=== PATIENT | male | born 1960 | race Native Hawaiian/Other Pacific Islander ===

== ENCOUNTER 2023-06-22 05:08 | Emergency (ER) | payer MEDICARE ==
[2023-06-22 05:30] VITALS: TEMP 98.5
[2023-06-22 05:51] LABS: Group A Strep NOT DETECTED (NEGATIVE)
[2023-06-22 06:03] LABS: INFLUENZA A NEGATIVE (NEGATIVE); INFLUENZA B NEGATIVE (NEGATIVE); RESPIRATORY SYNCTIAL VIRUS NEGATIVE (NEGATIVE); SARS-CoV-2 Xpert Express NEGATIVE (NEGATIVE)
--- NOTE | 2023-06-22 06:43 | ERPHSYRPT ---
- History of Present Illness Source: patient Exam Limitations: no limitations Patient Subjective Stated Complaint: pt states he has cough and chest congestions for last 4 days. Triage Nursing Assessment: pt alert and oriented, answers questions approp. pt ambulates into room iwth steady gait noted. respirations nonlabored with dry cough occasionally. exp wheezes noted bilat. skin warm and dry. Hx Tetanus, Diphtheria Vaccination/Date Given: Yes Hx Influenza Vaccination/Date Given: Yes Hx Pneumococcal Vaccination/Date Given: Yes Immunizations Up to Date: Yes <KIKE JONHSON - Last Filed: 06/22/23 06:39> <SALLY LONDON - Last Filed: 06/22/23 09:02> - History of Present Illness Time Seen by Provider: 06/22/23 06:09 Physician History: 63-year-old male with history of hypertension, hyperlipidemia, CVA with some residual weakness presented in the ER with complaints of chest congestion and cough for the last 4 days. Patient reports coughing up clear to yellow sputum small in amount and because of repeated coughing having generalized chest soreness. Cough gets worse especially at nighttime with inability to sleep. Reports feeling weak fatigued and tired/worn out. No fever or chills reported. Mild shortness of breath with activity. (KIKE JOHNSON) Allergies/Adverse Reactions: lisinopril Adverse Reaction (Severe, Verified 06/22/23 05:30) Swelling of Tongue and Lips bandaid Allergy (Mild, Uncoded 06/22/23 05:30) Rash Travel Risk - International Travel Have you traveled outside of the country in past 3 weeks: No - Coronavirus Screening Are you exhibiting any of the following symptoms?: Yes Symptoms: Cough: New Onset, Headaches/Body Aches/Fatigue Close contact with a COVID-19 positive Pt in past 14-21 Days: No - Vaccine Status Have you recieved a Covid-19 vaccination: Yes Access Coordinator: Moderna - Vaccination Dates Date of 2cond Vaccination (if applicable): 2022 <KIKE JOHNSON - Last Filed: 06/22/23 06:39> - Review of Systems Constitutional: Fatigue, Weakness Eyes: No Symptoms Ears, Nose, & Throat: No Symptoms Respiratory: Cough, Dyspnea, Dyspnea on Exertion (CHILD), Wheezing Cardiac: No Symptoms Abdominal/Gastrointestinal: No Symptoms Genitourinary Symptoms: No Symptoms Musculoskeletal: No Symptoms Skin: No Symptoms Neurological: No Headache Hematologic/Lymphatic: No Symptoms Immunological/Allergic: No Symptoms <KALE JOHNSONR - Last Filed: 06/22/23 06:39> - Past Medical History Neurological History: Stroke Cardiac History: Coronary Artery Disease, Hypertension, Myocardial Infarction (NM) History: Other - Past Surgical History Past Surgical History: Yes Genitourinary: Other Musculoskeletal: Orthopedic Surgery Other Surgical History: kidney stone, bilat shoulder surgeries, thumb surgery - Social History Smoking Status: Never smoker Exposure to second hand smoke: No Drug Use: none Patient Lives Alone: No <KIKE JOHNSON - Last Filed: 06/22/23 06:39> - Physical Exam General Appearance: no apparent distress, alert Eye Exam: PERRL/EOMI Ears, Nose, Throat Exam: hearing grossly normal, pharyngeal erythema Neck Exam: normal inspection, supple, full range of motion Respiratory Exam: diminished breath sounds, wheezing Cardiovascular/Chest Exam: normal heart sounds, regular rate/rhythm Abdominal/Gastrointestinal Exam: soft, normal bowel sounds, No tenderness Neurologic Exam: alert, oriented x 3, cooperative Skin Exam: normal color SpO2 Interpretation: normal SpO2: 92 O2 Delivery: Room Air <KIKE JOHNSON - Last Filed: 06/22/23 06:39> - Nursing Vital Signs Nursing Vital Signs: Initial Vital Signs Temperature 98.5 F 06/22/23 05:13 Pulse Rate 77 06/22/23 05:13 Respiratory Rate 16 06/22/23 05:13 Blood Pressure 165/99 06/22/23 05:13 O2 Sat by Pulse Oximetry 94 L 06/22/23 05:13 Pain Scale Pain Intensity 5 Ordered Tests: Active Orders 24 hr Category Date Time Status Fingerer STAT Care 06/22/23 06:38 Active EKG-ER Only STAT Care 06/22/23 06:38 Active IV Insertion STAT Care 06/22/23 06:38 Active CHEST 1 VIEW (PORTABLE) Stat Exams 06/22/23 05:40 Completed BLOOD CULTURE Stat Lab 06/22/23 07:00 Received CBC W DIFF Stat Lab 06/22/23 06:50 Completed CMP Stat Lab 06/22/23 06:50 Completed Lactic Acid Stat Lab 06/22/23 06:38 Completed MAGNESIUM Stat Lab 06/22/23 06:50 Completed NT PRO BNPII Stat Lab 06/22/23 06:50 Completed PROCALCITONIN Stat Lab 06/22/23 06:50 Completed TROPONIN Q4H Lab 06/22/23 06:50 Completed TROPONIN Q4H Lab 06/22/23 10:45 Ordered TROPONIN Q4H Lab 06/22/23 14:45 Ordered Medication Summary Discontinued Medications Generic Name Dose Route Start Last Admin Trade Name Cait PRN Reason Stop Dose Admin Albuterol/Ipratropium 3 ml 06/22/23 06:38 06/22/23 07:11 Ipratropium/Albuterol Sulfate 3 Ml Ampul.Neb IH 06/22/23 06:39 3 ml STAT ONE Administration Albuterol/Ipratropium Confirm 06/22/23 07:08 Ipratropium/Albuterol Sulfate 3 Ml Ampul.Neb Administered 06/22/23 07:09 Dose 3 ml IH .STK-MED ONE Methylprednisolone Sodium 0 mg 06/22/23 07:17 06/22/23 07:42 Succinate 125 mg/ Sterile IV 06/22/23 07:18 125 mg Water 2 ml STAT ONE Administration Ceftriaxone Sodium 1 gm in 100 mls @ 200 mls/hr 06/22/23 07:16 06/22/23 08:14 Rocephin 1 Gm / 100 Ml Nacl IV 06/22/23 07:45 Infused STAT ONE Infusion Ceftriaxone Sodium Confirm 06/22/23 07:31 Rocephin 1 Gm / 100 Ml Nacl Administered 06/22/23 07:32 Dose 1 gm in 100 mls @ ud IV .STK-MED ONE Methylprednisolone Sodium Succinate Confirm 06/22/23 07:31 Methylprednis Sod Succ 125 Mg/2 Ml Vial Administered 06/22/23 07:32 Dose 125 mg .ROUTE .STK-MED ONE Sterile Water Confirm 06/22/23 07:31 Water For Injection,Sterile 10 Ml Vial Administered 06/22/23 07:32 Dose 10 ml IJ .STK-MED ONE Lab/Rad Data: Laboratory Result Diagrams 06/22/23 06:50 06/22/23 06:50 Laboratory Results 06/22/23 06/22/23 06/22/23 Range/Units 06:50 06:50 06:50 WBC 9.6 (4.0-10.5) x10^3/uL RBC 3.95 L (4.1-5.6) x10^6/uL Hgb 12.7 (12.5-18.0) g/dL Hct 37.9 L (42-50) % MCV 95.9 (78-100) fL MCH 32.2 H (26-32) pg MCHC 33.5 (32-36) g/dL RDW 13.5 (11.5-14.0) % Plt Count 166 (150-450) x10^3/uL MPV 9.3 (7.5-11.0) fL Gran % 66.3 H (36.0-66.0) % Immature Gran % (Auto) 0.3 (0.00-0.4) % Nucleat RBC Rel Count 0.0 (0.00-0.1) % Eos # (Auto) 0.25 (0-0.5) x10^3/uL Immature Gran # (Auto) 0.03 (0.00-0.03) x10^3u/L Absolute Lymphs (auto) 1.64 (1.0-4.6) x10^3/uL Absolute Monos (auto) 1.28 (0.0-1.3) x10^3/uL Absolute Nucleated RBC 0.00 (0.00-0.01) x10^3u/L Lymphocytes % 17.0 L (24.0-44.0) % Monocytes % 13.3 H (0.0-12.0) % Eosinophils % 2.6 (0.00-5.0) % Basophils % 0.5 (0.0-0.4) % Absolute Granulocytes 6.39 (1.4-6.9) x10^3/uL Basophils # 0.05 (0-0.4) x10^3/uL Sodium 140 (137-145) mmol/L Potassium 3.4 L (3.5-5.1) mmol/L Chloride 108 H (98-107) mmol/L Carbon Dioxide 32 H (22-30) mmol/L Anion Gap 3.7 L (5-15) MEQ/L BUN 11 (9-20) mg/dL Creatinine 0.87 (0.66-1.25) mg/dL Estimated GFR 95.8 ML/MIN Glucose 103 (74-106) mg/dL Lactic Acid (0.4-2.0) Calcium 9.0 (8.4-10.2) mg/dL Magnesium 2.2 (1.6-2.3) mg/dL Total Bilirubin 0.80 (0.2-1.3) mg/dL AST 28 (17-59) U/L ALT 30 (0-50) U/L Alkaline Phosphatase 79 (38-126) U/L Troponin I < 0.012 (0.000-0.034) ng/mL NT-Pro-B Natriuret Pep 144 (<300) pg/mL Serum Total Protein 7.2 (6.3-8.2) g/dL Albumin 3.7 (3.5-5.0) g/dL Procalcitonin 0.213 H (0.030-0.080) ng/mL Influenza Type A Ag (NEGATIVE) Influenza Type B Ag (NEGATIVE) RSV (PCR) (NEGATIVE) SARS-CoV-2 (PCR) (NEGATIVE) Group A Strep Antibody (NEGATIVE) 06/22/23 06/22/23 Range/Units 06:38 05:20 WBC (4.0-10.5) x10^3/uL RBC (4.1-5.6) x10^6/uL Hgb (12.5-18.0) g/dL Hct (42-50) % MCV (78-100) fL MCH (26-32) pg MCHC (32-36) g/dL RDW (11.5-14.0) % Plt Count (150-450) x10^3/uL MPV (7.5-11.0) fL Gran % (36.0-66.0) % Immature Gran % (Auto) (0.00-0.4) % Nucleat RBC Rel Count (0.00-0.1) % Eos # (Auto) (0-0.5) x10^3/uL Immature Gran # (Auto) (0.00-0.03) x10^3u/L Absolute Lymphs (auto) (1.0-4.6) x10^3/uL Absolute Monos (auto) (0.0-1.3) x10^3/uL Absolute Nucleated RBC (0.00-0.01) x10^3u/L Lymphocytes % (24.0-44.0) % Monocytes % (0.0-12.0) % Eosinophils % (0.00-5.0) % Basophils % (0.0-0.4) % Absolute Granulocytes (1.4-6.9) x10^3/uL Basophils # (0-0.4) x10^3/uL Sodium (137-145) mmol/L Potassium (3.5-5.1) mmol/L Chloride (98-107) mmol/L Carbon Dioxide (22-30) mmol/L Anion Gap (5-15) MEQ/L BUN (9-20) mg/dL Creatinine (0.66-1.25) mg/dL Estimated GFR ML/MIN Glucose (74-106) mg/dL Lactic Acid 0.7 (0.4-2.0) Calcium (8.4-10.2) mg/dL Magnesium (1.6-2.3) mg/dL Total Bilirubin (0.2-1.3) mg/dL AST (17-59) U/L ALT (0-50) U/L Alkaline Phosphatase (38-126) U/L Troponin I (0.000-0.034) ng/mL NT-Pro-B Natriuret Pep (<300) pg/mL Serum Total Protein (6.3-8.2) g/dL Albumin (3.5-5.0) g/dL Procalcitonin (0.030-0.080) ng/mL Influenza Type A Ag NEGATIVE (NEGATIVE) Influenza Type B Ag NEGATIVE (NEGATIVE) RSV (PCR) NEGATIVE (NEGATIVE) SARS-CoV-2 (PCR) NEGATIVE (NEGATIVE) Group A Strep Antibody NOT DETECTED (NEGATIVE) - Progress Progress: improved, re-examined Air Movement: fair Blood Culture(s) Obtained: Yes Antibiotics given: Yes <SALLY LONDON - Last Filed: 06/22/23 09:02> - Progress Progress Note: 06/22/23 08:58 The initial chest x-ray was interpreted by Dr. Johnson. He felt that there was bibasilar airspace disease. The final interpretation was performed by the radiologist and his interpretation is no acute cardiopulmonary process. However, the patient did present with shortness of breath and had lower than expected oxygen saturation levels which have improved to the point where he is ambulating up and down the oropeza with a oxygen saturation level of 93 to 94%. In addition, the patient has an elevated procalcitonin level. We provided the pat jasbir with Rocephin 1 g intravenously. I will remotely send a prescription of Levaquin, prednisone and albuterol inhaler (if he does not have nebulizer treatments available) to his pharmacy. (SALLY LONDON) Medical Desision Making - Diagnostic Testing Diagnostic test were ordered, analyzed, and reviewed by me: Yes Radiological Interpretation: Reviewed by me, Teleradiologist Report - Risk of complications The pt has a mod risk of morbidity or mortality based on: Need for prescription drug management <SALLY LONDON - Last Filed: 06/22/23 09:02> <KIKE JOHNSON - Last Filed: 06/22/23 06:39> - Departure Departure Disposition: Home Critical Care Time: No <SALLY LONDON - Last Filed: 06/22/23 09:02> - Departure Clinical Impression: Upper respiratory infection, Shortness of breath Condition: Stable Additional Instructions: Drink plenty of fluids. Take your medication as prescribed. Avoid exposure to any type of smoke. Call your primary care physician today, 06/22/2023, to make arranges for follow-up appointment the next 3 to 5 days. Prescriptions: Prednisone 10 mg [Deltasone 10 mg] 10 mg PO TID #12 tablet Levofloxacin [Levaquin 500 MG Tablet] 500 mg PO DAILY #7 tablet Albuterol 8 gm Mdi Hfa [Ventolin Hfa MDI] 8 gm IH Q4H #1 unit
[2023-06-22] MEDS ORDERED: DUONEB 0.5-3 MG/3 ml Neb IH ONE (07:08)
[2023-06-22] MEDS: DUONEB 0.5-3 MG/3 ml Neb IH ONE (07:11)
[2023-06-22 07:16] LABS: Absolute Neutrophil Ct (ANC) 6.39 x10^3/uL (1.4-6.9); BASOPHIL % 0.5 % (0.0-0.4); Basophil (Absolute #) 0.05 x10^3/uL (0-0.4); Eosinophil % 2.6 % (0.00-5.0); Eosinophil (Absolute #) 0.25 x10^3/uL (0-0.5); Hematocrit 37.9 % (42-50); Hemoglobin 12.7 g/dL (12.5-18.0); IMMATURE GRAN # 0.03 x10^3u/L (0.00-0.03); IMMATURE GRAN % 0.3 % (0.00-0.4); Lymphocyte (Absolute #) 1.64 x10^3/uL (1.0-4.6); Mean Cell Volume 95.9 fL (78-100); Mean Corpuscular Hemoglobin 32.2 pg (26-32); Mean Corpuscular Hgb Concent. 33.5 g/dL (32-36); Mean Platelet Volume 9.3 fL (7.5-11.0); Monocyte (Absolute #) 1.28 x10^3/uL (0.0-1.3); Monocytes % 13.3 % (0.0-12.0); Neutrophil % 66.3 % (36.0-66.0); Platelet Count 166 x10^3/uL (150-450); Red Blood Count 3.95 x10^6/uL (4.1-5.6); Red Cell Distribution Width 13.5 % (11.5-14.0); White Blood Count 9.6 x10^3/uL (4.0-10.5)
[2023-06-22] MEDS ORDERED: solu-MEDROL ONE (07:31)
[2023-06-22] MEDS ORDERED: ROCEPHIN 1 GM / 100 ML NaCl 1 GM/100 ML IVPB IV ONE (07:31)
[2023-06-22] MEDS ORDERED: Sterile H2O 10 ml IJ ONE (07:31)
[2023-06-22 07:41] LABS: ALBUMIN 3.7 g/dL (3.5-5.0); ANION GAP 3.7 MEQ/L (5-15); BILIRUBIN,TOTAL 0.8 mg/dL (0.2-1.3); Creatinine 1 0.87 mg/dL (0.66-1.25); EST GLOMERULAR FILTRATION RATE 95.8 ML/MIN; MAGNESIUM 2.2 mg/dL (1.6-2.3); PROCALCITONIN 0.213 ng/mL (0.030-0.080); Potassium 3.4 mmol/L (3.5-5.1); Total Protein 7.2 g/dL (6.3-8.2)
[2023-06-22] MEDS: solu-MEDROL 125 MG, Sterile H2O 10 ml 2 ML IV ONE (07:42)
[2023-06-22] MEDS: ROCEPHIN 1 GM / 100 ML NaCl 1 GM/100 ML IVPB IV ONE (07:43)
--- NOTE | 2023-06-22 08:48 | XRAY ---
Indication: Cough and congestion. Comparison: None Portable chest inflated and clear. Heart not enlarged with mild tortuous descending aorta. Bony thorax intact. No acute findings.
[2023-06-22 09:51] VITALS: BP 147/94; PULSE 68; RESP 16; O2SAT 93
== END 2023-06-22 09:51 | disposition home or self-care (01) ==
LOC: ED 05:08
DX: J06.9 Acute upper respiratory infection, unspecified (principal); R06.02 Shortness of breath; R05.1 Acute cough; I10 Essential (primary) hypertension; E78.5 Hyperlipidemia, unspecified; Z79.52 Long term (current) use of systemic steroids
CPT/HCPCS: 0241U; 36000; 36415; 71045; 80053; 83605; 83735; 83880; 84145; 84484; 85025; 87040; 87651; 93005; 93041; 94640; 96374; 99284; J0696; J2930; A9270-GY

== ENCOUNTER 2024-01-28 08:12 | Inpatient (IN) | payer MEDICARE ==
--- NOTE | 2024-01-28 08:18 | ERPHSYRPT ---
- History of Present Illness Time Seen by Provider: 01/28/24 08:18 Source: patient, family, EMS, old records Physician History: This is a 63-year-old white male patient of nurse practitioner natacha who was brought into the emergency department by the paramedics secondary to frequent falls. Since last evening, the patient has fallen 3 times. There has been, recently, issues with the patient having low blood pressure and his primary care provider has removed a single antihypertensive agent per patient report. Despite this change, the patient states he is fallen 3 times since last evening. He complains of left shoulder pain, left hip pain and lower back pain. Patient is seeing a pain specialist, Dr. Rutledge, on 01/31/2024. Patient has a history of hypertension, hyperlipidemia, CVA with residual weakness and coronary artery disease. Patient does not have chest pain or shortness of breath at this time. Patient had a systolic blood pressure of 74 at home when the paramedics arrived to bring him to the emergency department. Patient arrives to the emergency department with intravenous normal saline running and his systolic blood pressure on arrival is 94. Paramedics placed a c-collar on this patient. He is awake alert and oriented. Patient states he is not on any narcotic medication but did start gabapentin recently. Occurred: yesterday Injuries/Pain Location: head, neck, upper extremity, back (Lower back), lower extremity (Left shoulder left hip), lower Loss of Consciousness: no loss of consciousness Quality: aching Severity of Pain-Max: mild Severity of Pain-Current: mild Modifying Factors: Improves With: movement Associated Symptoms (Fall): dizziness, extremity injury (Left shoulder), lightheadedness, No chest pain, No shortness of breath, No vision changes Allergies/Adverse Reactions: lisinopril Adverse Reaction (Severe, Verified 01/28/24 08:16) Swelling of Tongue and Lips bandaid Allergy (Mild, Uncoded 01/28/24 08:16) Rash Home Medications: Unobtainable 01/28/24 [History] Hx Tetanus, Diphtheria Vaccination/Date Given: Yes Hx Influenza Vaccination/Date Given: Yes Hx Pneumococcal Vaccination/Date Given: Yes Travel Risk - International Travel Have you traveled outside of the country in past 3 weeks: No - Emerging Infectious Disease Are you exhibiting symptoms associated with any current EIDs: No - Review of Systems Constitutional: Weakness Eyes: No Symptoms Ears, Nose, & Throat: No Symptoms Respiratory: No Symptoms Cardiac: No Symptoms Abdominal/Gastrointestinal: No Symptoms Genitourinary Symptoms: No Symptoms Musculoskeletal: Back Pain, Fall, Joint Pain (Bilateral hip pain left [place] right) Skin: No Symptoms Neurological: Dizziness Psychological: No Symptoms Endocrine: No Symptoms Hematologic/Lymphatic: No Symptoms Immunological/Allergic: No Symptoms All Other Systems: Reviewed and Negative - Past Medical History Neurological History: Stroke Cardiac History: Coronary Artery Disease, Hypertension, Myocardial Infarction ([place]) History: Other - Past Surgical History Past Surgical History: Yes Genitourinary: Other Musculoskeletal: Orthopedic Surgery Other Surgical History: kidney stone, bilat shoulder surgeries, thumb surgery - Social History Smoking Status: Never smoker Exposure to second hand smoke: No Drug Use: none Patient Lives Alone: No - Nursing Vital Signs Nursing Vital Signs: Initial Vital Signs Pulse Rate 99 H 01/28/24 08:13 Respiratory Rate 23 01/28/24 08:13 Blood Pressure 95/52 01/28/24 08:13 O2 Sat by Pulse Oximetry 92 L 01/28/24 08:13 Pain Scale Pain Intensity 8 - [place] Coma Score Best Eye Response ([place]): (4) open spontaneously Best Verbal Response ([place]): (5) oriented Best Motor Response ([place]): (6) obeys commands [place] Total: 15 - Physical Exam General Appearance: no apparent distress, alert, anxiety Head Injury: no evidence of injury Eye Exam: PERRL/EOMI, eyes nml inspection ENT Exam: airway nml, nml ext.inspection Neck Exam: trachea midline, c-collar in place Cardiovascular Exam: normal heart sounds, regular rate/rhythm, normal peripheral pulses Gastrointestinal Exam: soft, normal bowel sounds, No tenderness Rectal Exam: not done Back Exam: normal inspection, normal range of motion, No CVA tenderness, No vertebral tenderness Extremity Exam: normal inspection, normal range of motion, pelvis stable, hip tenderness (Bilateral), No deformities Neurologic Exam: alert, oriented x 3, cooperative, barrel waterer II-XII nml as tested, sensation nml Skin Exam: normal color SpO2 Interpretation: borderline oxygenation O2 Delivery: Room Air - Course Nursing assessment & vital signs reviewed: Yes Ordered Tests: Active Orders 24 hr Category Date Time Status EKG-ER Only STAT Care 01/28/24 08:22 Active Pulse Oximetry (ED) STAT Care 01/28/24 08:22 Active Telemetry q4h Care 01/28/24 09:10 Active CERVICAL SPINE WO CONTRAST [CT] Stat Exams 01/28/24 08:23 Completed CHEST 1 VIEW (PORTABLE) Stat Exams 01/28/24 10:55 Completed HEAD WITHOUT CONTRAST [CT] Stat Exams 01/28/24 08:23 Completed HIP JOSE ALBERTO (4V) INCL PELV IF DONE Stat Exams 01/28/24 08:24 Completed LUMBAR LIMITED (2 OR 3 VIEWS) Stat Exams 01/28/24 08:24 Completed SHOULDER Stat Exams 01/28/24 08:24 Completed BLOOD CULTURE Stat Lab 01/28/24 11:48 Ordered CBC W DIFF Stat Lab 01/28/24 08:36 Completed CMP Stat Lab 01/28/24 08:36 Completed ETHYL ALCOHOL Stat Lab 01/28/24 08:36 Completed Lactic Acid Stat Lab 01/28/24 11:15 Completed MAGNESIUM Stat Lab 01/28/24 08:36 Completed MONO SCREEN Stat Lab 01/28/24 08:30 Completed NT PRO BNPII Stat Lab 01/28/24 08:36 Completed TROPONIN Q4H Lab 01/28/24 08:36 Completed TROPONIN Q4H Lab 01/28/24 10:45 Completed TROPONIN Q4H Lab 01/28/24 16:30 Ordered UA W/RFX UR CULTURE Stat Lab 01/28/24 10:34 Completed Urine Triage Profile Stat Lab 01/28/24 10:34 Completed Medication Summary Generic Name Dose Route Start Last Admin Trade Name Freq PRN Reason Stop Dose Admin Sodium Chloride 1,000 mls @ 100 mls/hr 01/28/24 08:30 01/28/24 09:27 Sodium Chloride 0.9% 1000 Ml IV 02/27/24 08:29 200 mls/hr .Q10H ANG Administration Ceftriaxone Sodium 1 gm in 100 mls @ 200 mls/hr 01/28/24 12:00 Rocephin 1 Gm / 100 Ml Nacl IV 01/28/24 12:29 STAT ONE Discontinued Medications Generic Name Dose Route Start Last Admin Trade Name Freq PRN Reason Stop Dose Admin Acetaminophen 650 mg 01/28/24 10:38 01/28/24 10:46 Acetaminophen 325 Mg Tablet PO 01/28/24 10:39 650 mg STAT ONE Administration Acetaminophen Confirm 01/28/24 10:45 Acetaminophen 325 Mg Tablet Administered 01/28/24 10:46 Dose 650 mg .ROUTE .STK-MED ONE Acetaminophen Confirm 01/28/24 10:48 Acetaminophen 325 Mg Tablet Administered 01/28/24 10:49 Dose 325 mg .ROUTE .STK-MED ONE Acetaminophen Confirm 01/28/24 10:53 Acetaminophen 325 Mg Tablet Administered 01/28/24 10:54 Dose 650 mg .ROUTE .STK-MED ONE Potassium Chloride 20 meq in 100 mls @ 50 mls/hr 01/28/24 09:10 01/28/24 09:30 Potassium Chloride 20 Meq In Water 100ml IV 01/28/24 11:09 50 mls/hr STAT ONE Administration Magnesium Sulfate/Dextrose 100 mls @ 200 mls/hr 01/28/24 09:10 01/28/24 09:32 Magnesium 1 Gm / 100 Ml D5w IV 01/28/24 09:39 200 mls/hr STAT ONE Administration Magnesium Sulfate/Dextrose Confirm 01/28/24 09:25 Magnesium 1 Gm / 100 Ml D5w Administered 01/28/24 09:26 Dose 100 mls @ ud IV .STK-MED ONE Potassium Chloride Confirm 01/28/24 09:25 Potassium Chloride 20 Meq In Water 100ml Administered 01/28/24 09:26 Dose 100 mls @ ud IV .STK-MED ONE Potassium Chloride 20 meq 01/28/24 09:10 01/28/24 09:37 Potassium Chloride Tab 10 Meq Tab PO 01/28/24 09:11 Not Given STAT ONE Potassium Chloride Confirm 01/28/24 09:24 Potassium Chloride Tab 10 Meq Tab Administered 01/28/24 09:25 Dose 20 meq .ROUTE .STK-MED ONE Lab/Rad Data: Laboratory Result Diagrams 01/28/24 08:36 01/28/24 08:36 Laboratory Results 01/28/24 01/28/24 01/28/24 Range/Units 11:15 10:45 10:34 WBC (4.23-9.07) x10^3/uL RBC (4.63-6.08) x10^6/uL Hgb (13.7-17.5) g/dL Hct (40.1-51.0) % MCV (79.0-92.2) fL MCH (25.7-32.2) pg MCHC (32.3-36.5) g/dL RDW (11.6-14.4) % Plt Count (163-337) x10^3/uL MPV (9.4-12.4) fL Gran % (34.0-67.9) % Immature Gran % (Auto) (0.001-0.429) % Nucleat RBC Rel Count (0.00-0.2) % Eos # (Auto) (0.04-0.54) x10^3/uL Immature Gran # (Auto) (0.001-0.031) x10^3u/L Absolute Lymphs (auto) (1.32-3.57) x10^3/uL Absolute Monos (auto) (0.30-0.82) x10^3/uL Absolute Nucleated RBC (0.00-0.012) x10^3u/L Lymphocytes % (21.8-53.1) % Monocytes % (5.3-12.2) % Eosinophils % (0.8-7.0) % Basophils % (0.2-1.2) % Absolute Granulocytes (1.78-5.38) x10^3/uL Basophils # (0.01-0.08) x10^3/uL Sodium (135-145) mmol/L Potassium (3.5-5.1) mmol/L Chloride (98-107) mmol/L Carbon Dioxide (22-30) mmol/L Anion Gap (5-15) MEQ/L BUN (9-20) mg/dL Creatinine (0.66-1.25) mg/dL Estimated GFR ML/MIN Glucose (74-106) mg/dL Lactic Acid 1.8 (0.4-2.0) Calcium (8.4-10.2) mg/dL Magnesium (1.6-2.3) mg/dL Total Bilirubin (0.2-1.3) mg/dL AST (17-59) U/L ALT (0-50) U/L Alkaline Phosphatase (38-126) U/L Troponin I 0.028 (0.000-0.033) ng/mL NT-Pro-B Natriuret Pep (<300) pg/mL Serum Total Protein (6.3-8.2) g/dL Albumin (3.5-5.0) g/dL Urine Color (Yellow) Urine Appearance (Clear) Urine pH (4.6-8.0) Ur Specific [place] (1.005-1.030) Urine Protein (Negative) Urine Glucose (UA) (Negative) mg/dL Urine Ketones (Negative) Urine Blood (Negative) Urine Nitrite (Negative) Urine Bilirubin (Negative) Urine Urobilinogen (0.2) mg/dL Ur Leukocyte Esterase (Negative) U Hyaline Cast (Auto) (0-2) /LPF Urine Microscopic RBC (0-5) /HPF Urine Microscopic WBC (0-5) /HPF Ur Epithelial Cells (None Seen) /HPF Urine Bacteria (None Seen) /HPF Urine Culture Reflexed (NO) Urine Opiates Level NEGATIVE (NEGATIVE) Ur Methadone NEGATIVE (NEGATIVE) Urine Barbiturates NEGATIVE (NEGATIVE) Ur Phencyclidine (PCP) NEGATIVE (NEGATIVE) Urine Amphetamine NEGATIVE (NEGATIVE) U Benzodiazepine Level NEGATIVE (NEGATIVE) Urine Cocaine NEGATIVE (NEGATIVE) Urine Marijuana (THC) NEGATIVE (NEGATIVE) Ethyl Alcohol (0-10) mg/dL Monoscreen (NEGATIVE) Slides for Path Review 01/28/24 01/28/24 01/28/24 Range/Units 10:34 08:36 08:36 WBC (4.23-9.07) x10^3/uL RBC (4.63-6.08) x10^6/uL Hgb (13.7-17.5) g/dL Hct (40.1-51.0) % MCV (79.0-92.2) fL MCH (25.7-32.2) pg MCHC (32.3-36.5) g/dL RDW (11.6-14.4) % Plt Count (163-337) x10^3/uL MPV (9.4-12.4) fL Gran % (34.0-67.9) % Immature Gran % (Auto) (0.001-0.429) % Nucleat RBC Rel Count (0.00-0.2) % Eos # (Auto) (0.04-0.54) x10^3/uL Immature Gran # (Auto) (0.001-0.031) x10^3u/L Absolute Lymphs (auto) (1.32-3.57) x10^3/uL Absolute Monos (auto) (0.30-0.82) x10^3/uL Absolute Nucleated RBC (0.00-0.012) x10^3u/L Lymphocytes % (21.8-53.1) % Monocytes % (5.3-12.2) % Eosinophils % (0.8-7.0) % Basophils % (0.2-1.2) % Absolute Granulocytes (1.78-5.38) x10^3/uL Basophils # (0.01-0.08) x10^3/uL Sodium 141 (135-145) mmol/L Potassium 2.8 L* (3.5-5.1) mmol/L Chloride 112 H (98-107) mmol/L Carbon Dioxide 24 (22-30) mmol/L Anion Gap 7.8 (5-15) MEQ/L BUN 16 (9-20) mg/dL Creatinine 1.71 H (0.66-1.25) mg/dL Estimated GFR 43.9 ML/MIN Glucose 108 H (74-106) mg/dL Lactic Acid (0.4-2.0) Calcium 8.3 L (8.4-10.2) mg/dL Magnesium 1.3 L (1.6-2.3) mg/dL Total Bilirubin 0.70 (0.2-1.3) mg/dL AST 26 (17-59) U/L ALT 21 (0-50) U/L Alkaline Phosphatase 69 (38-126) U/L Troponin I 0.033 (0.000-0.033) ng/mL NT-Pro-B Natriuret Pep 3030 (<300) pg/mL Serum Total Protein 5.4 L (6.3-8.2) g/dL Albumin 2.8 L (3.5-5.0) g/dL Urine Color Yellow (Yellow) Urine Appearance Cloudy A (Clear) Urine pH 7.0 (4.6-8.0) Ur Specific [place] 1.010 (1.005-1.030) Urine Protein Trace A (Negative) Urine Glucose (UA) Negative (Negative) mg/dL Urine Ketones Negative (Negative) Urine Blood Moderate A (Negative) Urine Nitrite Negative (Negative) Urine Bilirubin Negative (Negative) Urine Urobilinogen 0.2 (0.2) mg/dL Ur Leukocyte Esterase Moderate A (Negative) U Hyaline Cast (Auto) 3-5 A (0-2) /LPF Urine Microscopic RBC 51-100 A (0-5) /HPF Urine Microscopic WBC 51-100 A (0-5) /HPF Ur Epithelial Cells None Seen (None Seen) /HPF Urine Bacteria Many A (None Seen) /HPF Urine Culture Reflexed ORDERED SEPARATELY (NO) Urine Opiates Level (NEGATIVE) Ur Methadone (NEGATIVE) Urine Barbiturates (NEGATIVE) Ur Phencyclidine (PCP) (NEGATIVE) Urine Amphetamine (NEGATIVE) U Benzodiazepine Level (NEGATIVE) Urine Cocaine (NEGATIVE) Urine Marijuana (THC) (NEGATIVE) Ethyl Alcohol < 10 (0-10) mg/dL Monoscreen (NEGATIVE) Slides for Path Review 01/28/24 01/28/24 Range/Units 08:36 08:30 WBC 21.5 H (4.23-9.07) x10^3/uL RBC 3.57 L (4.63-6.08) x10^6/uL Hgb 11.2 L (13.7-17.5) g/dL Hct 34.0 L (40.1-51.0) % MCV 95.2 H (79.0-92.2) fL MCH 31.4 (25.7-32.2) pg MCHC 32.9 (32.3-36.5) g/dL RDW 13.4 (11.6-14.4) % Plt Count 140 L (163-337) x10^3/uL MPV 9.2 L (9.4-12.4) fL Gran % 82.7 H (34.0-67.9) % Immature Gran % (Auto) 0.7 H (0.001-0.429) % Nucleat RBC Rel Count 0.0 (0.00-0.2) % Eos # (Auto) 0 L (0.04-0.54) x10^3/uL Immature Gran # (Auto) 0.15 H (0.001-0.031) x10^3u/L Absolute Lymphs (auto) 0.76 L (1.32-3.57) x10^3/uL Absolute Monos (auto) 2.77 H (0.30-0.82) x10^3/uL Absolute Nucleated RBC 0.00 (0.00-0.012) x10^3u/L Lymphocytes % 3.5 L (21.8-53.1) % Monocytes % 12.9 H (5.3-12.2) % Eosinophils % 0.0 L (0.8-7.0) % Basophils % 0.2 (0.2-1.2) % Absolute Granulocytes 17.76 H (1.78-5.38) x10^3/uL Basophils # 0.04 (0.01-0.08) x10^3/uL Sodium (135-145) mmol/L Potassium (3.5-5.1) mmol/L Chloride (98-107) mmol/L Carbon Dioxide (22-30) mmol/L Anion Gap (5-15) MEQ/L BUN (9-20) mg/dL Creatinine (0.66-1.25) mg/dL Estimated GFR ML/MIN Glucose (74-106) mg/dL Lactic Acid (0.4-2.0) Calcium (8.4-10.2) mg/dL Magnesium (1.6-2.3) mg/dL Total Bilirubin (0.2-1.3) mg/dL AST (17-59) U/L ALT (0-50) U/L Alkaline Phosphatase (38-126) U/L Troponin I (0.000-0.033) ng/mL NT-Pro-B Natriuret Pep (<300) pg/mL Serum Total Protein (6.3-8.2) g/dL Albumin (3.5-5.0) g/dL Urine Color (Yellow) Urine Appearance (Clear) Urine pH (4.6-8.0) Ur Specific [place] (1.005-1.030) Urine Protein (Negative) Urine Glucose (UA) (Negative) mg/dL Urine Ketones (Negative) Urine Blood (Negative) Urine Nitrite (Negative) Urine Bilirubin (Negative) Urine Urobilinogen (0.2) mg/dL Ur Leukocyte Esterase (Negative) U Hyaline Cast (Auto) (0-2) /LPF Urine Microscopic RBC (0-5) /HPF Urine Microscopic WBC (0-5) /HPF Ur Epithelial Cells (None Seen) /HPF Urine Bacteria (None Seen) /HPF Urine Culture Reflexed (NO) Urine Opiates Level (NEGATIVE) Ur Methadone (NEGATIVE) Urine Barbiturates (NEGATIVE) Ur Phencyclidine (PCP) (NEGATIVE) Urine Amphetamine (NEGATIVE) U Benzodiazepine Level (NEGATIVE) Urine Cocaine (NEGATIVE) Urine Marijuana (THC) (NEGATIVE) Ethyl Alcohol (0-10) mg/dL Monoscreen NEGATIVE (NEGATIVE) Slides for Path Review YES - Progress Progress: improved, re-examined Progress Note: 01/28/24 08:34 Medical decision making and the assignment of moderate complexity to this patient's medical issue today is based on review of the patient's past medical history, review the patient's medication list, reviewed patient drug allergy list, history present illness and physical findings on examination. The workup in this patient includes placement of intravenous line, infusion normal saline solution, twelve-lead EKG, troponin level, CBC, CMP, magnesium level, urinalysi s, ethyl alcohol level, urine drug triage, CT scan of the head, CT scan of cervical spine, x-ray left shoulder, x-ray lumbar spine, x-ray of bilateral hips. Differential diagnosis includes but is not limited to hypotension induced dizziness and falls, anemia induced dizziness and fall, arrhythmia, dehydration, urinary tract infection, myocardial infarction, electrolyte abnormalities 01/28/24 10:17 The following radiographic studies were all interpreted by the radiologist and I reviewed the impression: Left shoulder x-ray no acute fracture or dislocation. Lumbar spine x-ray mild multilevel thoracolumbar degenerative changes without acute fracture or subluxation. Bilateral hip/pelvic x-ray no acute fracture or dislocation. CT scan without contrast of cervical spine shows no acute fracture or subluxation. There is mild bilateral TMJ degenerative changes. CT scan of the head without contrast shows paranasal sinus disease. Remainder of the study is within normal limits. 01/28/24 11:47 The chest x-ray was interpreted by the radiologist and I reviewed the impression. The impression states no new, acute findings. 01/28/24 12:01 I interpreted the patient's laboratory data results. Based on the patient's laboratory data results, the patient has a significant urinary tract infection and a significant leukocytosis and left shift. The patient's lactic acid level is normal. Patient's repeat troponin level is normal and decreased from the prior troponin level. I had briefly reviewed this patient's workup with Dr. Barrientos, our telehospitalist on at this time. I ordered the chest x-ray and troponin as well as a lactic acid level per her request. These were all normal. However, the urinalysis also returned and the patient has a significant urinary tract infection and likely has urosepsis causing the hypotension and the leukocytosis. 01/28/24 12:[address] Barrientos and updated her on the most recent laboratory data results. We will place this patient on telemetry and a full admission. I have started another bolus of normal saline solution. I also provided the patient with 1 g of Rocephin intravenously. Counseled pt/family regarding: lab results, diagnosis, rad results Medical Desision Making - Discussion of managment Care discussed with:: hospitalist Reviewed:: Test results, Need for additional workup Agreed on:: decision to admit Will see patient: in hospital - Diagnostic Testing Diagnostic test were ordered, analyzed, and reviewed by me: Yes Radiological Interpretation: Reviewed by me, Teleradiologist Report - Risk of complications The pt has a high risk of morbidity or mortality based on: Decision regarding hospitilization or escalation of hosp level of care - Departure Departure Disposition: In-patient Admission Clinical Impression: UTI (urinary tract infection), Hypotension, Hypokalemia, Hypomagnesemia, Fall with no significant injury Condition: Fair Critical Care Time: Yes Critical Care Time(excluding separately billable procedures): Critical 30-74 mins (50 minutes) Referrals: MARINA LEO NP [NON-STAFF PHY W/O PRIVILEGES] - Follow up/PCP as directed
[2024-01-28 08:44] LABS: Absolute Neutrophil Ct (ANC) 17.76 x10^3/uL (1.78-5.38); BASOPHIL % 0.2 % (0.2-1.2); Basophil (Absolute #) 0.04 x10^3/uL (0.01-0.08); Eosinophil (Absolute #) 0 x10^3/uL (0.04-0.54); Hemoglobin 11.2 g/dL (13.7-17.5); IMMATURE GRAN # 0.15 x10^3u/L (0.001-0.031); IMMATURE GRAN % 0.7 % (0.001-0.429); Lymphocyte (Absolute #) 0.76 x10^3/uL (1.32-3.57); Lymphocytes % 3.5 % (21.8-53.1); Mean Cell Volume 95.2 fL (79.0-92.2); Mean Corpuscular Hemoglobin 31.4 pg (25.7-32.2); Mean Corpuscular Hgb Concent. 32.9 g/dL (32.3-36.5); Mean Platelet Volume 9.2 fL (9.4-12.4); Monocyte (Absolute #) 2.77 x10^3/uL (0.30-0.82); Monocytes % 12.9 % (5.3-12.2); Neutrophil % 82.7 % (34.0-67.9); Platelet Count 140 x10^3/uL (163-337); Red Blood Count 3.57 x10^6/uL (4.63-6.08); Red Cell Distribution Width 13.4 % (11.6-14.4); White Blood Count 21.5 x10^3/uL (4.23-9.07)
[2024-01-28 09:03] LABS: Slide Review 1 YES
[2024-01-28 09:06] LABS: ALBUMIN 2.8 g/dL (3.5-5.0); ALKALINE PHOSPHATASE 69 U/L (38-126); ANION GAP 7.8 MEQ/L (5-15); BLOOD UREA NITROGEN 16 mg/dL (9-20); CHLORIDE 112 mmol/L (98-107); Calcium 8.3 mg/dL (8.4-10.2); Carbon Dioxide 24 mmol/L (22-30); Creatinine 1 1.71 mg/dL (0.66-1.25); EST GLOMERULAR FILTRATION RATE 43.9 ML/MIN; ETHYL ALCOHOL < 10 mg/dL (0-10); Glucose 108 mg/dL (74-106); MAGNESIUM 1.3 mg/dL (1.6-2.3); NT PRO BNPII 3030 pg/mL (<300); SGOT/AST 26 U/L (17-59); SGPT/ALT 21 U/L (0-50); SODIUM 141 mmol/L (135-145); Total Protein 5.4 g/dL (6.3-8.2)
[2024-01-28 09:08] LABS: Potassium 2.8 mmol/L (3.5-5.1)
[2024-01-28] MEDS ORDERED: Klor Con ONE (09:24)
[2024-01-28] MEDS ORDERED: POTASSIUM CHLORIDE 20 mEq IN WATER 100ML 100 ML IV ONE (09:25)
[2024-01-28] MEDS ORDERED: Sodium Chloride 0.9% 1000 ML 0 ML ONE (09:25)
[2024-01-28] MEDS ORDERED: Magnesium 1 Gm / 100 Ml D5W*** 100 ML IV ONE (09:25)
[2024-01-28] MEDS: Sodium Chloride 0.9% 1000 ML 1,000 ML IV SCH (09:27)
[2024-01-28] MEDS: POTASSIUM CHLORIDE 20 mEq IN WATER 100ML 20 MEQ/100 ML BAG IV ONE (09:30)
[2024-01-28] MEDS: Magnesium 1 Gm / 100 Ml D5W*** 100 ML IV ONE (09:32)
[2024-01-28] MEDS: Klor Con PO ONE (09:37)
[2024-01-28] MEDS ORDERED: Sodium Chloride 0.9% 1000 ML 1,000 ML ONE ×2 (09:46→13:07)
--- NOTE | 2024-01-28 09:53 | XRAY ---
Indication: Pain. Frequent falls. Multiple contiguous axial images obtained through the head without contrast. Comparison: None Normal appearing brain parenchyma, ventricles, and bony calvarium for patient's age. Mild mucosal thickening both ethmoid and lesser degree both frontal sinuses without fluid leveling. Mastoid air cells are clear. Impression: Paranasal sinus disease. Remaining CT head without contrast exam is normal.
--- NOTE | 2024-01-28 09:55 | XRAY ---
Indication: Pain. Frequent falls. Multiple contiguous axial images obtained through the cervical spine. Sagittal and coronal reformatted images obtained. Comparison: None Osseous structures demineralized. Axial images negative for acute fracture, suspicious bony lesions, or spinal canal stenosis. Minimal/mild C3-C7 degenerative endplate spurring and mild multilevel bilateral degenerative facet hypertrophy. Sagittal and coronal reformatted images demonstrates normal alignment with C5-C7 disc space narrowing. No acute compression fracture, subluxation, or jumped facet. Normal appearing craniocervical junction. Mild bilateral TMJ degenerative changes. Visualized noncontrasted soft tissues demonstrates minimal left carotid calcifications. Lung apices clear. Impression: 1. Chronic findings including osteopenia, multilevel degenerative spondylosis, bilateral TMJ degenerative changes, and left carotid calcifications. 2. Remaining CT cervical spine is negative.
--- NOTE | 2024-01-28 09:55 | XRAY ---
Indication: Fall injury. Comparison: None 3 view left shoulder demonstrates osteopenia, minimal AC degenerative arthropathy, tiny left carotid calcifications, right hemidiaphragm elevation, and borderline cardiomegaly. No other bony, articular, or soft tissue abnormalities.
--- NOTE | 2024-01-28 09:57 | XRAY ---
Indication: Fall injury. Comparison: None AP pelvis and 2 view left/right hip demonstrates osteopenia, small left superior acetabular spurring, and lower lumbar degenerative spondylosis reported separately. No other bony, articular, or soft tissue abnormalities.
--- NOTE | 2024-01-28 09:57 | XRAY ---
Indication: Fall injury. Comparison: None 3 view lumbar spine demonstrates 5 lumbar segments with osteopenia, mild dextroscoliosis centered at L1, minimal/mild multilevel thoracolumbar degenerative spondylosis greatest at L4-L5, and minimal scattered vascular calcifications. No other bony, articular, or soft tissue abnormalities.
[2024-01-28] MEDS ORDERED: TYLENOL 325 MG ONE ×3 (10:45→10:53)
[2024-01-28] MEDS: TYLENOL 325 MG PO ONE (10:46)
--- NOTE | 2024-01-28 11:39 | XRAY ---
Indication: Leukocytosis. Comparison: June 22, 2023 Portable chest again demonstrates normal heart and lungs. Bony thorax intact. No new/acute findings.
[2024-01-28 11:50] LABS: Appearance Cloudy (Clear); Bacteria Many /HPF (None Seen); Bilirubin Negative (Negative); Blood Moderate (Negative); Epithelial Cells None Seen /HPF (None Seen); Glucose, Urine Negative (Negative); Ketones Negative (Negative); Leukocyte Esterase Moderate (Negative); Nitrite Negative (Negative); Protein,Urine Dip Trace (Negative); RBC 51-100 /HPF (0-5); Urobilinogen 0.2 mg/dL (0.2); WBC 51-100 /HPF (0-5)
[2024-01-28 11:58] LABS: ADD URINE CULTURE? ORDERED SEPARATELY (NO)
[2024-01-28 12:06] LABS: Amphetamine,Urine NEGATIVE (NEGATIVE); Barbiturate,Urine NEGATIVE (NEGATIVE); Benzodiazepine,Urine NEGATIVE (NEGATIVE); Cocaine,Urine NEGATIVE (NEGATIVE); Methadone,Urine NEGATIVE (NEGATIVE); Opiate,Urine NEGATIVE (NEGATIVE); PCP,Urine NEGATIVE (NEGATIVE); THC,Urine NEGATIVE (NEGATIVE)
[2024-01-28] MEDS ORDERED: ROCEPHIN 1 GM / 100 ML NaCl 1 GM/100 ML IVPB IV ONE (12:10)
[2024-01-28] MEDS: ROCEPHIN 1 GM / 100 ML NaCl 1 GM/100 ML IVPB IV ONE (12:13)
[2024-01-28 12:35] LABS: INFLUENZA A NEGATIVE (NEGATIVE); INFLUENZA B NEGATIVE (NEGATIVE); RESPIRATORY SYNCTIAL VIRUS NEGATIVE (NEGATIVE); SARS-CoV-2 Xpert Express NEGATIVE (NEGATIVE)
[2024-01-28] MEDS: Sodium Chloride 0.9% 1000 ML 1,000 ML IV STA (13:08)
--- NOTE | 2024-01-28 14:13 | PCM.HP ---
<IJEOMA PORTILLO - Last Filed: 01/28/24 14:37> History of Present Illness - Chief Complaint Chief Complaint: Urosepsis Date: 01/28/24 History of Present Illness: Mr.MCMULLEN BRYSON is a 63 year old male with a pmhx of kidney stones, NE, CAD, Stroke, HTN, and MT who presented to ED 01/28/24 after experiencing several (7 x per pt report) falls at home. He reports that he has had ongoing hypotension and has been worked up OP by his PCP who has cut one of his BP meds in half (unsure of the name). Patient had a systolic blood pressure of 74 at home when the paramedics arrived to bring him to the emergency department. Patient arrives to the emergency department with intravenous normal saline running and his systolic blood pressure on arrival is 94. He also reports that he has noticed frequency with urination, hematuria, and right flank pain. Patient states that he had stones removed from both right and left ureters last month with Dr. Barahona/[place]. He states that one of his fall was resultant from him slipping on urine after he attempted to edwards to the bathroom to urinate but did not make it in time. Upon arrival to ED, patient was tachycardic and hypotensive. CT scan without contrast of cervical spine shows no acute fracture or subluxation. There is mild bilateral TMJ degenerative changes. CT scan of the head without contrast shows paranasal sinus disease. Remainder of the study is within normal limits. CXR with no acute findings. Left shoulder x-ray no acute fracture or dislocation. Lumbar spine x-ray mild multilevel thoracolumbar degenerative changes without acute fracture or subluxation. Bilateral hip/pelvic x-ray no acute fracture or dislocation. Lab findings remarkable for leukocytosis with WBC at 21.5, macrocytic anemia with hgb at 11.2, hypokalemia at 2.8, hypomagnesemia at 1.3, LIZ with creat at 1.71 (baselin e around 0.87), and BNP at 3030. UA with blood/moderate leukocytes. Patient was given a fluid bolus, rocephin, potassium, and magnesium in ED. Admit for urosepsis/LIZ/hypokalemia/hypomagnesemia. Plan for continued IV abx/IVF, electrolyte replenishment. - Review of Systems Constitutional: Weakness Eyes: No Symptoms Ears, Nose, & Throat: No Symptoms Respiratory: No Symptoms Cardiac: No Symptoms Abdominal/Gastrointestinal: No Symptoms Genitourinary Symptoms: Frequency, Hematuria, Flank Pain (right ) Musculoskeletal: Fall, Joint Pain Skin: No Symptoms Neurological: No Symptoms Psychological: No Symptoms Endocrine: No Symptoms Hematologic/Lymphatic: Anemia Immunological/Allergic: No Symptoms Medications & Allergies Home Medications: Home Medication List Amlodipine Besylate 5 mg [Norvasc 5 mg] 5 mg PO DAILY 01/28/24 [History Confirmed 01/28/24] Atorvastatin Calcium [Lipitor 40Mg] 40 mg PO DAILY 01/28/24 [History Confirmed 01/28/24] Fenofibrate 54 mg PO DAILY 01/28/24 [History Confirmed 01/28/24] Furosemide 20 mg [Lasix 20 mg] 20 mg PO DAILY 01/28/24 [History Confirmed 01/28/24] Gabapentin [Neurontin] 800 mg PO TID 01/28/24 [History Confirmed 01/28/24] Tamsulosin HCl 0.4 mg [Flomax 0.4 MG] 0.4 mg PO DAILY 01/28/24 [History Confirmed 01/28/24] Trazodone HCl 50 mg [Desyrel 50 mg] 50 mg PO HS 01/28/24 [History Confirmed 01/28/24] Vibegron [Gemtesa] 75 mg PO HS 01/28/24 [History Confirmed 01/28/24] Allergies/Adverse Reactions: Allergies Allergy/AdvReac Type Severity Reaction Status Date / Time lisinopril AdvReac Severe Swelling Verified 01/28/24 08:16 of Tongue and Lips bandaid Allergy Mild Rash Uncoded 01/28/24 08:16 - Past Medical History Neurological History: Stroke Cardiac History: Coronary Artery Disease, Hypertension, Myocardial Infarction (NE) History: Other Comment: restless leg sydrome ,incont of urine - Past Surgical History Past Surgical History: Yes Genitourinary Surgical Hx: Other Musculskeletal Surgical Hx: Orthopedic Surgery Other Surgical History: kidney stone, bilat shoulder surgeries, thumb surgery - Social History Smoking Status: Never smoker Exposure to second hand smoke: No Alcohol: None Drug Use: none - Social Determinants of Health Will the patient participate in the screening: Declined to provide - Physical Exam Vital Signs: Vital Signs - 24 hr Temp Pulse Resp BP BP Pulse Ox 01/28/24 13:42 98.0 F 67 18 111/69 94 L 01/28/24 13:00 84 21 105/68 94 L 01/28/24 12:30 78 22 94/63 94 L 01/28/24 11:45 95 H 19 90/57 94 L 01/28/24 11:30 98 H 22 91/58 95 01/28/24 11:16 82 17 102/67 95 01/28/24 11:00 100 H 18 101/57 96 01/28/24 10:45 93 H 21 82/54 96 01/28/24 10:30 96 H 20 87/52 94 L 01/28/24 10:15 85 16 76/55 93 L 01/28/24 10:01 97 01/28/24 10:00 94 H 23 78/49 97 01/28/24 09:45 98 H 22 77/62 98 01/28/24 09:30 91 H 20 73/42 94 L 01/28/24 09:15 100 H 22 73/43 97 01/28/24 09:05 102 H 20 76/45 95 01/28/24 08:30 96 H 21 72/40 93 L 01/28/24 08:18 98.5 F 100 H 22 95/42 94 L 01/28/24 08:13 99 H 23 95/52 92 L General Appearance: no apparent distress Neurologic Exam: alert, oriented x 3, cooperative Eye Exam: PERRL/EOMI Ears, Nose, Throat Exam: normal ENT inspection Neck Exam: normal inspection Respiratory Exam: normal breath sounds, lungs clear Cardiovascular Exam: regular rate/rhythm, normal heart sounds Gastrointestinal/Abdomen Exam: soft Rectal Exam: deferred Back Exam: normal inspection Extremity Exam: normal inspection Skin Exam: normal color Results - Labs Lab/Micro Results: Lab Results-Last 24 Hours 01/28/24 01/28/24 01/28/24 Range/Units 08:30 08:36 08:36 WBC 21.5 H (4.23-9.07) x10^3/uL RBC 3.57 L (4.63-6.08) x10^6/uL Hgb 11.2 L (13.7-17.5) g/dL Hct 34.0 L (40.1-51.0) % MCV 95.2 H (79.0-92.2) fL MCH 31.4 (25.7-32.2) pg MCHC 32.9 (32.3-36.5) g/dL RDW 13.4 (11.6-14.4) % Plt Count 140 L (163-337) x10^3/uL MPV 9.2 L (9.4-12.4) fL Gran % 82.7 H (34.0-67.9) % Immature Gran % (Auto) 0.7 H (0.001-0.429) % Nucleat RBC Rel Count 0.0 (0.00-0.2) % Eos # (Auto) 0 L (0.04-0.54) x10^3/uL Immature Gran # (Auto) 0.15 H (0.001-0.031) x10^3u/L Absolute Lymphs (auto) 0.76 L (1.32-3.57) x10^3/uL Absolute Monos (auto) 2.77 H (0.30-0.82) x10^3/uL Absolute Nucleated RBC 0.00 (0.00-0.012) x10^3u/L Lymphocytes % 3.5 L (21.8-53.1) % Monocytes % 12.9 H (5.3-12.2) % Eosinophils % 0.0 L (0.8-7.0) % Basophils % 0.2 (0.2-1.2) % Absolute Granulocytes 17.76 H (1.78-5.38) x10^3/uL Basophils # 0.04 (0.01-0.08) x10^3/uL Sodium 141 (135-145) mmol/L Potassium 2.8 L* (3.5-5.1) mmol/L Chloride 112 H (98-107) mmol/L Carbon Dioxide 24 (22-30) mmol/L Anion Gap 7.8 (5-15) MEQ/L BUN 16 (9-20) mg/dL Creatinine 1.71 H (0.66-1.25) mg/dL Estimated GFR 43.9 ML/MIN Glucose 108 H (74-106) mg/dL Lactic Acid (0.4-2.0) Calcium 8.3 L (8.4-10.2) mg/dL Magnesium 1.3 L (1.6-2.3) mg/dL Total Bilirubin 0.70 (0.2-1.3) mg/dL AST 26 (17-59) U/L ALT 21 (0-50) U/L Alkaline Phosphatase 69 (38-126) U/L Troponin I (0.000-0.033) ng/mL NT-Pro-B Natriuret Pep 3030 (<300) pg/mL Serum Total Protein 5.4 L (6.3-8.2) g/dL Albumin 2.8 L (3.5-5.0) g/dL Urine Color (Yellow) Urine Appearance (Clear) Urine pH (4.6-8.0) Ur Specific Allen (1.005-1.030) Urine Protein (Negative) Urine Glucose (UA) (Negative) mg/dL Urine Ketones (Negative) Urine Blood (Negative) Urine Nitrite (Negative) Urine Bilirubin (Negative) Urine Urobilinogen (0.2) mg/dL Ur Leukocyte Esterase (Negative) U Hyaline Cast (Auto) (0-2) /LPF Urine Microscopic RBC (0-5) /HPF Urine Microscopic WBC (0-5) /HPF Ur Epithelial Cells (None Seen) /HPF Urine Bacteria (None Seen) /HPF Urine Culture Reflexed (NO) Urine Opiates Level (NEGATIVE) Ur Methadone (NEGATIVE) Urine Barbiturates (NEGATIVE) Ur Phencyclidine (PCP) (NEGATIVE) Urine Amphetamine (NEGATIVE) U Benzodiazepine Level (NEGATIVE) Urine Cocaine (NEGATIVE) Urine Marijuana (THC) (NEGATIVE) Ethyl Alcohol < 10 (0-10) mg/dL Monoscreen NEGATIVE (NEGATIVE) Influenza Type A Ag (NEGATIVE) Influenza Type B Ag (NEGATIVE) RSV (PCR) (NEGATIVE) SARS-CoV-2 (PCR) (NEGATIVE) Group A Strep Antibody (NEGATIVE) Slides for Path Review YES 01/28/24 01/28/24 01/28/24 Range/Units 08:36 10:34 10:34 WBC (4.23-9.07) x10^3/uL RBC (4.63-6.08) x10^6/uL Hgb (13.7-17.5) g/dL Hct (40.1-51.0) % MCV (79.0-92.2) fL MCH (25.7-32.2) pg MCHC (32.3-36.5) g/dL RDW (11.6-14.4) % Plt Count (163-337) x10^3/uL MPV (9.4-12.4) fL Gran % (34.0-67.9) % Immature Gran % (Auto) (0.001-0.429) % Nucleat RBC Rel Count (0.00-0.2) % Eos # (Auto) (0.04-0.54) x10^3/uL Immature Gran # (Auto) (0.001-0.031) x10^3u/L Absolute Lymphs (auto) (1.32-3.57) x10^3/uL Absolute Monos (auto) (0.30-0.82) x10^3/uL Absolute Nucleated RBC (0.00-0.012) x10^3u/L Lymphocytes % (21.8-53.1) % Monocytes % (5.3-12.2) % Eosinophils % (0.8-7.0) % Basophils % (0.2-1.2) % Absolute Granulocytes (1.78-5.38) x10^3/uL Basophils # (0.01-0.08) x10^3/uL Sodium (135-145) mmol/L Potassium (3.5-5.1) mmol/L Chloride (98-107) mmol/L Carbon Dioxide (22-30) mmol/L Anion Gap (5-15) MEQ/L BUN (9-20) mg/dL Creatinine (0.66-1.25) mg/dL Estimated GFR ML/MIN Glucose (74-106) mg/dL Lactic Acid (0.4-2.0) Calcium (8.4-10.2) mg/dL Magnesium (1.6-2.3) mg/dL Total Bilirubin (0.2-1.3) mg/dL AST (17-59) U/L ALT (0-50) U/L Alkaline Phosphatase (38-126) U/L Troponin I 0.033 (0.000-0.033) ng/mL NT-Pro-B Natriuret Pep (<300) pg/mL Serum Total Protein (6.3-8.2) g/dL Albumin (3.5-5.0) g/dL Urine Color Yellow (Yellow) Urine Appearance Cloudy A (Clear) Urine pH 7.0 (4.6-8.0) Ur Specific Allen 1.010 (1.005-1.030) Urine Protein Trace A (Negative) Urine Glucose (UA) Negative (Negative) mg/dL Urine Ketones Negative (Negative) Urine Blood Moderate A (Negative) Urine Nitrite Negative (Negative) Urine Bilirubin Negative (Negative) Urine Urobilinogen 0.2 (0.2) mg/dL Ur Leukocyte Esterase Moderate A (Negative) U Hyaline Cast (Auto) 3-5 A (0-2) /LPF Urine Microscopic RBC 51-100 A (0-5) /HPF Urine Microscopic WBC 51-100 A (0-5) /HPF Ur Epithelial Cells None Seen (None Seen) /HPF Urine Bacteria Many A (None Seen) /HPF Urine Culture Reflexed ORDERED SEPARATELY (NO) Urine Opiates Level NEGATIVE (NEGATIVE) Ur Methadone NEGATIVE (NEGATIVE) Urine Barbiturates NEGATIVE (NEGATIVE) Ur Phencyclidine (PCP) NEGATIVE (NEGATIVE) Urine Amphetamine NEGATIVE (NEGATIVE) U Benzodiazepine Level NEGATIVE (NEGATIVE) Urine Cocaine NEGATIVE (NEGATIVE) Urine Marijuana (THC) NEGATIVE (NEGATIVE) Ethyl Alcohol (0-10) mg/dL Monoscreen (NEGATIVE) Influenza Type A Ag (NEGATIVE) Influenza Type B Ag (NEGATIVE) RSV (PCR) (NEGATIVE) SARS-CoV-2 (PCR) (NEGATIVE) Group A Strep Antibody (NEGATIVE) Slides for Path Review 01/28/24 01/28/24 01/28/24 Range/Units 10:45 11:15 11:50 WBC (4.23-9.07) x10^3/uL RBC (4.63-6.08) x10^6/uL Hgb (13.7-17.5) g/dL Hct (40.1-51.0) % MCV (79.0-92.2) fL MCH (25.7-32.2) pg MCHC (32.3-36.5) g/dL RDW (11.6-14.4) % Plt Count (163-337) x10^3/uL MPV (9.4-12.4) fL Gran % (34.0-67.9) % Immature Gran % (Auto) (0.001-0.429) % Nucleat RBC Rel Count (0.00-0.2) % Eos # (Auto) (0.04-0.54) x10^3/uL Immature Gran # (Auto) (0.001-0.031) x10^3u/L Absolute Lymphs (auto) (1.32-3.57) x10^3/uL Absolute Monos (auto) (0.30-0.82) x10^3/uL Absolute Nucleated RBC (0.00-0.012) x10^3u/L Lymphocytes % (21.8-53.1) % Monocytes % (5.3-12.2) % Eosinophils % (0.8-7.0) % Basophils % (0.2-1.2) % Absolute Granulocytes (1.78-5.38) x10^3/uL Basophils # (0.01-0.08) x10^3/uL Sodium (135-145) mmol/L Potassium (3.5-5.1) mmol/L Chloride (98-107) mmol/L Carbon Dioxide (22-30) mmol/L Anion Gap (5-15) MEQ/L BUN (9-20) mg/dL Creatinine (0.66-1.25) mg/dL Estimated GFR ML/MIN Glucose (74-106) mg/dL Lactic Acid 1.8 (0.4-2.0) Calcium (8.4-10.2) mg/dL Magnesium (1.6-2.3) mg/dL Total Bilirubin (0.2-1.3) mg/dL AST (17-59) U/L ALT (0-50) U/L Alkaline Phosphatase (38-126) U/L Troponin I 0.028 (0.000-0.033) ng/mL NT-Pro-B Natriuret Pep (<300) pg/mL Serum Total Protein (6.3-8.2) g/dL Albumin (3.5-5.0) g/dL Urine Color (Yellow) Urine Appearance (Clear) Urine pH (4.6-8.0) Ur Specific Allen (1.005-1.030) Urine Protein (Negative) Urine Glucose (UA) (Negative) mg/dL Urine Ketones (Negative) Urine Blood (Negative) Urine Nitrite (Negative) Urine Bilirubin (Negative) Urine Urobilinogen (0.2) mg/dL Ur Leukocyte Esterase (Negative) U Hyaline Cast (Auto) (0-2) /LPF Urine Microscopic RBC (0-5) /HPF Urine Microscopic WBC (0-5) /HPF Ur Epithelial Cells (None Seen) /HPF Urine Bacteria (None Seen) /HPF Urine Culture Reflexed (NO) Urine Opiates Level (NEGATIVE) Ur Methadone (NEGATIVE) Urine Barbiturates (NEGATIVE) Ur Phencyclidine (PCP) (NEGATIVE) Urine Amphetamine (NEGATIVE) U Benzodiazepine Level (NEGATIVE) Urine Cocaine (NEGATIVE) Urine Marijuana (THC) (NEGATIVE) Ethyl Alcohol (0-10) mg/dL Monoscreen (NEGATIVE) Influenza Type A Ag (NEGATIVE) Influenza Type B Ag (NEGATIVE) RSV (PCR) (NEGATIVE) SARS-CoV-2 (PCR) (NEGATIVE) Group A Strep Antibody NOT DETECTED (NEGATIVE) Slides for Path Review 01/28/24 Range/Units 11:50 WBC (4.23-9.07) x10^3/uL RBC (4.63-6.08) x10^6/uL Hgb (13.7-17.5) g/dL Hct (40.1-51.0) % MCV (79.0-92.2) fL MCH (25.7-32.2) pg MCHC (32.3-36.5) g/dL RDW (11.6-14.4) % Plt Count (163-337) x10^3/uL MPV (9.4-12.4) fL Gran % (34.0-67.9) % Immature Gran % (Auto) (0.001-0.429) % Nucleat RBC Rel Count (0.00-0.2) % Eos # (Auto) (0.04-0.54) x10^3/uL Immature Gran # (Auto) (0.001-0.031) x10^3u/L Absolute Lymphs (auto) (1.32-3.57) x10^3/uL Absolute Monos (auto) (0.30-0.82) x10^3/uL Absolute Nucleated RBC (0.00-0.012) x10^3u/L Lymphocytes % (21.8-53.1) % Monocytes % (5.3-12.2) % Eosinophils % (0.8-7.0) % Basophils % (0.2-1.2) % Absolute Granulocytes (1.78-5.38) x10^3/uL Basophils # (0.01-0.08) x10^3/uL Sodium (135-145) mmol/L Potassium (3.5-5.1) mmol/L Chloride (98-107) mmol/L Carbon Dioxide (22-30) mmol/L Anion Gap (5-15) MEQ/L BUN (9-20) mg/dL Creatinine (0.66-1.25) mg/dL Estimated GFR ML/MIN Glucose (74-106) mg/dL Lactic Acid (0.4-2.0) Calcium (8.4-10.2) mg/dL Magnesium (1.6-2.3) mg/dL Total Bilirubin (0.2-1.3) mg/dL AST (17-59) U/L ALT (0-50) U/L Alkaline Phosphatase (38-126) U/L Troponin I (0.000-0.033) ng/mL NT-Pro-B Natriuret Pep (<300) pg/mL Serum Total Protein (6.3-8.2) g/dL Albumin (3.5-5.0) g/dL Urine Color (Yellow) Urine Appearance (Clear) Urine pH (4.6-8.0) Ur Specific Allen (1.005-1.030) Urine Protein (Negative) Urine Glucose (UA) (Negative) mg/dL Urine Ketones (Negative) Urine Blood (Negative) Urine Nitrite (Negative) Urine Bilirubin (Negative) Urine Urobilinogen (0.2) mg/dL Ur Leukocyte Esterase (Negative) U Hyaline Cast (Auto) (0-2) /LPF Urine Microscopic RBC (0-5) /HPF Urine Microscopic WBC (0-5) /HPF Ur Epithelial Cells (None Seen) /HPF Urine Bacteria (None Seen) /HPF Urine Culture Reflexed (NO) Urine Opiates Level (NEGATIVE) Ur Methadone (NEGATIVE) Urine Barbiturates (NEGATIVE) Ur Phencyclidine (PCP) (NEGATIVE) Urine Amphetamine (NEGATIVE) U Benzodiazepine Level (NEGATIVE) Urine Cocaine (NEGATIVE) Urine Marijuana (THC) (NEGATIVE) Ethyl Alcohol (0-10) mg/dL Monoscreen (NEGATIVE) Influenza Type A Ag NEGATIVE (NEGATIVE) Influenza Type B Ag NEGATIVE (NEGATIVE) RSV (PCR) NEGATIVE (NEGATIVE) SARS-CoV-2 (PCR) NEGATIVE (NEGATIVE) Group A Strep Antibody (NEGATIVE) Slides for Path Review - Radiology Impressions Radiology Exams & Impressions: Radiology Procedures Category Date Time Status CERVICAL SPINE WO CONTRAST [CT] Stat Exams 01/28/24 08:23 Completed CHEST 1 VIEW (PORTABLE) Stat Exams 01/28/24 10:55 Completed HEAD WITHOUT CONTRAST [CT] Stat Exams 01/28/24 08:23 Completed HIP JOSE ALBERTO (4V) INCL PELV IF DONE Stat Exams 01/28/24 08:24 Completed LUMBAR LIMITED (2 OR 3 VIEWS) Stat Exams 01/28/24 08:24 Completed SHOULDER Stat Exams 01/28/24 08:24 Completed Assessment/Plan (1) Sepsis Current Visit: Yes Status: Acute Assessment & Plan: -meets criteria with tachycardia, hypotension, leukocytosis, UTI, LIZ -severe -WBC at 21.5 on admission -UA suspicious for UTI -LA WNL -Patient given 1L fluid bolus -Ceftriaxone given in ED, will continue with 2g Rocephin -Supplemental oxygen as needed for goal spo2 > 90% -CXR with no acute findings -continue IVF -Strict I&O -Target MAP > 65mmHg -Consider norepinephrine drip if patient remains hypotensive/map<65 -Stress ulcer PPI with protonix (2) UTI (urinary tract infection) Current Visit: Yes Status: Acute Assessment & Plan: -treat with Rocephin empirically- follow cultures Code(s): N39.0 - URINARY TRACT INFECTION, SITE NOT SPECIFIED (3) LIZ (acute kidney injury) Current Visit: Yes Status: Acute Assessment & Plan: -Most likely secondary to infection/hypovolemia -Avoid QUINTON/ARB/Nsaids -IVF -Monitor I&O's -Bladder scan for residual Code(s): N17.9 - ACUTE KIDNEY FAILURE, UNSPECIFIED (4) Fall with no significant injury Current Visit: Yes Status: Acute Assessment & Plan: -CT scan without contrast of cervical spine shows no acute fracture or subluxation. There is mild bilateral TMJ degenerative changes. -CT scan of the head without contrast shows paranasal sinus disease. Remainder of the study is within normal limits -Left shoulder x-ray no acute fracture or dislocation -Lumbar spine x-ray mild multilevel thoracolumbar degenerative changes without acute fracture or subluxation -Bilateral hip/pelvic x-ray no acute fracture or dislocation -Orthostatic vitals -med review -echo -consider -?infective etiology 2/2 to sepsis Code(s): W19.XXXA - UNSPECIFIED FALL, INITIAL ENCOUNTER (5) Hypokalemia Current Visit: Yes Status: Acute Assessment & Plan: -Received 20meq IV in ED, will replenish per protocol -tele Code(s): E87.6 - HYPOKALEMIA (6) Hypomagnesemia Current Visit: Yes Status: Acute Assessment & Plan: -Given 1g in ED - repeat in a.m. Code(s): E83.42 - HYPOMAGNESEMIA (7) Hypotension Current Visit: Yes Status: Acute Assessment & Plan: -stable after fluid resuscitation - hold BP meds for now- continue IVF - see sepsis -med review Code(s): I95.9 - HYPOTENSION, UNSPECIFIED (8) History of kidney stones Current Visit: Yes Status: Acute Assessment & Plan: -recent surgical intervention last month with stones removed from both right and left ureter -Bladder scan -KUB Code(s): Z87.442 - PERSONAL HISTORY OF URINARY CALCULI Telemedicine Encounter - Telemedicine Encounter Telemedicine Encounter: "The entirety of this encounter was performed via Telemedicine" This visit was performed using real-time audio and video connection between my location and thepatients locationwith the assistance of a surrogateat the patients location. Written or verbal consent was obtained from the patient/guardian to perform this visit [facility] technology. Any patient questions regarding the telemedicine interaction were answered. <BIANCA MANE - Last Filed: 01/28/24 18:42> History of Present Illness - Chief Complaint History of Present Illness: Mr.MCMULLEN BRYSON is a 63 year old male. - Physical Exam Vital Signs: Vital Signs - 24 hr Temp Pulse Resp BP BP Pulse Ox 01/28/24 16:00 98.0 F 71 18 150/76 95 01/28/24 14:55 98.0 F 67 18 111/69 94 L 01/28/24 14:24 94 L 01/28/24 13:42 98.0 F 67 18 111/69 94 L 01/28/24 13:00 84 21 105/68 94 L 01/28/24 12:30 78 22 94/63 94 L 01/28/24 11:45 95 H 19 90/57 94 L 01/28/24 11:30 98 H 22 91/58 95 01/28/24 11:16 82 17 102/67 95 01/28/24 11:00 100 H 18 101/57 96 01/28/24 10:45 93 H 21 82/54 96 01/28/24 10:30 96 H 20 87/52 94 L 01/28/24 10:15 85 16 76/55 93 L 01/28/24 10:01 97 01/28/24 10:00 94 H 23 78/49 97 01/28/24 09:45 98 H 22 77/62 98 01/28/24 09:30 91 H 20 73/42 94 L 01/28/24 09:15 100 H 22 73/43 97 01/28/24 09:05 102 H 20 76/45 95 01/28/24 08:30 96 H 21 72/40 93 L 01/28/24 08:18 98.5 F 100 H 22 95/42 94 L 01/28/24 08:13 99 H 23 95/52 92 L Results - Labs Lab/Micro Results: Lab Results-Last 24 Hours 01/28/24 01/28/24 01/28/24 Range/Units 08:30 08:36 08:36 WBC 21.5 H (4.23-9.07) x10^3/uL RBC 3.57 L (4.63-6.08) x10^6/uL Hgb 11.2 L (13.7-17.5) g/dL Hct 34.0 L (40.1-51.0) % MCV 95.2 H (79.0-92.2) fL MCH 31.4 (25.7-32.2) pg MCHC 32.9 (32.3-36.5) g/dL RDW 13.4 (11.6-14.4) % Plt Count 140 L (163-337) x10^3/uL MPV 9.2 L (9.4-12.4) fL Gran % 82.7 H (34.0-67.9) % Immature Gran % (Auto) 0.7 H (0.001-0.429) % Nucleat RBC Rel Count 0.0 (0.00-0.2) % Eos # (Auto) 0 L (0.04-0.54) x10^3/uL Immature Gran # (Auto) 0.15 H (0.001-0.031) x10^3u/L Absolute Lymphs (auto) 0.76 L (1.32-3.57) x10^3/uL Absolute Monos (auto) 2.77 H (0.30-0.82) x10^3/uL Absolute Nucleated RBC 0.00 (0.00-0.012) x10^3u/L Lymphocytes % 3.5 L (21.8-53.1) % Monocytes % 12.9 H (5.3-12.2) % Eosinophils % 0.0 L (0.8-7.0) % Basophils % 0.2 (0.2-1.2) % Absolute Granulocytes 17.76 H (1.78-5.38) x10^3/uL Basophils # 0.04 (0.01-0.08) x10^3/uL Sodium 141 (135-145) mmol/L Potassium 2.8 L* (3.5-5.1) mmol/L Chloride 112 H (98-107) mmol/L Carbon Dioxide 24 (22-30) mmol/L Anion Gap 7.8 (5-15) MEQ/L BUN 16 (9-20) mg/dL Creatinine 1.71 H (0.66-1.25) mg/dL Estimated GFR 43.9 ML/MIN Glucose 108 H (74-106) mg/dL Lactic Acid (0.4-2.0) Calcium 8.3 L (8.4-10.2) mg/dL Magnesium 1.3 L (1.6-2.3) mg/dL Total Bilirubin 0.70 (0.2-1.3) mg/dL AST 26 (17-59) U/L ALT 21 (0-50) U/L Alkaline Phosphatase 69 (38-126) U/L Troponin I (0.000-0.033) ng/mL NT-Pro-B Natriuret Pep 3030 (<300) pg/mL Serum Total Protein 5.4 L (6.3-8.2) g/dL Albumin 2.8 L (3.5-5.0) g/dL Prealbumin (17.6-36.0) mg/dL Urine Color (Yellow) Urine Appearance (Clear) Urine pH (4.6-8.0) Ur Specific Allen (1.005-1.030) Urine Protein (Negative) Urine Glucose (UA) (Negative) mg/dL Urine Ketones (Negative) Urine Blood (Negative) Urine Nitrite (Negative) Urine Bilirubin (Negative) Urine Urobilinogen (0.2) mg/dL Ur Leukocyte Esterase (Negative) U Hyaline Cast (Auto) (0-2) /LPF Urine Microscopic RBC (0-5) /HPF Urine Microscopic WBC (0-5) /HPF Ur Epithelial Cells (None Seen) /HPF Urine Bacteria (None Seen) /HPF Urine Culture Reflexed (NO) Urine Opiates Level (NEGATIVE) Ur Methadone (NEGATIVE) Urine Barbiturates (NEGATIVE) Ur Phencyclidine (PCP) (NEGATIVE) Urine Amphetamine (NEGATIVE) U Benzodiazepine Level (NEGATIVE) Urine Cocaine (NEGATIVE) Urine Marijuana (THC) (NEGATIVE) Ethyl Alcohol < 10 (0-10) mg/dL Monoscreen NEGATIVE (NEGATIVE) Influenza Type A Ag (NEGATIVE) Influenza Type B Ag (NEGATIVE) RSV (PCR) (NEGATIVE) SARS-CoV-2 (PCR) (NEGATIVE) Group A Strep Antibody (NEGATIVE) Slides for Path Review YES 01/28/24 01/28/24 01/28/24 Range/Units 08:36 10:34 10:34 WBC (4.23-9.07) x10^3/uL RBC (4.63-6.08) x10^6/uL Hgb (13.7-17.5) g/dL Hct (40.1-51.0) % MCV (79.0-92.2) fL MCH (25.7-32.2) pg MCHC (32.3-36.5) g/dL RDW (11.6-14.4) % Plt Count (163-337) x10^3/uL MPV (9.4-12.4) fL Gran % (34.0-67.9) % Immature Gran % (Auto) (0.001-0.429) % Nucleat RBC Rel Count (0.00-0.2) % Eos # (Auto) (0.04-0.54) x10^3/uL Immature Gran # (Auto) (0.001-0.031) x10^3u/L Absolute Lymphs (auto) (1.32-3.57) x10^3/uL Absolute Monos (auto) (0.30-0.82) x10^3/uL Absolute Nucleated RBC (0.00-0.012) x10^3u/L Lymphocytes % (21.8-53.1) % Monocytes % (5.3-12.2) % Eosinophils % (0.8-7.0) % Basophils % (0.2-1.2) % Absolute Granulocytes (1.78-5.38) x10^3/uL Basophils # (0.01-0.08) x10^3/uL Sodium (135-145) mmol/L Potassium (3.5-5.1) mmol/L Chloride (98-107) mmol/L Carbon Dioxide (22-30) mmol/L Anion Gap (5-15) MEQ/L BUN (9-20) mg/dL Creatinine (0.66-1.25) mg/dL Estimated GFR ML/MIN Glucose (74-106) mg/dL Lactic Acid (0.4-2.0) Calcium (8.4-10.2) mg/dL Magnesium (1.6-2.3) mg/dL Total Bilirubin (0.2-1.3) mg/dL AST (17-59) U/L ALT (0-50) U/L Alkaline Phosphatase (38-126) U/L Troponin I 0.033 (0.000-0.033) ng/mL NT-Pro-B Natriuret Pep (<300) pg/mL Serum Total Protein (6.3-8.2) g/dL Albumin (3.5-5.0) g/dL Prealbumin (17.6-36.0) mg/dL Urine Color Yellow (Yellow) Urine Appearance Cloudy A (Clear) Urine pH 7.0 (4.6-8.0) Ur Specific Allen 1.010 (1.005-1.030) Urine Protein Trace A (Negative) Urine Glucose (UA) Negative (Negative) mg/dL Urine Ketones Negative (Negative) Urine Blood Moderate A (Negative) Urine Nitrite Negative (Negative) Urine Bilirubin Negative (Negative) Urine Urobilinogen 0.2 (0.2) mg/dL Ur Leukocyte Esterase Moderate A (Negative) U Hyaline Cast (Auto) 3-5 A (0-2) /LPF Urine Microscopic RBC 51-100 A (0-5) /HPF Urine Microscopic WBC 51-100 A (0-5) /HPF Ur Epithelial Cells None Seen (None Seen) /HPF Urine Bacteria Many A (None Seen) /HPF Urine Culture Reflexed ORDERED SEPARATELY (NO) Urine Opiates Level NEGATIVE (NEGATIVE) Ur Methadone NEGATIVE (NEGATIVE) Urine Barbiturates NEGATIVE (NEGATIVE) Ur Phencyclidine (PCP) NEGATIVE (NEGATIVE) Urine Amphetamine NEGATIVE (NEGATIVE) U Benzodiazepine Level NEGATIVE (NEGATIVE) Urine Cocaine NEGATIVE (NEGATIVE) Urine Marijuana (THC) NEGATIVE (NEGATIVE) Ethyl Alcohol (0-10) mg/dL Monoscreen (NEGATIVE) Influenza Type A Ag (NEGATIVE) Influenza Type B Ag (NEGATIVE) RSV (PCR) (NEGATIVE) SARS-CoV-2 (PCR) (NEGATIVE) Group A Strep Antibody (NEGATIVE) Slides for Path Review 01/28/24 01/28/24 01/28/24 Range/Units 10:45 11:15 11:50 WBC (4.23-9.07) x10^3/uL RBC (4.63-6.08) x10^6/uL Hgb (13.7-17.5) g/dL Hct (40.1-51.0) % MCV (79.0-92.2) fL MCH (25.7-32.2) pg MCHC (32.3-36.5) g/dL RDW (11.6-14.4) % Plt Count (163-337) x10^3/uL MPV (9.4-12.4) fL Gran % (34.0-67.9) % Immature Gran % (Auto) (0.001-0.429) % Nucleat RBC Rel Count (0.00-0.2) % Eos # (Auto) (0.04-0.54) x10^3/uL Immature Gran # (Auto) (0.001-0.031) x10^3u/L Absolute Lymphs (auto) (1.32-3.57) x10^3/uL Absolute Monos (auto) (0.30-0.82) x10^3/uL Absolute Nucleated RBC (0.00-0.012) x10^3u/L Lymphocytes % (21.8-53.1) % Monocytes % (5.3-12.2) % Eosinophils % (0.8-7.0) % Basophils % (0.2-1.2) % Absolute Granulocytes (1.78-5.38) x10^3/uL Basophils # (0.01-0.08) x10^3/uL Sodium (135-145) mmol/L Potassium (3.5-5.1) mmol/L Chloride (98-107) mmol/L Carbon Dioxide (22-30) mmol/L Anion Gap (5-15) MEQ/L BUN (9-20) mg/dL Creatinine (0.66-1.25) mg/dL Estimated GFR ML/MIN Glucose (74-106) mg/dL Lactic Acid 1.8 (0.4-2.0) Calcium (8.4-10.2) mg/dL Magnesium (1.6-2.3) mg/dL Total Bilirubin (0.2-1.3) mg/dL AST (17-59) U/L ALT (0-50) U/L Alkaline Phosphatase (38-126) U/L Troponin I 0.028 (0.000-0.033) ng/mL NT-Pro-B Natriuret Pep (<300) pg/mL Serum Total Protein (6.3-8.2) g/dL Albumin (3.5-5.0) g/dL Prealbumin (17.6-36.0) mg/dL Urine Color (Yellow) Urine Appearance (Clear) Urine pH (4.6-8.0) Ur Specific Allen (1.005-1.030) Urine Protein (Negative) Urine Glucose (UA) (Negative) mg/dL Urine Ketones (Negative) Urine Blood (Negative) Urine Nitrite (Negative) Urine Bilirubin (Negative) Urine Urobilinogen (0.2) mg/dL Ur Leukocyte Esterase (Negative) U Hyaline Cast (Auto) (0-2) /LPF Urine Microscopic RBC (0-5) /HPF Urine Microscopic WBC (0-5) /HPF Ur Epithelial Cells (None Seen) /HPF Urine Bacteria (None Seen) /HPF Urine Culture Reflexed (NO) Urine Opiates Level (NEGATIVE) Ur Methadone (NEGATIVE) Urine Barbiturates (NEGATIVE) Ur Phencyclidine (PCP) (NEGATIVE) Urine Amphetamine (NEGATIVE) U Benzodiazepine Level (NEGATIVE) Urine Cocaine (NEGATIVE) Urine Marijuana (THC) (NEGATIVE) Ethyl Alcohol (0-10) mg/dL Monoscreen (NEGATIVE) Influenza Type A Ag (NEGATIVE) Influenza Type B Ag (NEGATIVE) RSV (PCR) (NEGATIVE) SARS-CoV-2 (PCR) (NEGATIVE) Group A Strep Antibody NOT DETECTED (NEGATIVE) Slides for Path Review 01/28/24 01/28/24 01/28/24 Range/Units 11:50 15:48 15:48 WBC (4.23-9.07) x10^3/uL RBC (4.63-6.08) x10^6/uL Hgb (13.7-17.5) g/dL Hct (40.1-51.0) % MCV (79.0-92.2) fL MCH (25.7-32.2) pg MCHC (32.3-36.5) g/dL RDW (11.6-14.4) % Plt Count (163-337) x10^3/uL MPV (9.4-12.4) fL Gran % (34.0-67.9) % Immature Gran % (Auto) (0.001-0.429) % Nucleat RBC Rel Count (0.00-0.2) % Eos # (Auto) (0.04-0.54) x10^3/uL Immature Gran # (Auto) (0.001-0.031) x10^3u/L Absolute Lymphs (auto) (1.32-3.57) x10^3/uL Absolute Monos (auto) (0.30-0.82) x10^3/uL Absolute Nucleated RBC (0.00-0.012) x10^3u/L Lymphocytes % (21.8-53.1) % Monocytes % (5.3-12.2) % Eosinophils % (0.8-7.0) % Basophils % (0.2-1.2) % Absolute Granulocytes (1.78-5.38) x10^3/uL Basophils # (0.01-0.08) x10^3/uL Sodium (135-145) mmol/L Potassium 3.9 D (3.5-5.1) mmol/L Chloride (98-107) mmol/L Carbon Dioxide (22-30) mmol/L Anion Gap (5-15) MEQ/L BUN (9-20) mg/dL Creatinine (0.66-1.25) mg/dL Estimated GFR ML/MIN Glucose (74-106) mg/dL Lactic Acid (0.4-2.0) Calcium (8.4-10.2) mg/dL Magnesium (1.6-2.3) mg/dL Total Bilirubin (0.2-1.3) mg/dL AST (17-59) U/L ALT (0-50) U/L Alkaline Phosphatase (38-126) U/L Troponin I 0.026 (0.000-0.033) ng/mL NT-Pro-B Natriuret Pep (<300) pg/mL Serum Total Protein (6.3-8.2) g/dL Albumin (3.5-5.0) g/dL Prealbumin (17.6-36.0) mg/dL Urine Color (Yellow) Urine Appearance (Clear) Urine pH (4.6-8.0) Ur Specific Allen (1.005-1.030) Urine Protein (Negative) Urine Glucose (UA) (Negative) mg/dL Urine Ketones (Negative) Urine Blood (Negative) Urine Nitrite (Negative) Urine Bilirubin (Negative) Urine Urobilinogen (0.2) mg/dL Ur Leukocyte Esterase (Negative) U Hyaline Cast (Auto) (0-2) /LPF Urine Microscopic RBC (0-5) /HPF Urine Microscopic WBC (0-5) /HPF Ur Epithelial Cells (None Seen) /HPF Urine Bacteria (None Seen) /HPF Urine Culture Reflexed (NO) Urine Opiates Level (NEGATIVE) Ur Methadone (NEGATIVE) Urine Barbiturates (NEGATIVE) Ur Phencyclidine (PCP) (NEGATIVE) Urine Amphetamine (NEGATIVE) U Benzodiazepine Level (NEGATIVE) Urine Cocaine (NEGATIVE) Urine Marijuana (THC) (NEGATIVE) Ethyl Alcohol (0-10) mg/dL Monoscreen (NEGATIVE) Influenza Type A Ag NEGATIVE (NEGATIVE) Influenza Type B Ag NEGATIVE (NEGATIVE) RSV (PCR) NEGATIVE (NEGATIVE) SARS-CoV-2 (PCR) NEGATIVE (NEGATIVE) Group A Strep Antibody (NEGATIVE) Slides for Path Review 01/28/24 Range/Units 15:48 WBC (4.23-9.07) x10^3/uL RBC (4.63-6.08) x10^6/uL Hgb (13.7-17.5) g/dL Hct (40.1-51.0) % MCV (79.0-92.2) fL MCH (25.7-32.2) pg MCHC (32.3-36.5) g/dL RDW (11.6-14.4) % Plt Count (163-337) x10^3/uL MPV (9.4-12.4) fL Gran % (34.0-67.9) % Immature Gran % (Auto) (0.001-0.429) % Nucleat RBC Rel Count (0.00-0.2) % Eos # (Auto) (0.04-0.54) x10^3/uL Immature Gran # (Auto) (0.001-0.031) x10^3u/L Absolute Lymphs (auto) (1.32-3.57) x10^3/uL Absolute Monos (auto) (0.30-0.82) x10^3/uL Absolute Nucleated RBC (0.00-0.012) x10^3u/L Lymphocytes % (21.8-53.1) % Monocytes % (5.3-12.2) % Eosinophils % (0.8-7.0) % Basophils % (0.2-1.2) % Absolute Granulocytes (1.78-5.38) x10^3/uL Basophils # (0.01-0.08) x10^3/uL Sodium (135-145) mmol/L Potassium (3.5-5.1) mmol/L Chloride (98-107) mmol/L Carbon Dioxide (22-30) mmol/L Anion Gap (5-15) MEQ/L BUN (9-20) mg/dL Creatinine (0.66-1.25) mg/dL Estimated GFR ML/MIN Glucose (74-106) mg/dL Lactic Acid (0.4-2.0) Calcium (8.4-10.2) mg/dL Magnesium (1.6-2.3) mg/dL Total Bilirubin (0.2-1.3) mg/dL AST (17-59) U/L ALT (0-50) U/L Alkaline Phosphatase (38-126) U/L Troponin I (0.000-0.033) ng/mL NT-Pro-B Natriuret Pep (<300) pg/mL Serum Total Protein (6.3-8.2) g/dL Albumin (3.5-5.0) g/dL Prealbumin 20.16 (17.6-36.0) mg/dL Urine Color (Yellow) Urine Appearance (Clear) Urine pH (4.6-8.0) Ur Specific Allen (1.005-1.030) Urine Protein (Negative) Urine Glucose (UA) (Negative) mg/dL Urine Ketones (Negative) Urine Blood (Negative) Urine Nitrite (Negative) Urine Bilirubin (Negative) Urine Urobilinogen (0.2) mg/dL Ur Leukocyte Esterase (Negative) U Hyaline Cast (Auto) (0-2) /LPF Urine Microscopic RBC (0-5) /HPF Urine Microscopic WBC (0-5) /HPF Ur Epithelial Cells (None Seen) /HPF Urine Bacteria (None Seen) /HPF Urine Culture Reflexed (NO) Urine Opiates Level (NEGATIVE) Ur Methadone (NEGATIVE) Urine Barbiturates (NEGATIVE) Ur Phencyclidine (PCP) (NEGATIVE) Urine Amphetamine (NEGATIVE) U Benzodiazepine Level (NEGATIVE) Urine Cocaine (NEGATIVE) Urine Marijuana (THC) (NEGATIVE) Ethyl Alcohol (0-10) mg/dL Monoscreen (NEGATIVE) Influenza Type A Ag (NEGATIVE) Influenza Type B Ag (NEGATIVE) RSV (PCR) (NEGATIVE) SARS-CoV-2 (PCR) (NEGATIVE) Group A Strep Antibody (NEGATIVE) Slides for Path Review - Radiology Impressions Radiology Exams & Impressions: Radiology Procedures Category Date Time Status ABDOMEN AND PELVIS W/0 CONTRAS [CT] Urgent Exams 01/28/24 18:07 Ordered CERVICAL SPINE WO CONTRAST [CT] Stat Exams 01/28/24 08:23 Completed CHEST 1 VIEW (PORTABLE) Stat Exams 01/28/24 10:55 Completed HEAD WITHOUT CONTRAST [CT] Stat Exams 01/28/24 08:23 Completed HIP JOSE ALBERTO (4V) INCL PELV IF DONE Stat Exams 01/28/24 08:24 Completed KUB Routine Exams 01/28/24 15:03 Completed LUMBAR LIMITED (2 OR 3 VIEWS) Stat Exams 01/28/24 08:24 Completed SHOULDER Stat Exams 01/28/24 08:24 Completed Telemedicine Encounter - Telemedicine Encounter Telemedicine Encounter: "The entirety of this encounter was performed via Telemedicine" This visit was performed using real-time audio and video connection between my location and thepatients locationwith the assistance of a surrogateat the patients location. Written or verbal consent was obtained from the patient/guardian to perform this visit using[employer] technology. Any patient questions regarding the telemedicine interaction were answered. KAREN Encounter - KAREN Encounter Attestation KAREN Encounter Attestation: "IhavepersonallyseenandexJeronimo BRYSON,ARNEL SCHWARTZ andhavediscussed pertinent aspects of their care with Ijeoma Aranda agree with the history, physical exam (any modifications based on my personal exam will be noted below), assessment, and plan as outlined in original note. Please see immediately below for my summary of findings and additional assessment and plan along with any meaningful corrections/explanations to the Subjective/Objective portions of the KAREN note will be noted." My portion of the encounter took place via telemedicine. -Patient admitted with sepsis secondary to UTI. Reports cystoscopy with bilateral stone extraction about a month ago. In addition to urinary symptoms he also has central mid back pain and left groin/scrotal pain (no significant scrotal swelling on exam). KUB shows bilateral small stones but will obtain CT to further evaluate stones, r/o urinary obstruction and abscess (unfortunately non contrast CT due to LIZ). Continue IV ceftriaxone and IV fluids. Hypotension has resolved s/p fluid resuscitation.
[2024-01-28] MEDS ORDERED: Zofran 4 MG/2 ML VIAL IV PRN (15:03)
--- NOTE | 2024-01-28 16:30 | XRAY ---
Indication: Flank pain. History kidney stones. Comparison: None KUB demonstrates nonspecific nonobstructed bowel gas pattern with a few bilateral renal micro-calculi, largest left lower pole measuring 6-7 mm. 6 x 9 mm right pelvic inlet ureteral calculus versus phlebolith. CT may yield further information if clinically warranted. No other bony, articular, or soft tissue abnormalities.
[2024-01-28] MEDS: PROTONIX 40 MG IV IV SCH (17:19)
[2024-01-28] MEDS ORDERED: MEDICATION INTERVENTION MC SCH (17:30)
[2024-01-28] MEDS: NORCO 5/325 MG PO PRN (19:47)
[2024-01-28] MEDS: Neurontin PO SCH (21:03)
[2024-01-28] MEDS: MEDICATION INTERVENTION MC SCH (21:05)
[2024-01-28] MEDS ORDERED: NON-FORMULARY ITEM (Gabapentin [Neurontin] 800 MG Tablet) PO SCH (22:00)
[2024-01-28] MEDS ORDERED: NON-FORMULARY ITEM (Vibegron [Gemtesa] 75 MG Tablet) PO SCH (22:00)
[2024-01-29] MEDS: Sodium Chloride 0.9% 1000 ML 1,000 ML IV SCH (02:14)
[2024-01-29 04:25] LABS: Absolute Neutrophil Ct (ANC) 15.18 x10^3/uL (1.78-5.38); BASOPHIL % 0.2 % (0.2-1.2); Basophil (Absolute #) 0.04 x10^3/uL (0.01-0.08); Eosinophil % 0.1 % (0.8-7.0); Eosinophil (Absolute #) 0.02 x10^3/uL (0.04-0.54); Hematocrit 34.1 % (40.1-51.0); Hemoglobin 11.2 g/dL (13.7-17.5); IMMATURE GRAN # 0.12 x10^3u/L (0.001-0.031); IMMATURE GRAN % 0.7 % (0.001-0.429); Lymphocyte (Absolute #) 0.98 x10^3/uL (1.32-3.57); Lymphocytes % 5.5 % (21.8-53.1); Mean Cell Volume 95.3 fL (79.0-92.2); Mean Corpuscular Hemoglobin 31.3 pg (25.7-32.2); Mean Corpuscular Hgb Concent. 32.8 g/dL (32.3-36.5); Monocyte (Absolute #) 1.37 x10^3/uL (0.30-0.82); Monocytes % 7.7 % (5.3-12.2); Neutrophil % 85.8 % (34.0-67.9); Platelet Count 141 x10^3/uL (163-337); Red Blood Count 3.58 x10^6/uL (4.63-6.08); Red Cell Distribution Width 14.2 % (11.6-14.4); White Blood Count 17.7 x10^3/uL (4.23-9.07)
[2024-01-29 04:45] LABS: ALBUMIN 3.1 g/dL (3.5-5.0); ANION GAP 7.7 MEQ/L (5-15); BILIRUBIN,TOTAL 0.7 mg/dL (0.2-1.3); Calcium 8.3 mg/dL (8.4-10.2); Creatinine 1 1.2 mg/dL (0.66-1.25); EST GLOMERULAR FILTRATION RATE 67.1 ML/MIN; Potassium 3.5 mmol/L (3.5-5.1); Total Protein 6.1 g/dL (6.3-8.2)
--- NOTE | 2024-01-29 05:33 | PCM.NOTE ---
Date and Time: 01/29/24 0528 Subjective Assessment: HPI: Mr.MCMULLEN BRYSON is a 63 year old male with a pmhx of kidney stones, [place], CAD, Stroke, HTN, and MT who presented to ED 01/28/24 after experiencing several (7 x per pt report) falls at home. He reports that he has had ongoing hypotension and has been worked up OP by his PCP who has cut one of his BP meds in half (unsure of the name). Patient had a systolic blood pressure of 74 at home when the paramedics arrived to bring him to the emergency department. Patient arrives to the emergency department with intravenous normal saline running and his systolic blood pressure on arrival is 94. He also reports that he has noticed frequency with urination, hematuria, and right flank pain. Patient states that he had stones removed from both right and left ureters last month with Dr. Barahona/[place]. He states that one of his fall was resultant from him slipping on urine after he attempted to edwards to the bathroom to urinate but did not make it in time. Upon arrival to ED, patient was tachycardic and hypotensive. CT scan without contrast of cervical spine shows no acute fracture or subluxation. There is mild bilateral TMJ degenerative changes. CT scan of the head without contrast shows paranasal sinus disease. Remainder of the study is within normal limits. CXR with no acute findings. Left shoulder x-ray no acute fracture or dislocation. Lumbar spine x-ray mild multilevel thoracolumbar degenerative changes without acute fracture or subluxation. Bilateral hip/pelvic x-ray no acute fracture or dislocation. KUB showing bilateral renal micro-calculi, largest left lower pole measuring 6-7 mm. 6 x9 mm right pelvic inlet ureteral calculus versus phlebolith. CT remarkable for 5-6 mm distal left ureteral calculus producing partial obstruction. Lab findings remarkableleukocytosis with WBC at 21.5, macrocytic anemia with hgb at 11.2, hypokalemia at 2.8, hypomagnesemia at 1.3, LIZ with creat at 1.71 (baseline around 0.87), and BNP at 3030. UA with blood/moderate leukocytes. Patient was given a fluid bolus, rocephin, potassium, and magnesium in ED. Admit for urosepsis/LIZ /hypokalemia/hypomagnesemia. PVR with minimal residual. 9/17/24: Met with patient bedside. No further episodes of hypotension overnight. Of note, RN reported that patient's brother called stating that patient does not take his medications correctly (over doses/takes meds with NyQuil) and has had several similar episodes of falling due to this. Discussed implications with patient who states he takes his medications as prescribed. Labs improving. LIZ and electrolyte deficiencies have resolved. WBC trending down. Urine and blood cultures are pending. CT remarkable for 5-6 mm distal left ureteral calculus producing partial obstruction. - Review of Systems Constitutional: No Symptoms Eyes: No Symptoms Ears, Nose, & Throat: No Symptoms Respiratory: No Symptoms Cardiac: No Symptoms Genitourinary Symptoms: Frequency, Hematuria, Flank Pain Musculoskeletal: Joint Pain (left shoulder ) Skin: No Symptoms Neurological: No Symptoms Psychological: No Symptoms Endocrine: No Symptoms Hematologic/Lymphatic: No Symptoms Immunological/Allergic: No Symptoms Objective Exam General Appearance: no apparent distress Neurologic Exam: alert, oriented x 3, cooperative Skin Exam: normal color Wound Assessment: Skin/Wound Assessment Wound/Incision Assessment Start: 01/28/24 15: 19 Text: Status: Active Freq: Q6H Protocol: Document 01/29/24 02:00 LEROY (Rec: 01/29/24 02:23 LEROY [id number]) Wound/Incision Assessment Anterior Face Wound Assessment Shift Assessment Wound Type Abrasion Wound Stage Non Pressure Wound Drainage Amount None Comment VISABLE KNOT NOTED ABOVE RIGHT UPPER EYE FROM FALL AT HOME Left Elbow Wound Assessment Shift Assessment Wound Type Abrasion Wound Stage Non Pressure Wound Drainage Amount None Posterior Shoulder Wound Assessment Shift Assessment Wound Type Abrasion Wound Stage Non Pressure Wound Drainage Amount None Eye Exam: PERRL Ears, Nose, Throat Exam: normal ENT inspection Neck Exam: normal inspection Respiratory Exam: normal breath sounds, lungs clear Cardiovascular Exam: regular rate/rhythm, normal heart sounds Gastrointestinal/Abdomen Exam: soft, normal bowel sounds Extremity Exam: normal inspection Back Exam: normal inspection Male Genitalia Exam: deferred Rectal Exam: deferred Objective Data Vital Signs: Vital Signs - 24 hr Temp Pulse Resp BP BP Pulse Ox 01/29/24 04:00 97.2 F 88 16 141/71 90 L 01/28/24 23:11 97.9 F 75 16 130/67 91 L 01/28/24 19:19 98.4 F 71 16 130/70 95 01/28/24 16:00 98.0 F 71 18 150/76 95 01/28/24 14:55 98.0 F 67 18 111/69 94 L 01/28/24 14:24 94 L 01/28/24 13:42 98.0 F 67 18 111/69 94 L 01/28/24 13:00 84 21 105/68 94 L 01/28/24 12:30 78 22 94/63 94 L 01/28/24 11:45 95 H 19 90/57 94 L 01/28/24 11:30 98 H 22 91/58 95 01/28/24 11:16 82 17 102/67 95 01/28/24 11:00 100 H 18 101/57 96 01/28/24 10:45 93 H 21 82/54 96 01/28/24 10:30 96 H 20 87/52 94 L 01/28/24 10:15 85 16 76/55 93 L 01/28/24 10:01 97 01/28/24 10:00 94 H 23 78/49 97 01/28/24 09:45 98 H 22 77/62 98 01/28/24 09:30 91 H 20 73/42 94 L 01/28/24 09:15 100 H 22 73/43 97 01/28/24 09:05 102 H 20 76/45 95 01/28/24 08:30 96 H 21 72/40 93 L 01/28/24 08:18 98.5 F 100 H 22 95/42 94 L 01/28/24 08:13 99 H 23 95/52 92 L Pain Assessment - Last Documented Pain Intensity 3 Pain Scale Used 0-10 Pain Scale Intake and Output: Intake & Output 01/26/24 01/27/24 01/28/24 01/29/24 11:59 11:59 11:59 11:59 Intake Total 120 Output Total 1255 Balance -1135 Weight 97.5 kg 98.3 kg Lab Results: Lab Results-Last 24 Hours 01/28/24 01/28/24 01/28/24 Range/Units 08:30 08:36 08:36 WBC 21.5 H (4.23-9.07) x10^3/uL RBC 3.57 L (4.63-6.08) x10^6/uL Hgb 11.2 L (13.7-17.5) g/dL Hct 34.0 L (40.1-51.0) % MCV 95.2 H (79.0-92.2) fL MCH 31.4 (25.7-32.2) pg MCHC 32.9 (32.3-36.5) g/dL RDW 13.4 (11.6-14.4) % Plt Count 140 L (163-337) x10^3/uL MPV 9.2 L (9.4-12.4) fL Gran % 82.7 H (34.0-67.9) % Immature Gran % (Auto) 0.7 H (0.001-0.429) % Nucleat RBC Rel Count 0.0 (0.00-0.2) % Eos # (Auto) 0 L (0.04-0.54) x10^3/uL Immature Gran # (Auto) 0.15 H (0.001-0.031) x10^3u/L Absolute Lymphs (auto) 0.76 L (1.32-3.57) x10^3/uL Absolute Monos (auto) 2.77 H (0.30-0.82) x10^3/uL Absolute Nucleated RBC 0.00 (0.00-0.012) x10^3u/L Lymphocytes % 3.5 L (21.8-53.1) % Monocytes % 12.9 H (5.3-12.2) % Eosinophils % 0.0 L (0.8-7.0) % Basophils % 0.2 (0.2-1.2) % Absolute Granulocytes 17.76 H (1.78-5.38) x10^3/uL Basophils # 0.04 (0.01-0.08) x10^3/uL Sodium 141 (135-145) mmol/L Potassium 2.8 L* (3.5-5.1) mmol/L Chloride 112 H (98-107) mmol/L Carbon Dioxide 24 (22-30) mmol/L Anion Gap 7.8 (5-15) MEQ/L BUN 16 (9-20) mg/dL Creatinine 1.71 H (0.66-1.25) mg/dL Estimated GFR 43.9 ML/MIN Glucose 108 H (74-106) mg/dL Lactic Acid (0.4-2.0) Calcium 8.3 L (8.4-10.2) mg/dL Magnesium 1.3 L (1.6-2.3) mg/dL Total Bilirubin 0.70 (0.2-1.3) mg/dL AST 26 (17-59) U/L ALT 21 (0-50) U/L Alkaline Phosphatase 69 (38-126) U/L Troponin I (0.000-0.033) ng/mL NT-Pro-B Natriuret Pep 3030 (<300) pg/mL Serum Total Protein 5.4 L (6.3-8.2) g/dL Albumin 2.8 L (3.5-5.0) g/dL Prealbumin (17.6-36.0) mg/dL Urine Color (Yellow) Urine Appearance (Clear) Urine pH (4.6-8.0) Ur Specific [place] (1.005-1.030) Urine Protein (Negative) Urine Glucose (UA) (Negative) mg/dL Urine Ketones (Negative) Urine Blood (Negative) Urine Nitrite (Negative) Urine Bilirubin (Negative) Urine Urobilinogen (0.2) mg/dL Ur Leukocyte Esterase (Negative) U Hyaline Cast (Auto) (0-2) /LPF Urine Microscopic RBC (0-5) /HPF Urine Microscopic WBC (0-5) /HPF Ur Epithelial Cells (None Seen) /HPF Urine Bacteria (None Seen) /HPF Urine Culture Reflexed (NO) Urine Opiates Level (NEGATIVE) Ur Methadone (NEGATIVE) Urine Barbiturates (NEGATIVE) Ur Phencyclidine (PCP) (NEGATIVE) Urine Amphetamine (NEGATIVE) U Benzodiazepine Level (NEGATIVE) Urine Cocaine (NEGATIVE) Urine Marijuana (THC) (NEGATIVE) Ethyl Alcohol < 10 (0-10) mg/dL Monoscreen NEGATIVE (NEGATIVE) Influenza Type A Ag (NEGATIVE) Influenza Type B Ag (NEGATIVE) RSV (PCR) (NEGATIVE) SARS-CoV-2 (PCR) (NEGATIVE) Group A Strep Antibody (NEGATIVE) Slides for Path Review YES 01/28/24 01/28/24 01/28/24 Range/Units 08:36 10:34 10:34 WBC (4.23-9.07) x10^3/uL RBC (4.63-6.08) x10^6/uL Hgb (13.7-17.5) g/dL Hct (40.1-51.0) % MCV (79.0-92.2) fL MCH (25.7-32.2) pg MCHC (32.3-36.5) g/dL RDW (11.6-14.4) % Plt Count (163-337) x10^3/uL MPV (9.4-12.4) fL Gran % (34.0-67.9) % Immature Gran % (Auto) (0.001-0.429) % Nucleat RBC Rel Count (0.00-0.2) % Eos # (Auto) (0.04-0.54) x10^3/uL Immature Gran # (Auto) (0.001-0.031) x10^3u/L Absolute Lymphs (auto) (1.32-3.57) x10^3/uL Absolute Monos (auto) (0.30-0.82) x10^3/uL Absolute Nucleated RBC (0.00-0.012) x10^3u/L Lymphocytes % (21.8-53.1) % Monocytes % (5.3-12.2) % Eosinophils % (0.8-7.0) % Basophils % (0.2-1.2) % Absolute Granulocytes (1.78-5.38) x10^3/uL Basophils # (0.01-0.08) x10^3/uL Sodium (135-145) mmol/L Potassium (3.5-5.1) mmol/L Chloride (98-107) mmol/L Carbon Dioxide (22-30) mmol/L Anion Gap (5-15) MEQ/L BUN (9-20) mg/dL Creatinine (0.66-1.25) mg/dL Estimated GFR ML/MIN Glucose (74-106) mg/dL Lactic Acid (0.4-2.0) Calcium (8.4-10.2) mg/dL Magnesium (1.6-2.3) mg/dL Total Bilirubin (0.2-1.3) mg/dL AST (17-59) U/L ALT (0-50) U/L Alkaline Phosphatase (38-126) U/L Troponin I 0.033 (0.000-0.033) ng/mL NT-Pro-B Natriuret Pep (<300) pg/mL Serum Total Protein (6.3-8.2) g/dL Albumin (3.5-5.0) g/dL Prealbumin (17.6-36.0) mg/dL Urine Color Yellow (Yellow) Urine Appearance Cloudy A (Clear) Urine pH 7.0 (4.6-8.0) Ur Specific [place] 1.010 (1.005-1.030) Urine Protein Trace A (Negative) Urine Glucose (UA) Negative (Negative) mg/dL Urine Ketones Negative (Negative) Urine Blood Moderate A (Negative) Urine Nitrite Negative (Negative) Urine Bilirubin Negative (Negative) Urine Urobilinogen 0.2 (0.2) mg/dL Ur Leukocyte Esterase Moderate A (Negative) U Hyaline Cast (Auto) 3-5 A (0-2) /LPF Urine Microscopic RBC 51-100 A (0-5) /HPF Urine Microscopic WBC 51-100 A (0-5) /HPF Ur Epithelial Cells None Seen (None Seen) /HPF Urine Bacteria Many A (None Seen) /HPF Urine Culture Reflexed ORDERED SEPARATELY (NO) Urine Opiates Level NEGATIVE (NEGATIVE) Ur Methadone NEGATIVE (NEGATIVE) Urine Barbiturates NEGATIVE (NEGATIVE) Ur Phencyclidine (PCP) NEGATIVE (NEGATIVE) Urine Amphetamine NEGATIVE (NEGATIVE) U Benzodiazepine Level NEGATIVE (NEGATIVE) Urine Cocaine NEGATIVE (NEGATIVE) Urine Marijuana (THC) NEGATIVE (NEGATIVE) Ethyl Alcohol (0-10) mg/dL Monoscreen (NEGATIVE) Influenza Type A Ag (NEGATIVE) Influenza Type B Ag (NEGATIVE) RSV (PCR) (NEGATIVE) SARS-CoV-2 (PCR) (NEGATIVE) Group A Strep Antibody (NEGATIVE) Slides for Path Review 01/28/24 01/28/24 01/28/24 Range/Units 10:45 11:15 11:50 WBC (4.23-9.07) x10^3/uL RBC (4.63-6.08) x10^6/uL Hgb (13.7-17.5) g/dL Hct (40.1-51.0) % MCV (79.0-92.2) fL MCH (25.7-32.2) pg MCHC (32.3-36.5) g/dL RDW (11.6-14.4) % Plt Count (163-337) x10^3/uL MPV (9.4-12.4) fL Gran % (34.0-67.9) % Immature Gran % (Auto) (0.001-0.429) % Nucleat RBC Rel Count (0.00-0.2) % Eos # (Auto) (0.04-0.54) x10^3/uL Immature Gran # (Auto) (0.001-0.031) x10^3u/L Absolute Lymphs (auto) (1.32-3.57) x10^3/uL Absolute Monos (auto) (0.30-0.82) x10^3/uL Absolute Nucleated RBC (0.00-0.012) x10^3u/L Lymphocytes % (21.8-53.1) % Monocytes % (5.3-12.2) % Eosinophils % (0.8-7.0) % Basophils % (0.2-1.2) % Absolute Granulocytes (1.78-5.38) x10^3/uL Basophils # (0.01-0.08) x10^3/uL Sodium (135-145) mmol/L Potassium (3.5-5.1) mmol/L Chloride (98-107) mmol/L Carbon Dioxide (22-30) mmol/L Anion Gap (5-15) MEQ/L BUN (9-20) mg/dL Creatinine (0.66-1.25) mg/dL Estimated GFR ML/MIN Glucose (74-106) mg/dL Lactic Acid 1.8 (0.4-2.0) Calcium (8.4-10.2) mg/dL Magnesium (1.6-2.3) mg/dL Total Bilirubin (0.2-1.3) mg/dL AST (17-59) U/L ALT (0-50) U/L Alkaline Phosphatase (38-126) U/L Troponin I 0.028 (0.000-0.033) ng/mL NT-Pro-B Natriuret Pep (<300) pg/mL Serum Total Protein (6.3-8.2) g/dL Albumin (3.5-5.0) g/dL Prealbumin (17.6-36.0) mg/dL Urine Color (Yellow) Urine Appearance (Clear) Urine pH (4.6-8.0) Ur Specific [place] (1.005-1.030) Urine Protein (Negative) Urine Glucose (UA) (Negative) mg/dL Urine Ketones (Negative) Urine Blood (Negative) Urine Nitrite (Negative) Urine Bilirubin (Negative) Urine Urobilinogen (0.2) mg/dL Ur Leukocyte Esterase (Negative) U Hyaline Cast (Auto) (0-2) /LPF Urine Microscopic RBC (0-5) /HPF Urine Microscopic WBC (0-5) /HPF Ur Epithelial Cells (None Seen) /HPF Urine Bacteria (None Seen) /HPF Urine Culture Reflexed (NO) Urine Opiates Level (NEGATIVE) Ur Methadone (NEGATIVE) Urine Barbiturates (NEGATIVE) Ur Phencyclidine (PCP) (NEGATIVE) Urine Amphetamine (NEGATIVE) U Benzodiazepine Level (NEGATIVE) Urine Cocaine (NEGATIVE) Urine Marijuana (THC) (NEGATIVE) Ethyl Alcohol (0-10) mg/dL Monoscreen (NEGATIVE) Influenza Type A Ag (NEGATIVE) Influenza Type B Ag (NEGATIVE) RSV (PCR) (NEGATIVE) SARS-CoV-2 (PCR) (NEGATIVE) Group A Strep Antibody NOT DETECTED (NEGATIVE) Slides for Path Review 01/28/24 01/28/24 01/28/24 Range/Units 11:50 15:48 15:48 WBC (4.23-9.07) x10^3/uL RBC (4.63-6.08) x10^6/uL Hgb (13.7-17.5) g/dL Hct (40.1-51.0) % MCV (79.0-92.2) fL MCH (25.7-32.2) pg MCHC (32.3-36.5) g/dL RDW (11.6-14.4) % Plt Count (163-337) x10^3/uL MPV (9.4-12.4) fL Gran % (34.0-67.9) % Immature Gran % (Auto) (0.001-0.429) % Nucleat RBC Rel Count (0.00-0.2) % Eos # (Auto) (0.04-0.54) x10^3/uL Immature Gran # (Auto) (0.001-0.031) x10^3u/L Absolute Lymphs (auto) (1.32-3.57) x10^3/uL Absolute Monos (auto) (0.30-0.82) x10^3/uL Absolute Nucleated RBC (0.00-0.012) x10^3u/L Lymphocytes % (21.8-53.1) % Monocytes % (5.3-12.2) % Eosinophils % (0.8-7.0) % Basophils % (0.2-1.2) % Absolute Granulocytes (1.78-5.38) x10^3/uL Basophils # (0.01-0.08) x10^3/uL Sodium (135-145) mmol/L Potassium 3.9 D (3.5-5.1) mmol/L Chloride (98-107) mmol/L Carbon Dioxide (22-30) mmol/L Anion Gap (5-15) MEQ/L BUN (9-20) mg/dL Creatinine (0.66-1.25) mg/dL Estimated GFR ML/MIN Glucose (74-106) mg/dL Lactic Acid (0.4-2.0) Calcium (8.4-10.2) mg/dL Magnesium (1.6-2.3) mg/dL Total Bilirubin (0.2-1.3) mg/dL AST (17-59) U/L ALT (0-50) U/L Alkaline Phosphatase (38-126) U/L Troponin I 0.026 (0.000-0.033) ng/mL NT-Pro-B Natriuret Pep (<300) pg/mL Serum Total Protein (6.3-8.2) g/dL Albumin (3.5-5.0) g/dL Prealbumin (17.6-36.0) mg/dL Urine Color (Yellow) Urine Appearance (Clear) Urine pH (4.6-8.0) Ur Specific [place] (1.005-1.030) Urine Protein (Negative) Urine Glucose (UA) (Negative) mg/dL Urine Ketones (Negative) Urine Blood (Negative) Urine Nitrite (Negative) Urine Bilirubin (Negative) Urine Urobilinogen (0.2) mg/dL Ur Leukocyte Esterase (Negative) U Hyaline Cast (Auto) (0-2) /LPF Urine Microscopic RBC (0-5) /HPF Urine Microscopic WBC (0-5) /HPF Ur Epithelial Cells (None Seen) /HPF Urine Bacteria (None Seen) /HPF Urine Culture Reflexed (NO) Urine Opiates Level (NEGATIVE) Ur Methadone (NEGATIVE) Urine Barbiturates (NEGATIVE) Ur Phencyclidine (PCP) (NEGATIVE) Urine Amphetamine (NEGATIVE) U Benzodiazepine Level (NEGATIVE) Urine Cocaine (NEGATIVE) Urine Marijuana (THC) (NEGATIVE) Ethyl Alcohol (0-10) mg/dL Monoscreen (NEGATIVE) Influenza Type A Ag NEGATIVE (NEGATIVE) Influenza Type B Ag NEGATIVE (NEGATIVE) RSV (PCR) NEGATIVE (NEGATIVE) SARS-CoV-2 (PCR) NEGATIVE (NEGATIVE) Group A Strep Antibody (NEGATIVE) Slides for Path Review 01/28/24 01/29/24 01/29/24 Range/Units 15:48 04:10 04:10 WBC 17.7 H (4.23-9.07) x10^3/uL RBC 3.58 L (4.63-6.08) x10^6/uL Hgb 11.2 L (13.7-17.5) g/dL Hct 34.1 L (40.1-51.0) % MCV 95.3 H (79.0-92.2) fL MCH 31.3 (25.7-32.2) pg MCHC 32.8 (32.3-36.5) g/dL RDW 14.2 (11.6-14.4) % Plt Count 141 L (163-337) x10^3/uL MPV 10.0 (9.4-12.4) fL Gran % 85.8 H (34.0-67.9) % Immature Gran % (Auto) 0.7 H (0.001-0.429) % Nucleat RBC Rel Count 0.0 (0.00-0.2) % Eos # (Auto) 0.02 L (0.04-0.54) x10^3/uL Immature Gran # (Auto) 0.12 H (0.001-0.031) x10^3u/L Absolute Lymphs (auto) 0.98 L (1.32-3.57) x10^3/uL Absolute Monos (auto) 1.37 H (0.30-0.82) x10^3/uL Absolute Nucleated RBC 0.00 (0.00-0.012) x10^3u/L Lymphocytes % 5.5 L (21.8-53.1) % Monocytes % 7.7 (5.3-12.2) % Eosinophils % 0.1 L (0.8-7.0) % Basophils % 0.2 (0.2-1.2) % Absolute Granulocytes 15.18 H (1.78-5.38) x10^3/uL Basophils # 0.04 (0.01-0.08) x10^3/uL Sodium 139 (135-145) mmol/L Potassium 3.5 (3.5-5.1) mmol/L Chloride 107 (98-107) mmol/L Carbon Dioxide 28 (22-30) mmol/L Anion Gap 7.7 (5-15) MEQ/L BUN 17 (9-20) mg/dL Creatinine 1.20 (0.66-1.25) mg/dL Estimated GFR 67.1 ML/MIN Glucose 95 (74-106) mg/dL Lactic Acid (0.4-2.0) Calcium 8.3 L (8.4-10.2) mg/dL Magnesium 2.0 (1.6-2.3) mg/dL Total Bilirubin 0.70 (0.2-1.3) mg/dL AST 34 (17-59) U/L ALT 21 (0-50) U/L Alkaline Phosphatase 70 (38-126) U/L Troponin I (0.000-0.033) ng/mL NT-Pro-B Natriuret Pep (<300) pg/mL Serum Total Protein 6.1 L (6.3-8.2) g/dL Albumin 3.1 L (3.5-5.0) g/dL Prealbumin 20.16 (17.6-36.0) mg/dL Urine Color (Yellow) Urine Appearance (Clear) Urine pH (4.6-8.0) Ur Specific [place] (1.005-1.030) Urine Protein (Negative) Urine Glucose (UA) (Negative) mg/dL Urine Ketones (Negative) Urine Blood (Negative) Urine Nitrite (Negative) Urine Bilirubin (Negative) Urine Urobilinogen (0.2) mg/dL Ur Leukocyte Esterase (Negative) U Hyaline Cast (Auto) (0-2) /LPF Urine Microscopic RBC (0-5) /HPF Urine Microscopic WBC (0-5) /HPF Ur Epithelial Cells (None Seen) /HPF Urine Bacteria (None Seen) /HPF Urine Culture Reflexed (NO) Urine Opiates Level (NEGATIVE) Ur Methadone (NEGATIVE) Urine Barbiturates (NEGATIVE) Ur Phencyclidine (PCP) (NEGATIVE) Urine Amphetamine (NEGATIVE) U Benzodiazepine Level (NEGATIVE) Urine Cocaine (NEGATIVE) Urine Marijuana (THC) (NEGATIVE) Ethyl Alcohol (0-10) mg/dL Monoscreen (NEGATIVE) Influenza Type A Ag (NEGATIVE) Influenza Type B Ag (NEGATIVE) RSV (PCR) (NEGATIVE) SARS-CoV-2 (PCR) (NEGATIVE) Group A Strep Antibody (NEGATIVE) Slides for Path Review Radiology Exams: Radiology Procedures Category Date Time Status ABDOMEN AND PELVIS W/0 CONTRAS [CT] Urgent Exams 01/28/24 18:07 Taken CERVICAL SPINE WO CONTRAST [CT] Stat Exams 01/28/24 08:23 Completed CHEST 1 VIEW (PORTABLE) Stat Exams 01/28/24 10:55 Completed HEAD WITHOUT CONTRAST [CT] Stat Exams 01/28/24 08:23 Completed HIP JOSE ALBERTO (4V) INCL PELV IF DONE Stat Exams 01/28/24 08:24 Completed KUB Routine Exams 01/28/24 15:03 Completed LUMBAR LIMITED (2 OR 3 VIEWS) Stat Exams 01/28/24 08:24 Completed SHOULDER Stat Exams 01/28/24 08:24 Completed Assessment/Plan (1) Sepsis Current Visit: Yes Status: Acute Assessment & Plan: -meets criteria with tachycardia, hypotension, leukocytosis, UTI, LIZ -severe -WBC at 21.5 on admission -UA suspicious for UTI -LA WNL -Patient given 1L fluid bolus -Ceftriaxone given in ED, will continue with 2g Rocephin -Supplemental oxygen as needed for goal spo2 > 90% -CXR with no acute findings -continue IVF -Strict I&O -Target MAP > 65mmHg -Consider norepinephrine drip if patient remains hypotensive/map<65 -Stress ulcer PPI with protonix 01/28: -WBC downtrending 17.7<21.5 -Continue Ceftriaxone - follow ucult -BP stable (2) UTI (urinary tract infection) Current Visit: Yes Status: Acute Assessment & Plan: -treat with Rocephin empirically- follow cultures Code(s): N39.0 - URINARY TRACT INFECTION, SITE NOT SPECIFIED (3) LIZ (acute kidney injury) Current Visit: Yes Status: Acute Assessment & Plan: -Most likely secondary to infection/hypovolemia -Avoid QUINTON/ARB/Nsaids -IVF -Monitor I&O's -Bladder scan for residual 01/29/24: -Resoved Code(s): N17.9 - ACUTE KIDNEY FAILURE, UNSPECIFIED (4) Fall with no significant injury Current Visit: Yes Status: Acute Assessment & Plan: -CT scan without contrast of cervical spine shows no acute fracture or subluxation. There is mild bilateral TMJ degenerative changes. -CT scan of the head without contrast shows paranasal sinus disease. Remainder of the study is within normal limits -Left shoulder x-ray no acute fracture or dislocation -Lumbar spine x-ray mild multilevel thoracolumbar degenerative changes without acute fracture or subluxation -Bilateral hip/pelvic x-ray no acute fracture or dislocation -Orthostatic vitals -med review -according to family report patient does not take medications as prescribed often overdoses -echo -consider -?infective etiology 2/2 to sepsis Code(s): W19.XXXA - UNSPECIFIED FALL, INITIAL ENCOUNTER (5) Hypokalemia Current Visit: Yes Status: Acute Assessment & Plan: -Received 20meq IV in ED, will replenish per protocol -tele 01/28: -Resolved Code(s): E87.6 - HYPOKALEMIA (6) Hypomagnesemia Current Visit: Yes Status: Acute Assessment & Plan: -Given 1g in ED - repeat in a.m. 01/28: -Resolved Code(s): E83.42 - HYPOMAGNESEMIA (7) Hypotension Current Visit: Yes Status: Acute Assessment & Plan: -stable after fluid resuscitation - hold BP meds for now- continue IVF - see sepsis -med review Code(s): I95.9 - HYPOTENSION, UNSPECIFIED (8) History of kidney stones Current Visit: Yes Status: Acute Assessment & Plan: -recent surgical intervention last month with stones removed from both right and left ureter -Bladder scan -KUB 01/28: -KUB showing bilateral renal micro-calculi, largest left lower pole measuring 6- 7 mm. 6 x 9 mm right pelvic inlet ureteral calculus versus phlebolith -CT ab/pelvis ordered 01/28: -CT showing 5-6 mm distal left ureteral calculus producing partial obstruction -strain urine -continue IVF/flomax -repeat KUB in 24 hours (2) UTI (urinary tract infection) Current Visit: Yes Status: Acute Code(s): N39.0 - URINARY TRACT INFECTION, SITE NOT SPECIFIED (3) LIZ (acute kidney injury) Current Visit: Yes Status: Acute Code(s): N17.9 - ACUTE KIDNEY FAILURE, UNSPECIFIED (4) Fall with no significant injury Current Visit: Yes Status: Acute Code(s): W19.XXXA - UNSPECIFIED FALL, INITIAL ENCOUNTER (5) Hypokalemia Current Visit: Yes Status: Acute Code(s): E87.6 - HYPOKALEMIA (6) Hypomagnesemia Current Visit: Yes Status: Acute Code(s): E83.42 - HYPOMAGNESEMIA (7) Hypotension Current Visit: Yes Status: Acute Code(s): I95.9 - HYPOTENSION, UNSPECIFIED (8) History of kidney stones Current Visit: Yes Status: Acute Code(s): Z87.442 - PERSONAL HISTORY OF URINARY CALCULI
--- NOTE | 2024-01-29 08:37 | XRAY ---
Indication: Abdomen/groin pain. Multiple contiguous axial images obtained through the abdomen and pelvis without contrast using renal stone protocol. Comparison: None Lung bases demonstrates mild scattered peripheral subsegmental atelectasis/scarring. No infiltrate or effusion. Heart not enlarged. There is 5-6 mm distal left ureteral calculus approximately 2 cm proximal to UVJ. Proximal left ureter is mildly prominent along with mild hydronephrosis consistent with partial obstructive uropathy. Nonspecific bilateral perinephric stranding and additional bilateral renal micro-calculi. Stomach is distended with food/fluid. Noncontrasted stomach and bowel loops appear nonobstructed. A few hepatic cysts, largest right lobe measuring 2.8 cm. Gallbladder demonstrates 3 mm gallstone. No free fluid/air. Remaining liver, gallbladder, pancreas, spleen, adrenal glands, kidneys, ureters, and bladder are unremarkable for noncontrast exam. Very minimal scattered aortoiliac calcifications without AAA. Osseous structures intact with osteopenia, mild degenerative changes throughout spine, minimal dextroscoliosis centered at T12, and mild degenerative changes both hips. Impression: 1. 5-6 mm distal left ureteral calculus producing partial obstruction as detailed. Additional bilateral renal micro-calculi. 2. Chronic findings including hepatic cysts, gallstone, arteriosclerotic disease, and chronic bony findings.
[2024-01-29] MEDS: Flomax 0.4 MG PO SCH (09:11)
[2024-01-29] MEDS: ZOCOR 20MG PO SCH (09:11)
[2024-01-29] MEDS: ROCEPHIN 2 GM/100 ML NACL 2 GM/100 ML IVPB IV SCH (09:12)
[2024-01-29] MEDS ORDERED: ROCEPHIN 1 GM / 100 ML NaCl 1 GM/100 ML IVPB IV SCH (10:00)
[2024-01-29] MEDS ORDERED: LIPITOR 40MG PO SCH (10:00)
[2024-01-29] MEDS ORDERED: FENOFIBRATE 54 MG PO SCH (10:00)
[2024-01-29] MEDS: PATIENT OWN MEDICATION PO SCH (21:13)
[2024-01-29] MEDS: TYLENOL 325 MG PO PRN (21:20)
[2024-01-30 05:13] LABS: Absolute Neutrophil Ct (ANC) 10.39 x10^3/uL (1.78-5.38); BASOPHIL % 0.2 % (0.2-1.2); Basophil (Absolute #) 0.03 x10^3/uL (0.01-0.08); Eosinophil % 0.7 % (0.8-7.0); Eosinophil (Absolute #) 0.09 x10^3/uL (0.04-0.54); Hematocrit 35.5 % (40.1-51.0); Hemoglobin 11.8 g/dL (13.7-17.5); IMMATURE GRAN # 0.05 x10^3u/L (0.001-0.031); IMMATURE GRAN % 0.4 % (0.001-0.429); Lymphocyte (Absolute #) 1.47 x10^3/uL (1.32-3.57); Lymphocytes % 11.3 % (21.8-53.1); Mean Cell Volume 93.2 fL (79.0-92.2); Mean Corpuscular Hgb Concent. 33.2 g/dL (32.3-36.5); Mean Platelet Volume 9.4 fL (9.4-12.4); Monocyte (Absolute #) 1.02 x10^3/uL (0.30-0.82); Monocytes % 7.8 % (5.3-12.2); Neutrophil % 79.6 % (34.0-67.9); Platelet Count 161 x10^3/uL (163-337); Red Blood Count 3.81 x10^6/uL (4.63-6.08); Red Cell Distribution Width 13.8 % (11.6-14.4); White Blood Count 13.1 x10^3/uL (4.23-9.07)
--- NOTE | 2024-01-30 05:33 | PCM.NOTE ---
Date and Time: 01/30/24 0532 Subjective Assessment: HPI: Mr.MCMULLEN BRYSON is a 63 year old male with a pmhx of kidney stones, [place], CAD, Stroke, HTN, and MT who presented to ED 01/28/24 after experiencing several (7 x per pt report) falls at home. He reports that he has had ongoing hypotension and has been worked up OP by his PCP who has cut one of his BP meds in half (unsure of the name). Patient had a systolic blood pressure of 74 at home when the paramedics arrived to bring him to the emergency department. Patient arrives to the emergency department with intravenous normal saline running and his systolic blood pressure on arrival is 94. He also reports that he has noticed frequency with urination, hematuria, and right flank pain. Patient states that he had stones removed from both right and left ureters last month with Dr. Barahona/[place]. He states that one of his fall was resultant from him slipping on urine after he attempted to edwards to the bathroom to urinate but did not make it in time. Upon arrival to ED, patient was tachycardic and hypotensive. CT scan without contrast of cervical spine shows no acute fracture or subluxation. There is mild bilateral TMJ degenerative changes. CT scan of the head without contrast shows paranasal sinus disease. Remainder of the study is within normal limits. CXR with no acute findings. Left shoulder x-ray no acute fracture or dislocation. Lumbar spine x-ray mild multilevel thoracolumbar degenerative changes without acute fracture or subluxation. Bilateral hip/pelvic x-ray no acute fracture or dislocation. KUB showing bilateral renal micro-calculi, largest left lower pole measuring 6-7 mm. 6 x9 mm right pelvic inlet ureteral calculus versus phlebolith. CT remarkable for 5-6 mm distal left ureteral calculus producing partial obstruction. Lab findings remarkable for leukocytosis with WBC at 21.5, macrocytic anemia with hgb at 11.2, hypokalemia at 2.8, hypomagnesemia at 1.3, LIZ with creat at 1.71 (baseline around 0.87), and BNP at 3030. UA with blood/moderate leukocytes. Patient was given a fluid bolus, rocephin, potassium, and magnesium in ED. Admit for urosepsi s/LIZ/hypokalemia/hypomagnesemia. PVR with minimal residual. 01/29/24: Met with patient bedside. No further episodes of hypotension overnight. Of note, RN reported that patient's brother called stating that patient does not take his medications correctly (over doses/takes meds with NyQuil) and has had several similar episodes of falling due to this. Discussed implications with patient who states he takes his medications as prescribed. Labs improving. LIZ and electrolyte deficiencies have resolved. WBC trending down. Urine and blood cultures are pending. CT remarkable for 5-6 mm distal left ureteral calculus producing partial obstruction. 01/30/24: Feeling better today. BP stable. WBC trending down. Ucult with gram negative ID, sensitivity pending. Per RN report 1 dark piece of grit strained from urine overnight. Will continue to strain urine. Patient does have good urine output. Endorses continued hematuria and flank pain. Plan to continue with current treatment. - Review of Systems Constitutional: No Symptoms Eyes: No Symptoms Ears, Nose, & Throat: No Symptoms Respiratory: No Symptoms Cardiac: No Symptoms Abdominal/Gastrointestinal: No Symptoms Genitourinary Symptoms: Hematuria, Flank Pain Musculoskeletal: No Symptoms Skin: No Symptoms Neurological: No Symptoms Psychological: No Symptoms Endocrine: No Symptoms Hematologic/Lymphatic: No Symptoms Immunological/Allergic: No Symptoms Objective Exam General Appearance: no apparent distress Neurologic Exam: alert, oriented x 3, cooperative Skin Exam: other (laceration to nose scabbed) Wound Assessment: Skin/Wound Assessment Wound/Incision Assessment Start: 01/28/24 15:19 Text: Status: Active Freq: Q6H Protocol: Document 01/30/24 02:00 LB (Rec: 01/30/24 02:42 LB [id number]) Wound/Incision Assessment Anterior Face Wound Assessment Shift Assessment Wound Type small bump Wound Stage Non Pressure Wound Drainage Amount None General Appearance Open to air Comment Right upper eye Left Elbow Wound Assessment Shift Assessment Wound Type Abrasion Wound Stage Non Pressure Wound Drainage Amount None General Appearance Open to air Posterior Shoulder Wound Assessment Shift Assessment Wound Type Abrasion Wound Stage Non Pressure Wound Drainage Amount None General Appearance Open to air Wound Photo Photo Taken No Eye Exam: PERRL Ears, Nose, Throat Exam: normal ENT inspection Neck Exam: normal inspection Respiratory Exam: normal breath sounds, lungs clear Cardiovascular Exam: regular rate/rhythm, normal heart sounds Gastrointestinal/Abdomen Exam: soft, other (right flank tenderness), No tenderness, No mass Extremity Exam: normal inspection Back Exam: normal inspection Male Genitalia Exam: deferred Rectal Exam: deferred Objective Data Vital Signs: Vital Signs - 24 hr Temp Pulse Resp BP Pulse Ox 01/30/24 00:00 98.9 F 75 17 160/82 92 L 01/29/24 20:00 60 16 131/72 95 01/29/24 16:00 98.2 F 80 16 156/81 92 L 01/29/24 11:30 98.4 F 86 16 159/84 92 L 01/29/24 07:56 97.5 F 77 16 140/79 92 L Pain Assessment - Last Documented Pain Intensity 9 Pain Scale Used 0-10 Pain Scale Intake and Output: Intake & Output 01/27/24 01/28/24 01/29/24 01/30/24 11:59 11:59 11:59 11:59 Intake Total 600 2403 Output Total 4207 6945 Balance -3605 -5332 Weight 97.5 kg 98.3 kg Lab Results: Lab Results-Last 24 Hours 01/30/24 Range/Units 05:00 WBC 13.1 H (4.23-9.07) x10^3/uL RBC 3.81 L (4.63-6.08) x10^6/uL Hgb 11.8 L (13.7-17.5) g/dL Hct 35.5 L (40.1-51.0) % MCV 93.2 H (79.0-92.2) fL MCH 31.0 (25.7-32.2) pg MCHC 33.2 (32.3-36.5) g/dL RDW 13.8 (11.6-14.4) % Plt Count 161 L (163-337) x10^3/uL MPV 9.4 (9.4-12.4) fL Gran % 79.6 H (34.0-67.9) % Immature Gran % (Auto) 0.4 (0.001-0.429) % Nucleat RBC Rel Count 0.0 (0.00-0.2) % Eos # (Auto) 0.09 (0.04-0.54) x10^3/uL Immature Gran # (Auto) 0.05 H (0.001-0.031) x10^3u/L Absolute Lymphs (auto) 1.47 (1.32-3.57) x10^3/uL Absolute Monos (auto) 1.02 H (0.30-0.82) x10^3/uL Absolute Nucleated RBC 0.00 (0.00-0.012) x10^3u/L Lymphocytes % 11.3 L (21.8-53.1) % Monocytes % 7.8 (5.3-12.2) % Eosinophils % 0.7 L (0.8-7.0) % Basophils % 0.2 (0.2-1.2) % Absolute Granulocytes 10.39 H (1.78-5.38) x10^3/uL Basophils # 0.03 (0.01-0.08) x10^3/uL Radiology Exams: Radiology Procedures Category Date Time Status ABDOMEN AND PELVIS W/0 CONTRAS [CT] Urgent Exams 01/28/24 18:07 Completed CERVICAL SPINE WO CONTRAST [CT] Stat Exams 01/28/24 08:23 Completed CHEST 1 VIEW (PORTABLE) Stat Exams 01/28/24 10:55 Completed HEAD WITHOUT CONTRAST [CT] Stat Exams 01/28/24 08:23 Completed HIP JOSE ALBERTO (4V) INCL PELV IF DONE Stat Exams 01/28/24 08:24 Completed KUB Routine Exams 01/28/24 15:03 Completed LUMBAR LIMITED (2 OR 3 VIEWS) Stat Exams 01/28/24 08:24 Completed SHOULDER Stat Exams 01/28/24 08:24 Completed Assessment/Plan (1) Sepsis Current Visit: Yes Status: Acute Assessment & Plan: -meets criteria with tachycardia, hypotension, leukocytosis, UTI, LIZ -severe -WBC at 21.5 on admission -UA suspicious for UTI -LA WNL -Patient given 1L fluid bolus -Ceftriaxone given in ED, will continue with 2g Rocephin -Supplemental oxygen as needed for goal spo2 > 90% -CXR with no acute findings -continue IVF -Strict I&O -Target MAP > 65mmHg -Consider norepinephrine drip if patient remains hypotensive/map<65 -Stress ulcer PPI with protonix 01/28: -WBC downtrending 17.7<21.5 -Continue Ceftriaxone - follow ucult -BP stable 01/29: WBC 13.1<17.7<21.5 - improving -no longer hypotensive -ucult with gram - ID, sens pending - continue ceftriaxone for now - continue IVF (2) UTI (urinary tract infection) Current Visit: Yes Status: Acute Assessment & Plan: -treat with Rocephin empirically- follow cultures Code(s): N39.0 - URINARY TRACT INFECTION, SITE NOT SPECIFIED (3) LIZ (acute kidney injury) Current Visit: Yes Status: Acute Assessment & Plan: -Most likely secondary to infection/hypovolemia -Avoid QUINTON/ARB/Nsaids -IVF -Monitor I&O's -Bladder scan for residual 01/29/24: -Resoved Code(s): N17.9 - ACUTE KIDNEY FAILURE, UNSPECIFIED (4) Fall with no significant injury Current Visit: Yes Status: Acute Assessment & Plan: -CT scan without contrast of cervical spine shows no acute fracture or subluxation. There is mild bilateral TMJ degenerative changes. -CT scan of the head without contrast shows paranasal sinus disease. Remainder of the study is within normal limits -Left shoulder x-ray no acute fracture or dislocation -Lumbar spine x-ray mild multilevel thoracolumbar degenerative changes without acute fracture or subluxation -Bilateral hip/pelvic x-ray no acute fracture or dislocation -Orthostatic vitals -med review -according to family report patient does not take medications as prescribed often overdoses -echo -consider -?infective etiology 2/2 to sepsis Code(s): W19.XXXA - UNSPECIFIED FALL, INITIAL ENCOUNTER (5) Hypokalemia Current Visit: Yes Status: Acute Assessment & Plan: -Received 20meq IV in ED, will replenish per protocol -tele 01/28: -Resolved Code(s): E87.6 - HYPOKALEMIA (6) Hypomagnesemia Current Visit: Yes Status: Acute Assessment & Plan: -Given 1g in ED - repeat in a.m. 01/28: -Resolved Code(s): E83.42 - HYPOMAGNESEMIA (7) Hypotension Current Visit: Yes Status: Acute Assessment & Plan: -stable after fluid resuscitation - hold BP meds for now- continue IVF - see sepsis -med review 01/29: -Resolved - resume amlodipine Code(s): I95.9 - HYPOTENSION, UNSPECIFIED (8) History of kidney stones Current Visit: Yes Status: Acute Assessment & Plan: -recent surgical intervention last month with stones removed from both right and left ureter -Bladder scan -KUB 01/28: -KUB showing bilateral renal micro-calculi, largest left lower pole measuring 6- 7 mm. 6 x 9 mm right pelvic inlet ureteral calculus versus phlebolith -CT ab/pelvis ordered 01/28: -CT showing 5-6 mm distal left ureteral calculus producing partial obstruction -strain urine -continue IVF/flomax -repeat KUB in 24 hours 01/29: -Continue to strain urine - dark grit reported by overnight RN -repeat KUB tomorrow (2) UTI (urinary tract infection) Current Visit: Yes Status: Acute Code(s): N39.0 - URINARY TRACT INFECTION, SITE NOT SPECIFIED (3) LIZ (acute kidney injury) Current Visit: Yes Status: Acute Code(s): N17.9 - ACUTE KIDNEY FAILURE, UNSPECIFIED (4) Fall with no significant injury Current Visit: Yes Status: Acute Code(s): W19.XXXA - UNSPECIFIED FALL, INITIAL ENCOUNTER (5) Hypokalemia Current Visit: Yes Status: Acute Code(s): E87.6 - HYPOKALEMIA (6) Hypomagnesemia Current Visit: Yes Status: Acute Code(s): E83.42 - HYPOMAGNESEMIA (7) Hypotension Current Visit: Yes Status: Acute Code(s): I95.9 - HYPOTENSION, UNSPECIFIED (8) History of kidney stones Current Visit: Yes Status: Acute Code(s): Z87.442 - PERSONAL HISTORY OF URINARY CALCULI
[2024-01-30 05:51] LABS: ALBUMIN 3.6 g/dL (3.5-5.0); ANION GAP 8.2 MEQ/L (5-15); BILIRUBIN,TOTAL 0.6 mg/dL (0.2-1.3); Calcium 8.5 mg/dL (8.4-10.2); Creatinine 1 0.93 mg/dL (0.66-1.25); EST GLOMERULAR FILTRATION RATE 91.1 ML/MIN; Potassium 3.5 mmol/L (3.5-5.1); Total Protein 6.9 g/dL (6.3-8.2)
[2024-01-30 06:00] LABS: Slide Review 1 YES
[2024-01-30] MEDS: NORVASC 5 MG PO SCH (11:45)
[2024-01-30] MEDS: Cozaar 50 MG PO SCH (20:02)
[2024-01-30] MEDS: MELATONIN PO PRN (21:01)
[2024-01-31 04:42] LABS: BASOPHIL % 0.4 % (0.2-1.2); Basophil (Absolute #) 0.03 x10^3/uL (0.01-0.08); Eosinophil % 1.9 % (0.8-7.0); Eosinophil (Absolute #) 0.16 x10^3/uL (0.04-0.54); Hematocrit 35.5 % (40.1-51.0); Hemoglobin 12.1 g/dL (13.7-17.5); IMMATURE GRAN # 0.04 x10^3u/L (0.001-0.031); IMMATURE GRAN % 0.5 % (0.001-0.429); Lymphocyte (Absolute #) 1.21 x10^3/uL (1.32-3.57); Lymphocytes % 14.5 % (21.8-53.1); Mean Cell Volume 92.7 fL (79.0-92.2); Mean Corpuscular Hemoglobin 31.6 pg (25.7-32.2); Mean Corpuscular Hgb Concent. 34.1 g/dL (32.3-36.5); Mean Platelet Volume 9.4 fL (9.4-12.4); Monocyte (Absolute #) 0.82 x10^3/uL (0.30-0.82); Monocytes % 9.8 % (5.3-12.2); Neutrophil % 72.9 % (34.0-67.9); Platelet Count 162 x10^3/uL (163-337); Red Blood Count 3.83 x10^6/uL (4.63-6.08); Red Cell Distribution Width 13.8 % (11.6-14.4); White Blood Count 8.4 x10^3/uL (4.23-9.07)
[2024-01-31 04:54] LABS: ALBUMIN 3.6 g/dL (3.5-5.0); ANION GAP 8.2 MEQ/L (5-15); BILIRUBIN,TOTAL 0.5 mg/dL (0.2-1.3); Calcium 8.8 mg/dL (8.4-10.2); Creatinine 1 0.74 mg/dL (0.66-1.25); EST GLOMERULAR FILTRATION RATE 100.6 ML/MIN; Potassium 3.3 mmol/L (3.5-5.1); Total Protein 7.1 g/dL (6.3-8.2)
--- NOTE | 2024-01-31 05:19 | PCM.NOTE ---
Date and Time: 01/31/24 0516 Subjective Assessment: HPI: Mr.MCMULLEN BRYSON is a 63 year old male with a pmhx of kidney stones, [place], CAD, Stroke, HTN, and TM who presented to ED 01/28/24 after experiencing several (7 x per pt report) falls at home. He reports that he has had ongoing hypotension and has been worked up OP by his PCP who has cut one of his BP meds in half (unsure of the name). Patient had a systolic blood pressure of 74 at home when the paramedics arrived to bring him to the emergency department. Patient arrives to the emergency department with intravenous normal saline running and his systolic blood pressure on arrival is 94. He also reports that he has noticed frequency with urination, hematuria, and right flank pain. Patient states that he had stones removed from both right and left ureters last month with Dr. Barahona/[place]. He states that one of his fall was resultant from him slipping on urine after he attempted to edwards to the bathroom to urinate but did not make it in time. Upon arrival to ED, patient was tachycardic and hypotensive. CT scan without contrast of cervical spine shows no acute fracture or subluxation. There is mild bilateral TMJ degenerative changes. CT scan of the head without contrast shows paranasal sinus disease. Remainder of the study is within normal limits. CXR with no acute findings. Left shoulder x-ray no acute fracture or dislocation. Lumbar spine x-ray mild multilevel thoracolumbar degenerative changes without acute fracture or subluxation. Bilateral hip/pelvic x-ray no acute fracture or dislocation. KUB showing bilateral renal micro-calculi, largest left lower pole measuring 6-7 mm. 6 x9 mm right pelvic inlet ureteral calculus versus phlebolith. CT remarkable for 5-6 mm distal left ureteral calculus producing partial obstruction. Lab findings remarkable for leukocytosis with WBC at 21.5, macrocytic anemia with hgb at 11.2, hypokalemia at 2.8, hypomagnesemia at 1.3, LIZ with creat at 1.71 (baseline around 0.87), and BNP at 3030. Ucult with klebsiella oxytoca - sensitivity to ceftriaxone. Patient was given a fluid bolus, rocephin, potassium, and magnesium in ED. Admit for urosepsis/LIZ/hypokalemia/hypomagnesemia. PVR with minimal residual. IP treatment with ceftriaxone. LIZ has resolved. Hypotension has resolved - BP meds resumed. WBC now normal. 01/29/24: Met with patient bedside. No further episodes of hypotension overnight. Of note, RN reported that patient's brother called stating that patient does not take his medications correctly (over doses/takes meds with NyQuil) and has had several similar episodes of falling due to this. Discussed implications with patient who states he takes his medications as prescribed. Labs improving. LIZ and bertha ctrolyte deficiencies have resolved. WBC trending down. Urine and blood cultures are pending. CT remarkable for 5-6 mm distal left ureteral calculus producing partial obstruction. 01/30/24: Feeling better today. BP stable. WBC trending down. Ucult with gram negative ID, sensitivity pending. Per RN report 1 dark piece of grit strained from urine overnight. Will continue to strain urine. Patient does have good urine output. Endorses continued hematuria and flank pain. Plan to continue with current treatment. Objective Exam Wound Assessment: Skin/Wound Assessment Wound/Incision Assessment Start: 01/28/24 15:19 Text: Status: Active Freq: Q6H Protocol: Document 01/30/24 19:17 [facility] (Rec: 01/30/24 19:18 [facility] [id number]) Wound/Incision Assessment Anterior Face Wound Assessment Shift Assessment Wound Type Knot Wound Stage Non Pressure Wound Drainage Amount None General Appearance Open to air Comment Right upper eye knot Left Elbow Wound Assessment Shift Assessment Wound Type Abrasion Wound Stage Non Pressure Wound Drainage Amount None General Appearance Open to air Posterior Shoulder Wound Assessment Shift Assessment Wound Type Abrasion Wound Stage Non Pressure Wound Drainage Amount None General Appearance Open to air Wound Photo Photo Taken No Objective Data Vital Signs: Vital Signs - 24 hr Temp Pulse Resp BP Pulse Ox 01/30/24 23:52 97.7 F 73 16 163/80 90 L 01/30/24 20:00 98.4 F 81 18 177/90 92 L 01/30/24 16:00 97.8 F 69 16 170/84 93 L 01/30/24 11:45 98.6 F 70 16 157/81 96 01/30/24 07:17 97.8 F 66 16 160/95 96 Pain Assessment - Last Documented Pain Intensity 3 Pain Scale Used 0-10 Pain Scale Intake and Output: Intake & Output 01/28/24 01/29/24 01/30/24 01/31/24 11:59 11:59 11:59 11:59 Intake Total 752 9656 9030 Output Total 0220 9694 1556 Balance -7042 -2110 -006 Weight 97.5 kg 98.3 kg 96.2 kg 96.2 kg Lab Results: Lab Results-Last 24 Hours 01/30/24 01/30/24 01/31/24 Range/Units 05:00 05:00 04:34 WBC 13.1 H 8.4 (4.23-9.07) x10^3/uL RBC 3.81 L 3.83 L (4.63-6.08) x10^6/uL Hgb 11.8 L 12.1 L (13.7-17.5) g/dL Hct 35.5 L 35.5 L (40.1-51.0) % MCV 93.2 H 92.7 H (79.0-92.2) fL MCH 31.0 31.6 (25.7-32.2) pg MCHC 33.2 34.1 (32.3-36.5) g/dL RDW 13.8 13.8 (11.6-14.4) % Plt Count 161 L 162 L (163-337) x10^3/uL MPV 9.4 9.4 (9.4-12.4) fL Gran % 79.6 H 72.9 H (34.0-67.9) % Immature Gran % (Auto) 0.4 0.5 H (0.001-0.429) % Nucleat RBC Rel Count 0.0 0.0 (0.00-0.2) % Eos # (Auto) 0.09 0.16 (0.04-0.54) x10^3/uL Immature Gran # (Auto) 0.05 H 0.04 H (0.001-0.031) x10^3u/L Absolute Lymphs (auto) 1.47 1.21 L (1.32-3.57) x10^3/uL Absolute Monos (auto) 1.02 H 0.82 (0.30-0.82) x10^3/uL Absolute Nucleated RBC 0.00 0.00 (0.00-0.012) x10^3u/L Lymphocytes % 11.3 L 14.5 L (21.8-53.1) % Monocytes % 7.8 9.8 (5.3-12.2) % Eosinophils % 0.7 L 1.9 (0.8-7.0) % Basophils % 0.2 0.4 (0.2-1.2) % Absolute Granulocytes 10.39 H 6.10 H (1.78-5.38) x10^3/uL Basophils # 0.03 0.03 (0.01-0.08) x10^3/uL Sodium 141 (135-145) mmol/L Potassium 3.5 (3.5-5.1) mmol/L Chloride 107 (98-107) mmol/L Carbon Dioxide 29 (22-30) mmol/L Anion Gap 8.2 (5-15) MEQ/L BUN 9 (9-20) mg/dL Creatinine 0.93 (0.66-1.25) mg/dL Estimated GFR 91.1 ML/MIN Glucose 110 H (74-106) mg/dL Calcium 8.5 (8.4-10.2) mg/dL Total Bilirubin 0.60 (0.2-1.3) mg/dL AST 35 (17-59) U/L ALT 22 (0-50) U/L Alkaline Phosphatase 81 (38-126) U/L Serum Total Protein 6.9 (6.3-8.2) g/dL Albumin 3.6 (3.5-5.0) g/dL Slides for Path Review YES 01/31/24 Range/Units 04:34 WBC (4.23-9.07) x10^3/uL RBC (4.63-6.08) x10^6/uL Hgb (13.7-17.5) g/dL Hct (40.1-51.0) % MCV (79.0-92.2) fL MCH (25.7-32.2) pg MCHC (32.3-36.5) g/dL RDW (11.6-14.4) % Plt Count (163-337) x10^3/uL MPV (9.4-12.4) fL Gran % (34.0-67.9) % Immature Gran % (Auto) (0.001-0.429) % Nucleat RBC Rel Count (0.00-0.2) % Eos # (Auto) (0.04-0.54) x10^3/uL Immature Gran # (Auto) (0.001-0.031) x10^3u/L Absolute Lymphs (auto) (1.32-3.57) x10^3/uL Absolute Monos (auto) (0.30-0.82) x10^3/uL Absolute Nucleated RBC (0.00-0.012) x10^3u/L Lymphocytes % (21.8-53.1) % Monocytes % (5.3-12.2) % Eosinophils % (0.8-7.0) % Basophils % (0.2-1.2) % Absolute Granulocytes (1.78-5.38) x10^3/uL Basophils # (0.01-0.08) x10^3/uL Sodium 139 (135-145) mmol/L Potassium 3.3 L (3.5-5.1) mmol/L Chloride 105 (98-107) mmol/L Carbon Dioxide 29 (22-30) mmol/L Anion Gap 8.2 (5-15) MEQ/L BUN 7 L (9-20) mg/dL Creatinine 0.74 (0.66-1.25) mg/dL Estimated GFR 100.6 ML/MIN Glucose 109 H (74-106) mg/dL Calcium 8.8 (8.4-10.2) mg/dL Total Bilirubin 0.50 (0.2-1.3) mg/dL AST 43 (17-59) U/L ALT 29 (0-50) U/L Alkaline Phosphatase 83 (38-126) U/L Serum Total Protein 7.1 (6.3-8.2) g/dL Albumin 3.6 (3.5-5.0) g/dL Slides for Path Review Multi-Disciplinary Progress Notes: Multi-Disciplinary Progress Notes 01/30/24 11:30 (created 01/30/24 13:29) Case Management Note by Sherry Min S/W PATIENT- HE CONTINUES TO DENY ANY NEW NEEDS AT TIME OF DC. HE PLANS TO RETURN HOME TO HIS PLF AT TIME OF DC Initialized on 01/30/24 13:29 - END OF NOTE Assessment/Plan (1) Sepsis Current Visit: Yes Status: Acute Assessment & Plan: -meets criteria with tachycardia, hypotension, leukocytosis, UTI, LIZ -severe -WBC at 21.5 on admission -UA suspicious for UTI -LA WNL -Patient given 1L fluid bolus -Ceftriaxone given in ED, will continue with 2g Rocephin -Supplemental oxygen as needed for goal spo2 > 90% -CXR with no acute findings -continue IVF -Strict I&O -Target MAP > 65mmHg -Consider norepinephrine drip if patient remains hypotensive/map<65 -Stress ulcer PPI with protonix 01/28: -WBC downtrending 17.7<21.5 -Continue Ceftriaxone - follow ucult -BP stable 01/29: WBC 13.1<17.7<21.5 - improving -no longer hypotensive -ucult with gram - ID, sens pending - continue ceftriaxone for now - continue IVF 01/30: -No longer meets criteria -WBC now WNL (2) UTI (urinary tract infection) Current Visit: Yes Status: Acute Assessment & Plan: -treat with Rocephin empirically- follow cultures Code(s): N39.0 - URINARY TRACT INFECTION, SITE NOT SPECIFIED (3) LIZ (acute kidney injury) Current Visit: Yes Status: Acute Assessment & Plan: -Most likely secondary to infection/hypovolemia -Avoid QUINTON/ARB/Nsaids -IVF -Monitor I&O's -Bladder scan for residual 01/29/24: -Resoved Code(s): N17.9 - ACUTE KIDNEY FAILURE, UNSPECIFIED (4) Fall with no significant injury Current Visit: Yes Status: Acute Assessment & Plan: -CT scan without contrast of cervical spine shows no acute fracture or subluxation. There is mild bilateral TMJ degenerative changes. -CT scan of the head without contrast shows paranasal sinus disease. Remainder of the study is within normal limits -Left shoulder x-ray no acute fracture or dislocation -Lumbar spine x-ray mild multilevel thoracolumbar degenerative changes without acute fracture or subluxation -Bilateral hip/pelvic x-ray no acute fracture or dislocation -Orthostatic vitals -med review -according to family report patient does not take medications as prescribed often overdoses -echo -consider -?infective etiology 2/2 to sepsis Code(s): W19.XXXA - UNSPECIFIED FALL, INITIAL ENCOUNTER (5) Hypokalemia Current Visit: Yes Status: Acute Assessment & Plan: -Received 20meq IV in ED, will replenish per protocol -tele 01/28: -Resolved 01/29: -potassium low at 3.3 this morning- replenish per protocol Code(s): E87.6 - HYPOKALEMIA (6) Hypomagnesemia Current Visit: Yes Status: Acute Assessment & Plan: -Given 1g in ED - repeat in a.m. 01/28: -Resolved Code(s): E83.42 - HYPOMAGNESEMIA (7) Hypotension Current Visit: Yes Status: Acute Assessment & Plan: -stable after fluid resuscitation - hold BP meds for now- continue IVF - see sepsis -med review 01/29: -Resolved - resume amlodipine Code(s): I95.9 - HYPOTENSION, UNSPECIFIED (8) History of kidney stones Current Visit: Yes Status: Acute Assessment & Plan: -recent surgical intervention last month with stones removed from both right and left ureter -Bladder scan -KUB 01/28: -KUB showing bilateral renal micro-calculi, largest left lower pole measuring 6- 7 mm. 6 x 9 mm right pelvic inlet ureteral calculus versus phlebolith -CT ab/pelvis ordered 01/28: -CT showing 5-6 mm distal left ureteral calculus producing partial obstruction -strain urine -continue IVF/flomax -repeat KUB in 24 hours 01/29: -Continue to strain urine - dark grit reported by overnight RN -repeat KUB tomorrow (2) UTI (urinary tract infection) Current Visit: Yes Status: Acute Code(s): N39.0 - URINARY TRACT INFECTION, SITE NOT SPECIFIED (3) LIZ (acute kidney injury) Current Visit: Yes Status: Acute Code(s): N17.9 - ACUTE KIDNEY FAILURE, U NSPECIFIED (4) Fall with no significant injury Current Visit: Yes Status: Acute Code(s): W19.XXXA - UNSPECIFIED FALL, INITIAL ENCOUNTER (5) Hypokalemia Current Visit: Yes Status: Acute Code(s): E87.6 - HYPOKALEMIA (6) Hypomagnesemia Current Visit: Yes Status: Acute Code(s): E83.42 - HYPOMAGNESEMIA (7) Hypotension Current Visit: Yes Status: Acute Code(s): I95.9 - HYPOTENSION, UNSPECIFIED (8) History of kidney stones Current Visit: Yes Status: Acute Code(s): Z87.442 - PERSONAL HISTORY OF URINARY CALCULI
[2024-01-31 07:09] VITALS: RESP 18
[2024-01-31] MEDS: Klor Con PO SCH (07:25)
--- NOTE | 2024-01-31 11:12 | XRAY ---
CLINICAL HISTORY: kidney stones COMPARISON: 01/28/2024 KUB TECHNIQUE: X-ray of abdomen,1 AP views FINDINGS: Oval-shaped few opacities (measuring approx.1.4x1 cm) were seen projecting over gastric and ascending colon gaseous content, likely radio-opaque pills. Gaseous distention of stomach and colon segments limits assessment of urinary system tolbert, yet a few millimetric opacities up to 5-6 mm in both kidneys are identified, suggesting kidney stones. Two opacities overlying both the sacral half and inferior pelvis might be related to phleboliths. Spondylodegenerative changes were seen in the visualized spine with mild rightward curvature of the lumbar spine. Additionally, mild degenerative changes of both hips and symphysis pubis joints. IMPRESSION: 1. A few millimetric opacities up to 5-6 mm overlies both kidneys (no interval change), suggesting kidney stones. US examination and CT/CT pyrography are advised for further evaluation of ureters if clinically required. 2. Oval-shaped opacities projecting over gastric and ascending colon, likely radio-opaque pills. Electronically Signed by: Sherrie Comer MD. (01/31/2024 11:08:29 EDT)
--- NOTE | 2024-01-31 11:54 | PCM.DS ---
Discharge Summary Date of Admission: 01/28/24 13:27 Date of Discharge: 01/31/24 Admitting Physician: BIANCA MANE MD Primary Care Provider: EVAN MOISE DO Allergies Allergies lisinopril Adverse Reaction (Severe, Verified 01/29/24 10:34) Swelling of Tongue and Lips bandaid Allergy (Mild, Uncoded 01/29/24 10:34) Rash Hospital Summary - Hospital Course Hospital Course: HPI: Mr.MCMULLEN BRYSON is a 63 year old male with a pmhx of kidney stones, MO, CAD, Stroke, HTN, and MT who presented to ED 01/28/24 after experiencing several (7 x per pt report) falls at home. He reports that he has had ongoing hypotension and has been worked up OP by his PCP who has cut one of his BP meds in half (unsure of the name). Patient had a systolic blood pressure of 74 at home when the paramedics arrived to bring him to the emergency department. Patient arrives to the emergency department with intravenous normal saline running and his systolic blood pressure on arrival is 94. He also reports that he has noticed frequency with urination, hematuria, and right flank pain. Patient states that he had stones removed from both right and left ureters last month with Dr. Barahona/[facility]. He states that one of his fall was resultant from him slipping on urine after he attempted to edwards to the bathroom to urinate but did not make it in time. Upon arrival to ED, patient was tachycardic and hypotensive. CT scan without contrast of cervical spine shows no acute fracture or subluxation. There is mild bilateral TMJ degenerative changes. CT scan of the head without contrast shows paranasal sinus disease. Remainder of the study is within normal limits. CXR with no acute findings. Left shoulder x-ray no acute fracture or dislocation. Lumbar spine x-ray mild multilevel thoracolumbar degenerative changes without acute fracture or subluxation. Bilateral hip/pelvic x-ray no acute fracture or dislocation. KUB showing bilateral renal micro-calculi, largest left lower pole measuring 6-7 mm. 6 x9 mm right pelvic inlet ureteral calculus versus phlebolith. CT remarkable for 5-6 mm distal left ureteral calculus producing partial obstruction. Lab findings remarkable for leukocytosis with WBC at 21.5, macrocytic anemia with hgb at 11.2, hypokalemia at 2.8, hypomagnesemia at 1.3, LIZ with creat at 1.71 (baseline around 0.87), and BNP at 3030. Admit for urosepsis/LIZ/hypokalemia/hypomagnesemia. PVR with minimal residual. IP treatment with ceftriaxone. LIZ has resolved. Hypotension has resolved - BP meds resumed and now stable. WBC now normal. Ucult with klebsiella oxytoca - sensitivity to ceftriaxone- will dismiss on levaquin. Patient does continue to have rib pain from fall with planned OP appt with pain management. Will send home with 3 days of norco. Advised follow up with urology for evaluation of kidney stones - appt made. Discharge Note New Diagnosis: Urosepsis New Medications: Levaquin Follow Up: PCP/urology Latest Assessment & Plan (1) Sepsis Current Visit: Yes Status: Acute Assessment & Plan: -meets criteria with tachycardia, hypotension, leukocytosis, UTI, LIZ -severe -WBC at 21.5 on admission -UA suspicious for UTI -LA WNL -Patient given 1L fluid bolus -Ceftriaxone given in ED, will continue with 2g Rocephin -Supplemental oxygen as needed for goal spo2 > 90% -CXR with no acute findings -continue IVF -Strict I&O -Target MAP > 65mmHg -Consider norepinephrine drip if patient remains hypotensive/map<65 -Stress ulcer PPI with protonix 01/28: -WBC downtrending 17.7<21.5 -Continue Ceftriaxone - follow ucult -BP stable 01/29: WBC 13.1<17.7<21.5 - improving -no longer hypotensive -ucult with gram - ID, sens pending - continue ceftriaxone for now - continue IVF 01/30: -No longer meets criteria -WBC now WNL (2) UTI (urinary tract infection) Current Visit: Yes Status: Acute Assessment & Plan: -treat with Rocephin empirically- follow cultures Code(s): N39.0 - URINARY TRACT INFECTION, SITE NOT SPECIFIED (3) LIZ (acute kidney injury) Current Visit: Yes Status: Acute Assessment & Plan: -Most likely secondary to infection/hypovolemia -Avoid QUINTON/ARB/Nsaids -IVF -Monitor I&O's -Bladder scan for residual 01/29/24: -Resoved Code(s): N17.9 - ACUTE KIDNEY FAILURE, UNSPECIFIED (4) Fall with no significant injury Current Visit: Yes Status: Acute Assessment & Plan: -CT scan without contrast of cervical spine shows no acute fracture or sublu xation. There is mild bilateral TMJ degenerative changes. -CT scan of the head without contrast shows paranasal sinus disease. Remainder of the study is within normal limits -Left shoulder x-ray no acute fracture or dislocation -Lumbar spine x-ray mild multilevel thoracolumbar degenerative changes without acute fracture or subluxation -Bilateral hip/pelvic x-ray no acute fracture or dislocation -Orthostatic vitals -med review -according to family report patient does not take medications as pr escribed often overdoses -echo -consider -?infective etiology 2/ to sepsis Code(s): W19.XXXA - UNSPECIFIED FALL, INITIAL ENCOUNTER (5) Hypokalemia Current Visit: Yes Status: Acute Assessment & Plan: -Received 20meq IV in ED, will replenish per protocol -tele 01/28: -Resolved 01/29: -potassium low at 3.3 this morning- replenish per protocol Code(s): E87.6 - HYPOKALEMIA (6) Hypomagnesemia Current Visit: Yes Status: Acute Assessment & Plan: -Given 1g in ED - repeat in a.m. 01/28: -Resolved Code(s): E83.42 - HYPOMAGNESEMIA (7) Hypotension Current Visit: Yes Status: Acute Assessment & Plan: -stable after fluid resuscitation - hold BP meds for now- continue IVF - see sepsis -med review 01/29: -Resolved - resume amlodipine 01/30: -amlodipine/losartan resumed - bp now stable Code(s): I95.9 - HYPOTENSION, UNSPECIFIED (8) History of kidney stones Current Visit: Yes Status: Acute Assessment & Plan: -recent surgical intervention last month with stones removed from both right and left ureter -Bladder scan -KUB 01/28: -KUB showing bilateral renal micro-calculi, largest left lower pole measuring 6- 7 mm. 6 x 9 mm right pelvic inlet ureteral calculus versus phlebolith -CT ab/pelvis ordered 01/28: -CT showing 5-6 mm distal left ureteral calculus producing partial obstruction -strain urine -continue IVF/flomax -repeat KUB in 24 hours 9/18: -Continue to strain urine - dark grit reported by overnight RN -repeat KUB tomorrow 01/30: -Patient to follow up with [facility] as OP - appt made - continue home meds I spent 35 minutes [id number] with the patient on the day of discharge performing discharge exam, discussing hospital stay and discharge instructions with patient and caregivers, preparation of discharge records, prescriptions & referral forms and addressing any questions/concerns the patient had as documented above. - Vitals & Intake/Output Vital Signs: Vital Signs Temperature 99.3 F 01/31/24 07:08 Pulse Rate 82 01/31/24 08:09 Respiratory Rate 18 01/31/24 07:08 Blood Pressure 134/90 01/31/24 08:09 O2 Sat by Pulse Oximetry 92 L 01/31/24 07:08 Intake & Output: Intake & Output 01/28/24 01/29/24 01/30/24 01/31/24 11:59 11:59 11:59 11:59 Intake Total 600 2983 5525 Output Total 4209 5960 5258 Balance -2413 -2176 260 Weight 97.5 kg 98.3 kg 96.2 kg 92.8 kg - Lab Result Diagrams: 01/31/24 04:34 01/31/24 04:34 Lab Results-Last 24 Hrs: Lab Results-Last 24 Hours 01/31/24 01/31/24 01/31/24 Range/Units 04:34 04:34 04:34 WBC 8.4 (4.23-9.07) x10^3/uL RBC 3.83 L (4.63-6.08) x10^6/uL Hgb 12.1 L (13.7-17.5) g/dL Hct 35.5 L (40.1-51.0) % MCV 92.7 H (79.0-92.2) fL MCH 31.6 (25.7-32.2) pg MCHC 34.1 (32.3-36.5) g/dL RDW 13.8 (11.6-14.4) % Plt Count 162 L (163-337) x10^3/uL MPV 9.4 (9.4-12.4) fL Gran % 72.9 H (34.0-67.9) % Immature Gran % (Auto) 0.5 H (0.001-0.429) % Nucleat RBC Rel Count 0.0 (0.00-0.2) % Eos # (Auto) 0.16 (0.04-0.54) x10^3/uL Immature Gran # (Auto) 0.04 H (0.001-0.031) x10^3u/L Absolute Lymphs (auto) 1.21 L (1.32-3.57) x10^3/uL Absolute Monos (auto) 0.82 (0.30-0.82) x10^3/uL Absolute Nucleated RBC 0.00 (0.00-0.012) x10^3u/L Lymphocytes % 14.5 L (21.8-53.1) % Monocytes % 9.8 (5.3-12.2) % Eosinophils % 1.9 (0.8-7.0) % Basophils % 0.4 (0.2-1.2) % Absolute Granulocytes 6.10 H (1.78-5.38) x10^3/uL Basophils # 0.03 (0.01-0.08) x10^3/uL Sodium 139 (135-145) mmol/L Potassium 3.3 L (3.5-5.1) mmol/L Chloride 105 (98-107) mmol/L Carbon Dioxide 29 (22-30) mmol/L Anion Gap 8.2 (5-15) MEQ/L BUN 7 L (9-20) mg/dL Creatinine 0.74 (0.66-1.25) mg/dL Estimated GFR 100.6 ML/MIN Glucose 109 H (74-106) mg/dL POC Glucometer (74 to 106) mg/dL Calcium 8.8 (8.4-10.2) mg/dL Magnesium 1.9 (1.6-2.3) mg/dL Total Bilirubin 0.50 (0.2-1.3) mg/dL AST 43 (17-59) U/L ALT 29 (0-50) U/L Alkaline Phosphatase 83 (38-126) U/L Serum Total Protein 7.1 (6.3-8.2) g/dL Albumin 3.6 (3.5-5.0) g/dL 01/31/24 Range/Units 06:54 WBC (4.23-9.07) x10^3/uL RBC (4.63-6.08) x10^6/uL Hgb (13.7-17.5) g/dL Hct (40.1-51.0) % MCV (79.0-92.2) fL MCH (25.7-32.2) pg MCHC (32.3-36.5) g/dL RDW (11.6-14.4) % Plt Count (163-337) x10^3/uL MPV (9.4-12.4) fL Gran % (34.0-67.9) % Immature Gran % (Auto) (0.001-0.429) % Nucleat RBC Rel Count (0.00-0.2) % Eos # (Auto) (0.04-0.54) x10^3/uL Immature Gran # (Auto) (0.001-0.031) x10^3u/L Absolute Lymphs (auto) (1.32-3.57) x10^3/uL Absolute Monos (auto) (0.30-0.82) x10^3/uL Absolute Nucleated RBC (0.00-0.012) x10^3u/L Lymphocytes % (21.8-53.1) % Monocytes % (5.3-12.2) % Eosinophils % (0.8-7.0) % Basophils % (0.2-1.2) % Absolute Granulocytes (1.78-5.38) x10^3/uL Basophils # (0.01-0.08) x10^3/uL Sodium (135-145) mmol/L Potassium (3.5-5.1) mmol/L Chloride (98-107) mmol/L Carbon Dioxide (22-30) mmol/L Anion Gap (5-15) MEQ/L BUN (9-20) mg/dL Creatinine (0.66-1.25) mg/dL Estimated GFR ML/MIN Glucose (74-106) mg/dL POC Glucometer 99 (74 to 106) mg/dL Calcium (8.4-10.2) mg/dL Magnesium (1.6-2.3) mg/dL Total Bilirubin (0.2-1.3) mg/dL AST (17-59) U/L ALT (0-50) U/L Alkaline Phosphatase (38-126) U/L Serum Total Protein (6.3-8.2) g/dL Albumin (3.5-5.0) g/dL Micro Results-Entire Visit: Microbiology 01/29/24 09:53 Urine Culture - Final Urine, Void Klebsiella Oxytoca 01/28/24 12:15 Blood Culture - Preliminary Blood - Radiology Exams Ordered Rad Exams-Entire Visit: Radiology Procedures Category Date Time Status CHEST 2 VIEWS (PA AND LAT) Stat Exams 01/31/24 08:45 Taken KUB Stat Exams 01/31/24 08:00 Completed - Procedures and Test Procedures and Tests throughout Hospitalization: Therapy Orders & Screens 01/28/24 14:24 Oxygen NASAL CANNULA 2 lpm Comment: Diagnosis: Urosepsis 01/28/24 17:28 OT Screen per Nursing Assess ONCE Comment: Protocol Order Physician Instructions: Greater than 3 points order OT Admission Screening Reason For Exam: Triggered on Admission Diagnosis: Urosepsis Open Wound/Cellutlitis/Pressure Ulcers: No Acute Fx/ORIF/Change in wt bearing status: No Severe MUSCULOSKELETAL pain: Yes: left shoulder ADL Dysfunction: Yes: left shoulder Acute CVA w/Hemiparesis/Hemiplegia: No Decreased Functional Mobility/Strength: Yes: LUE Sprain/Strain: No Acute Post-op Mobility Dysfunction: No Total Points: 9 PT Screen per Nursing Assess ONCE Comment: Protocol Order Physician Instructions: Greater than 3 points order PT Admission Screenin Reason For Exam: Triggered on Admission Diagnosis: Urosepsis Open Wound/Cellutlitis/Pressure Ulcers: No Acute Fx/ORIF/Change in wt bearing status: No Severe MUSCULOSKELETAL pain: Yes: left shoulder ADL Dysfunction: Yes: left shoulder Acute CVA w/Hemiparesis/Hemiplegia: No Decreased Functional Mobility/Strength: Yes: LUE Sprain/Strain: No Acute Post-op Mobility Dysfunction: No Total Points: 9 01/29/24 08:22 PT Eval & Treat (MD Order) ONCE Reason for Eval:: Several falls at home, generalized weakness Diagnosis: Urosepsis OT Eval and Treat (MD Order) ONCE Comment: Physician Instructions: Reason For Exam: Diagnosis: Urosepsis 01/31/24 10:23 EKG ROUTINE Comment: Diagnosis: Urosepsis Discharge Exam General Appearance: no apparent distress Neurologic Exam: alert, oriented x 3, cooperative Eye Exam: PERRL Ears, Nose, Throat Exam: normal ENT inspection Neck Exam: normal inspection Respiratory Exam: normal breath sounds, lungs clear Cardiovascular Exam: regular rate/rhythm, normal heart sounds Gastrointestinal/Abdomen Exam: normal bowel sounds Male Genitalia Exam: deferred Rectal Exam: deferred Back Exam: normal inspection Extremity Exam: normal inspection Skin Exam: normal color Wound Assessment: Skin/Wound Assessment Wound/Incision Assessment Start: 01/28/24 15:19 Text: Status: Active Freq: Q6H Protocol: Document 01/31/24 07:38 [facility] (Rec: 01/31/24 07:39 [facility] [id number]) Wound/Incision Assessment Anterior Face Wound Assessment Shift Assessment Wound Type Knot Wound Stage Non Pressure Wound Drainage Amount None General Appearance Open to air Comment Right upper eye knot Left Elbow Wound Assessment Shift Assessment Wound Type Abrasion Wound Stage Non Pressure Wound Drainage Amount None General Appearance Open to air Posterior Shoulder Wound Assessment Shift Assessment Wound Type Abrasion Wound Stage Non Pressure Wound Drainage Amount None General Appearance Open to air Wound Photo Photo Taken No Final Diagnosis/Problem List - Final Discharge Diagnosis/Problem (1) Sepsis Current Visit: Yes Status: Resolved (2) UTI (urinary tract infection) Current Visit: Yes Status: Acute Code(s): N39.0 - URINARY TRACT INFECTION, SITE NOT SPECIFIED (3) LIZ (acute kidney injury) Current Visit: Yes Status: Resolved Code(s): N17.9 - ACUTE KIDNEY FAILURE, UNSPECIFIED (4) Fall with no significant injury Current Visit: Yes Status: Acute Code(s): W19.XXXA - UNSPECIFIED FALL, I NITIAL ENCOUNTER (5) Hypokalemia Current Visit: Yes Status: Resolved Code(s): E87.6 - HYPOKALEMIA (6) Hypomagnesemia Current Visit: Yes Status: Resolved Code(s): E83.42 - HYPOMAGNESEMIA (7) Hypotension Current Visit: Yes Status: Resolved Code(s): I95.9 - HYPOTENSION, UNSPECIFIED (8) History of kidney stones Current Visit: Yes Status: Chronic Code(s): Z87.442 - PERSONAL HISTORY OF URINARY CALCULI - Discharge Disposition: Home, Self-Care Condition: Fair Prescriptions: New Hydrocodone/Acetaminophen [Hydrocodone-Acetamin 5-325 mg] 1 tab PO Q6HPRN PRN 3 Days #12 tablet MDD 4 PRN Reason: Pain levoFLOXacin [Levofloxacin] 750 mg PO DAILY 7 Days #7 tablet Continue Trazodone HCl 50 mg [Desyrel 50 mg] 50 mg PO HS Furosemide 20 mg [Lasix 20 mg] 20 mg PO DAILY Atorvastatin Calcium [Lipitor 40Mg] 40 mg PO DAILY Gabapentin [Neurontin] 800 mg PO TID Amlodipine Besylate 5 mg [Norvasc 5 mg] 5 mg PO DAILY Tamsulosin HCl 0.4 mg [Flomax 0.4 MG] 0.4 mg PO DAILY Vibegron [Gemtesa] 75 mg PO HS Fenofibrate 54 mg PO DAILY Mirabegron [Myrbetriq] 50 mg PO DAILY Aspirin [Adult Low Dose Aspirin EC] 81 mg PO DAILY Losartan Potassium 100 mg PO DAILY Potassium Chloride 20 meq PO DAILY Follow up with: EVAN MOISE DO [Primary Care Provider] - 02/12/24 3:00 pm SAVANNAH PETE NP [[employer] STAFF] - 02/04/24 9:00 am
--- NOTE | 2024-01-31 16:10 | XRAY ---
CLINICAL HISTORY: SOB COMPARISON: prior X-ray dated 01/28/2024. TECHNIQUE: X-ray of the chest was performed in 2 views: PA, and lateral views. FINDINGS: Prominent bronchial markings in both lung tolbert with peribronchial thickening mainly in the right lower zone showing interstitial infiltrates suggesting chest infection. There is a liner opacity overlies in the right middle zone corresponds to atelectatic changes. No hydrothorax or pneumothorax seen. No fracture seen. The brown are normal in size and position. Blunting of the right costophrenic and cardiophrenic angles is likely due to mild effusion. Mild cardiomegaly is noted. The bony thorax shows degenerative changes. IMPRESSION: 1. Prominent bronchial markings in both lung tolbert with peribronchial thickening mainly in the right lower zone showing interstitial infiltrates suggesting chest infection. Would recommend clinical and lab correlation. X-ray follow-up is advised. New findings. 2. There is a liner opacity overlies in the right middle zone corresponds to atelectatic changes. New findings. 3. Blunting of the right costophrenic and cardiophrenic angles is likely due to mild effusion vs pleural thickening. New findings. Electronically Signed by: Sherrie Comer MD. (01/31/2024 16:05:24 EDT)
[2024-01-31 16:54] VITALS: BP 156/92; PULSE 74; TEMP 98.2; O2SAT 93
== END 2024-01-31 17:05 | disposition home or self-care (01) | DRG 872 ==
LOC: ED 08:12 → MED SURG 13:27 → OBSVTOIN 13:27
PROVIDERS: ADMIT Internal Medicine; ATTEND Internal Medicine
DX: A41.9 Sepsis, unspecified organism (principal); N39.0 Urinary tract infection, site not specified; N17.9 Acute kidney failure, unspecified; W19.XXXA Unspecified fall, initial encounter; E87.6 Hypokalemia; E83.42 Hypomagnesemia; I95.9 Hypotension, unspecified; R29.6 Repeated falls; I25.2 Old myocardial infarction; I25.10 Atherosclerotic heart disease of native coronary artery without angina pectoris; Z86.73 Personal history of transient ischemic attack (TIA), and cerebral infarction without residual deficits; I10 Essential (primary) hypertension; D72.829 Elevated white blood cell count, unspecified; Z87.442 Personal history of urinary calculi; Z79.899 Other long term (current) drug therapy
CPT/HCPCS: 0241U; 36415; 70450; 71045; 71046; 72100; 72125; 73030; 73522; 74018; 74176; 80053; 80307; 81001; 82077; 82947; 83605; 83735; 83880; 84132; 84134; 84484; 85025; 86308; 87040; 87077; 87086; 87186; 87651; 93005; 94760; 96360; 96361; 96365; 96367; 97161; 97165; 99285; 99291; J0696; J3475; J3480; A9270-GY

== ENCOUNTER 2024-05-20 03:34 | Observation (INO) | payer MEDICARE ==
--- NOTE | 2024-05-20 04:18 | ERPHSYRPT ---
- History of Present Illness Time Seen by Provider: 05/20/24 04:00 Historian: patient Exam Limitations: no limitations Patient Subjective Stated Complaint: pt states he has chest pain that woke him up Triage Nursing Assessment: pt alert and oriented, answers questions approp. pt arrive per ambulance and transfers to stretcher per self. skin warm and dry. heart rate 54, sinus cheli on monitor. respirations nonlabored with lungs cta bilat. Physician History: 64-year-old male history of [place] stroke presents to our ED via EMS for evaluation of substernal chest pain. Patient received nitroglycerin and aspirin and route to our ED. Chest pain started earlier this morning. Patient observed that he forgot to take his blood pressure medication. He checked his blood pressure observed to be elevated. He took his blood pressure medication waited half hour blood pressure did not improve. Patient called 911. Pain described as an ache that is localized. No radiation. No nausea vomiting or diaphoresis. Pain tends to radiate towards his back. No trauma no fever. Symptoms are mild to moderate in intensity. No specific worsening or improving factors. Patient otherwise feels well. He voices no other complaints or concerns at this time. Portions of this note were created with voice recognition technology. There may be grammatical, spelling, punctuation or sound alike errors Timing/Duration: today Activities at Onset: none Quality: aching Location: substernal Chest Pain Radiation: no radiation Severity of Pain-Max: moderate Severity of Pain-Current: mild Modifying Factors: Improves With: nothing Associated Symptoms: denies symptoms Prior Chest Pain/Cardiac Workup: cardiac cath Nitro Today/Relief: 0.4 mg x 1 Aspirin Treatment Today: 325 mg x 1 Allergies/Adverse Reactions: lisinopril Adverse Reaction (Severe, Verified 05/20/24 03:53) Swelling of Tongue and Lips bandaid Allergy (Mild, Uncoded 05/20/24 03:53) Rash Home Medications: Amlodipine Besylate 5 mg [Norvasc 5 mg] 10 mg PO DAILY 01/28/24 [History] Atorvastatin Calcium [Lipitor 40Mg] 40 mg PO DAILY 01/28/24 [History] Fenofibrate 54 mg PO DAILY 01/28/24 [History] Furosemide 20 mg [Lasix 20 mg] 20 mg PO DAILY 01/28/24 [History] Gabapentin [Neurontin] 800 mg PO TID 01/28/24 [History] Tamsulosin HCl 0.4 mg [Flomax 0.4 MG] 0.4 mg PO DAILY 01/28/24 [History] Trazodone HCl 50 mg [Desyrel 50 mg] 50 mg PO HS 01/28/24 [History] Vibegron [Gemtesa] 75 mg PO HS 01/28/24 [History] Aspirin [Adult Low Dose Aspirin EC] 81 mg PO DAILY 01/29/24 [History] Losartan Potassium 100 mg PO DAILY 01/29/24 [History] Potassium Chloride 20 meq PO DAILY 01/29/24 [History] Metoprolol Tartrate 50 mg [Lopressor 50 MG] 1 tab PO BID 05/20/24 [History] Vit C/E/Zn/Coppr/Lutein/Zeaxan [Preservision Areds 2 Chew Tab] 1 tab PO DAILY 05/20/24 [History] Hx Tetanus, Diphtheria Vaccination/Date Given: Yes Hx Influenza Vaccination/Date Given: Yes Hx Pneumococcal Vaccination/Date Given: Yes Immunizations Up to Date: Yes Travel Risk - International Travel Have you traveled outside of the country in past 3 weeks: No - Emerging Infectious Disease Are you exhibiting symptoms associated with any current EIDs: No - Review of Systems Constitutional: No Symptoms, No Fever, No Chills Eyes: No Symptoms Ears, Nose, & Throat: No Symptoms Respiratory: No Symptoms, No Cough, No Dyspnea Cardiac: No Symptoms, No Chest Pain, No Edema, No Syncope Abdominal/Gastrointestinal: No Symptoms, No Abdominal Pain, No Nausea, No Vomiting, No Diarrhea Genitourinary Symptoms: No Symptoms, No Dysuria Musculoskeletal: No Symptoms, No Back Pain, No Neck Pain Skin: No Symptoms, No Rash Neurological: No Symptoms, No Dizziness, No Focal Weakness, No Sensory Changes Psychological: No Symptoms Endocrine: No Symptoms Hematologic/Lymphatic: No Symptoms Immunological/Allergic: No Symptoms All Other Systems: Reviewed and Negative - Past Medical History Pertinent Past Medical History: Yes Neurological History: Stroke ENT History: Cataracts Cardiac History: Coronary Artery Disease, Myocardial Infarction ([place]), Hypertension Respiratory History: Sleep Apnea, CHF Endocrine Medical History: No Pertinent History Musculoskeletal History: Arthritis GI Medical History: Hernia History: Other Psycho-Social History: Depression Male Reproductive Disorders: No Pertinent History Other Medical History: restless leg sydrome ,incont of urine - Past Surgical History Past Surgical History: Yes Cardiac: Cardiac Catheterization Gastrointestinal: No Pertinent History Genitourinary: Other Musculoskeletal: Orthopedic Surgery Other Surgical History: kidney stone, bilat shoulder surgeries, thumb surgery - Social History Smoking Status: Former smoker Exposure to second hand smoke: No Drug Use: none Patient Lives Alone: No - Social Determinants of Health Will the patient participate in the screening: Declined to provide - Nursing Vital Signs Nursing Vital Signs: Initial Vital Signs Temperature 97.1 F 05/20/24 03:39 Pulse Rate 53 L 05/20/24 03:39 Respiratory Rate 16 05/20/24 03:39 Blood Pressure 154/93 05/20/24 03:39 O2 Sat by Pulse Oximetry 97 05/20/24 03:39 Pain Scale Pain Intensity 5 - Physical Exam General Appearance: no apparent distress, alert Eye Exam: PERRL/EOMI, eyes nml inspection Ears, Nose, Throat Exam: normal ENT inspection, moist mucous membranes Neck Exam: normal inspection, non-tender, supple, full range of motion Respiratory Exam: normal breath sounds, lungs clear, airway intact, No respiratory distress Cardiovascular Exam: regular rate/rhythm, normal heart sounds Gastrointestinal/Abdomen Exam: soft, No tenderness, No mass Back Exam: normal inspection, No CVA tenderness, No vertebral tenderness Extremity Exam: normal inspection, normal range of motion Neurologic Exam: alert, oriented x 3, cooperative, normal mood/affect, sensation nml, No motor deficits Skin Exam: normal color, warm, dry Lymphatic Exam: No adenopathy SpO2 Interpretation: normal SpO2: 97 O2 Delivery: Room Air - Course Nursing assessment & vital signs reviewed: Yes EKG Interpreted by Me: RATE (52), Sinus Rhythm, NORMAL AXIS, NORMAL INTERVALS, NORMAL QRS Ordered Tests: Active Orders 24 hr Category Date Time Status Computer Operations Analyst STAT Care 05/20/24 04:09 Active EKG-ER Only STAT Care 05/20/24 04:08 Active IV Insertion STAT Care 05/20/24 04:08 Active Pulse Oximetry (ED) STAT Care 05/20/24 04:08 Active CHEST 1 VIEW (PORTABLE) Stat Exams 05/20/24 04:08 Completed CBC W DIFF Stat Lab 05/20/24 04:20 Completed CMP Stat Lab 05/20/24 04:20 Completed NT PRO BNPII Stat Lab 05/20/24 06:25 Received TROPONIN Q4H Lab 05/20/24 04:20 Completed TROPONIN Q4H Lab 05/20/24 06:25 Received TROPONIN Q4H Lab 05/20/24 12:15 Ordered UA W/RFX UR CULTURE Stat Lab 05/20/24 03:38 Completed Medication Summary Discontinued Medications Generic Name Dose Route Start Last Admin Trade Name Cait PRN Reason Stop Dose Admin Nitroglycerin 1 gm 05/20/24 04:24 05/20/24 04:34 Nitroglycerin 1 Gm Packet TOP 05/20/24 04:25 1 gm STAT ONE Administration Nitroglycerin Confirm 05/20/24 04:33 Nitroglycerin 1 Gm Packet Administered 05/20/24 04:34 Dose 1 gm .ROUTE .STK-MED ONE Lab/Rad Data: Laboratory Result Diagrams 05/20/24 04:20 05/20/24 04:20 Laboratory Results 05/20/24 05/20/24 05/20/24 Range/Units 04:20 04:20 04:20 WBC 9.9 H (4.23-9.07) x10^3/uL RBC 4.20 L (4.63-6.08) x10^6/uL Hgb 13.0 L (13.7-17.5) g/dL Hct 39.8 L (40.1-51.0) % MCV 94.8 H (79.0-92.2) fL MCH 31.0 (25.7-32.2) pg MCHC 32.7 (32.3-36.5) g/dL RDW 13.2 (11.6-14.4) % Plt Count 186 (163-337) x10^3/uL MPV 8.9 L (9.4-12.4) fL Gran % 71.4 H (34.0-67.9) % Immature Gran % (Auto) 0.4 (0.001-0.429) % Nucleat RBC Rel Count 0.0 (0.00-0.2) % Eos # (Auto) 0.43 (0.04-0.54) x10^3/uL Immature Gran # (Auto) 0.04 H (0.001-0.031) x10^3u/L Absolute Lymphs (auto) 1.23 L (1.32-3.57) x10^3/uL Absolute Monos (auto) 1.06 H (0.30-0.82) x10^3/uL Absolute Nucleated RBC 0.00 (0.00-0.012) x10^3u/L Lymphocytes % 12.5 L (21.8-53.1) % Monocytes % 10.8 (5.3-12.2) % Eosinophils % 4.4 (0.8-7.0) % Basophils % 0.5 (0.2-1.2) % Absolute Granulocytes 7.04 H (1.78-5.38) x10^3/uL Basophils # 0.05 (0.01-0.08) x10^3/uL Sodium 141 (135-145) mmol/L Potassium 4.2 (3.5-5.1) mmol/L Chloride 104 (98-107) mmol/L Carbon Dioxide 36 H (22-30) mmol/L Anion Gap 5.2 (5-15) MEQ/L BUN 10 (9-20) mg/dL Creatinine 1.00 (0.66-1.25) mg/dL Estimated GFR 83.0 ML/MIN Glucose 104 (74-106) mg/dL Calcium 9.3 (8.4-10.2) mg/dL Total Bilirubin 0.50 (0.2-1.3) mg/dL AST 88 H (17-59) U/L ALT 40 (0-50) U/L Alkaline Phosphatase 62 (38-126) U/L Troponin I < 0.012 (0.000-0.033) ng/mL Serum Total Protein 6.6 (6.3-8.2) g/dL Albumin 3.6 (3.5-5.0) g/dL Urine Color (Yellow) Urine Appearance (Clear) Urine pH (4.6-8.0) Ur Specific [place] (1.005-1.030) Urine Protein (Negative) Urine Glucose (UA) (Negative) mg/dL Urine Ketones (Negative) Urine Blood (Negative) Urine Nitrite (Negative) Urine Bilirubin (Negative) Urine Urobilinogen (0.2) mg/dL Ur Leukocyte Esterase (Negative) U Hyaline Cast (Auto) (0-2) /LPF Urine Microscopic RBC (0-5) /HPF Urine Microscopic WBC (0-5) /HPF Ur Epithelial Cells (None Seen) /HPF Urine Bacteria (None Seen) /HPF Urine Culture Reflexed (NO) 05/20/24 Range/Units 03:38 WBC (4.23-9.07) x10^3/uL RBC (4.63-6.08) x10^6/uL Hgb (13.7-17.5) g/dL Hct (40.1-51.0) % MCV (79.0-92.2) fL MCH (25.7-32.2) pg MCHC (32.3-36.5) g/dL RDW (11.6-14.4) % Plt Count (163-337) x10^3/uL MPV (9.4-12.4) fL Gran % (34.0-67.9) % Immature Gran % (Auto) (0.001-0.429) % Nucleat RBC Rel Count (0.00-0.2) % Eos # (Auto) (0.04-0.54) x10^3/uL Immature Gran # (Auto) (0.001-0.031) x10^3u/L Absolute Lymphs (auto) (1.32-3.57) x10^3/uL Absolute Monos (auto) (0.30-0.82) x10^3/uL Absolute Nucleated RBC (0.00-0.012) x10^3u/L Lymphocytes % (21.8-53.1) % Monocytes % (5.3-12.2) % Eosinophils % (0.8-7.0) % Basophils % (0.2-1.2) % Absolute Granulocytes (1.78-5.38) x10^3/uL Basophils # (0.01-0.08) x10^3/uL Sodium (135-145) mmol/L Potassium (3.5-5.1) mmol/L Chloride (98-107) mmol/L Carbon Dioxide (22-30) mmol/L Anion Gap (5-15) MEQ/L BUN (9-20) mg/dL Creatinine (0.66-1.25) mg/dL Estimated GFR ML/MIN Glucose (74-106) mg/dL Calcium (8.4-10.2) mg/dL Total Bilirubin (0.2-1.3) mg/dL AST (17-59) U/L ALT (0-50) U/L Alkaline Phosphatase (38-126) U/L Troponin I (0.000-0.033) ng/mL Serum Total Protein (6.3-8.2) g/dL Albumin (3.5-5.0) g/dL Urine Color Yellow (Yellow) Urine Appearance Clear (Clear) Urine pH 7.0 (4.6-8.0) Ur Specific [place] 1.010 (1.005-1.030) Urine Protein Negative (Negative) Urine Glucose (UA) Negative (Negative) mg/dL Urine Ketones Negative (Negative) Urine Blood Negative (Negative) Urine Nitrite Negative (Negative) Urine Bilirubin Negative (Negative) Urine Urobilinogen 0.2 (0.2) mg/dL Ur Leukocyte Esterase Negative (Negative) U Hyaline Cast (Auto) NONE SEEN (0-2) /LPF Urine Microscopic RBC 0-2 (0-5) /HPF Urine Microscopic WBC 3-5 (0-5) /HPF Ur Epithelial Cells None Seen (None Seen) /HPF Urine Bacteria None Seen (None Seen) /HPF Urine Culture Reflexed NO (NO) - Progress Progress: improved Air Movement: good Progress Note: 64-year-old male significant cardiovascular history including stroke and [place] p resents for emergency department for evaluation of chest pain. Physical exam essentially nonremarkable. EKG sinus rhythm. Initial troponin negative. Patient received aspirin and nitro and route via EMS. In light of patient's significant cardiovascular history patient will be admitted for cardiac rule out. Plan of care discussed with patient. He agrees to admission at [facility] for further evaluation and treatment. Portions of this note were created with voice recognition technology. There may be grammatical, spelling, punctuation or sound alike errors Complexity of problem addressed is moderate acute complicated. No critical care time. Complex of data reviewed and analyzed is extensive. Test ordered test reviewed results analyzed and correlated clinically with history and physical exam. Management discussed with hospitalist who excepts admission to observation. Risk of complication and or risk of morbidity/mortality of patient management is high. Patient requires hospitalization for further evaluation and treatment. Vital stable. Time spent to admit patient is approximately 20 minutes. Plan of care established for shared decision making. No social determinants of health present to impede follow-up. Portions of this note were created with voice recognition technology. There may be grammatical, spelling, punctuation or sound alike errors 05/20/24 06:48 Blood Culture(s) Obtained: No Antibiotics given: No Counseled pt/family regarding: lab results, diagnosis, rad results - Departure Departure Disposition: Observation Clinical Impression: ACS (acute coronary syndrome), Chest pain Condition: Stable Critical Care Time: No Referrals: EVAN MOISE DO [Primary Care Provider] - Follow up/PCP as directed
[2024-05-20 04:24] LABS: Absolute Neutrophil Ct (ANC) 7.04 x10^3/uL (1.78-5.38); BASOPHIL % 0.5 % (0.2-1.2); Basophil (Absolute #) 0.05 x10^3/uL (0.01-0.08); Eosinophil % 4.4 % (0.8-7.0); Eosinophil (Absolute #) 0.43 x10^3/uL (0.04-0.54); Hematocrit 39.8 % (40.1-51.0); IMMATURE GRAN # 0.04 x10^3u/L (0.001-0.031); IMMATURE GRAN % 0.4 % (0.001-0.429); Lymphocyte (Absolute #) 1.23 x10^3/uL (1.32-3.57); Lymphocytes % 12.5 % (21.8-53.1); Mean Cell Volume 94.8 fL (79.0-92.2); Mean Corpuscular Hgb Concent. 32.7 g/dL (32.3-36.5); Mean Platelet Volume 8.9 fL (9.4-12.4); Monocyte (Absolute #) 1.06 x10^3/uL (0.30-0.82); Monocytes % 10.8 % (5.3-12.2); Neutrophil % 71.4 % (34.0-67.9); Platelet Count 186 x10^3/uL (163-337); Red Cell Distribution Width 13.2 % (11.6-14.4); White Blood Count 9.9 x10^3/uL (4.23-9.07)
[2024-05-20] MEDS ORDERED: NITRO-BID 2% UD PACKETS ONE (04:33)
[2024-05-20] MEDS: NITRO-BID 2% UD PACKETS TOP ONE (04:34)
[2024-05-20 04:46] LABS: ALBUMIN 3.6 g/dL (3.5-5.0); ANION GAP 5.2 MEQ/L (5-15); BILIRUBIN,TOTAL 0.5 mg/dL (0.2-1.3); Calcium 9.3 mg/dL (8.4-10.2); Potassium 4.2 mmol/L (3.5-5.1); Total Protein 6.6 g/dL (6.3-8.2)
--- NOTE | 2024-05-20 05:11 | XRAY ---
CLINICAL HISTORY: pain COMPARISON: 01/31/2024. TECHNIQUE: X-ray of the chest was performed AP view. FINDINGS: Bilateral perihilar prominent broncho vascular markings in both lung tolbert mainly in the right lower zone. No hydrothorax or pneumothorax was seen. Both CP angles are clear. Mild cardiomegaly is noted. The bony thorax shows degenerative changes. IMPRESSION: 1. No significant interval changes were noted in comparison with 01/31/2024. 2. Bilateral perihilar prominent broncho vascular markings in both lung tolbert mainly in the right lower zone suggesting vascular congestion. Electronically Signed by: Sherrie Comer MD. (05/20/2024 05:07:06 EST)
[2024-05-20 05:14] LABS: Appearance Clear (Clear); Bacteria None Seen /HPF (None Seen); Bilirubin Negative (Negative); Blood Negative (Negative); Epithelial Cells None Seen /HPF (None Seen); Glucose, Urine Negative (Negative); Hyaline Casts NONE SEEN /LPF (0-2); Ketones Negative (Negative); Leukocyte Esterase Negative (Negative); Nitrite Negative (Negative); Protein,Urine Dip Negative (Negative); RBC 0-2 /HPF (0-5); Urobilinogen 0.2 mg/dL (0.2)
[2024-05-20] MEDS ORDERED: MORPHINE SULFATE 2 MG INJ ONE (06:52)
[2024-05-20] MEDS: MORPHINE SULFATE 2 MG INJ IV ONE (06:53)
[2024-05-20 07:01] LABS: NT PRO BNPII 468 pg/mL (<300); TROPONIN < 0.012 ng/mL (0.000-0.033)
--- NOTE | 2024-05-20 10:59 | PCM.HP ---
History of Present Illness - Chief Complaint Chief Complaint: ACS, Chest pain Date: 05/20/24 History of Present Illness: Mr.MCMULLEN BRYSON is a 64 year old male with a pmhx of seizures, stroke, CAD, [place], HTN, HLD, CHF, MT, and RLS presented to ED 05/20/24 with complaints of left sided chest pain. Patient reports onset of 1 a.m. this morning. Pain is substernal with radiation to the back, constant, and dull/aching in characteristic. He reports laying flat and deep breathing aggravates the pain and laying on his side relieves the pain. He also reports relief with morphine given in ED. He has had associated shortness of breath, mostly with talking. Also has complaints of dysuria x 2 months and states he has kidney stones and was scheduled for surgery this Sunday but due to weather was cancelled. Upon arrival to ED patient mildly bradycardic with HR in the 50's and hypertensive. EKG NS. CXR suggestive of vascular congestion. Lab findings with mild leukocytosis, macrocytic anemia, elevated ddimer, and elevated AST. BNP and trops x 2 unremarkable. Nitro and morphine given in ED which has provided some relief. Plan for admission for ACS r/o. Will consult cardiology, obtain CTA and echo. Repeat EKG in the a.m. Pain control. - Review of Systems Constitutional: No Symptoms Eyes: No Symptoms Ears, Nose, & Throat: No Symptoms Respiratory: Short Of Breath Cardiac: Chest Pain Abdominal/Gastrointestinal: No Symptoms Genitourinary Symptoms: Dysuria Musculoskeletal: Back Pain Skin: No Symptoms Neurological: No Symptoms Psychological: No Symptoms Endocrine: No Symptoms Hematologic/Lymphatic: No Symptoms Immunological/Allergic: No Symptoms Medications & Allergies Home Medications: Home Medication List Amlodipine Besylate 5 mg [Norvasc 5 mg] 10 mg PO DAILY 01/28/24 [History Confirmed 05/20/24] Atorvastatin Calcium [Lipitor 40Mg] 40 mg PO DAILY 01/28/24 [History Confirmed 05/20/24] Fenofibrate 54 mg PO DAILY 01/28/24 [History Confirmed 05/20/24] Furosemide 20 mg [Lasix 20 mg] 20 mg PO DAILY 01/28/24 [History Confirmed 05/20/24] Gabapentin [Neurontin] 800 mg PO TID 01/28/24 [History Confirmed 05/20/24] Tamsulosin HCl 0.4 mg [Flomax 0.4 MG] 0.4 mg PO DAILY 01/28/24 [History Confirmed 05/20/24] Trazodone HCl 50 mg [Desyrel 50 mg] 50 mg PO HS 01/28/24 [History Confirmed 05/20/24] Vibegron [Gemtesa] 75 mg PO HS 01/28/24 [History Confirmed 05/20/24] Aspirin [Adult Low Dose Aspirin EC] 81 mg PO DAILY 01/29/24 [History Confirmed 05/20/24] Losartan Potassium 100 mg PO DAILY 01/29/24 [History Confirmed 05/20/24] Potassium Chloride 20 meq PO DAILY 01/29/24 [History Confirmed 05/20/24] Hydrocodone/Acetaminophen [Hydrocodone-Acetamin 5-325 mg] 1 tab PO Q6HPRN PRN 3 Days #12 tablet MDD 4 01/31/24 [Rx Confirmed 05/20/24] Metoprolol Tartrate 50 mg [Lopressor 50 MG] 1 tab PO BID 05/20/24 [History Confirmed 05/20/24] Vit C/E/Zn/Coppr/Lutein/Zeaxan [Preservision Areds 2 Chew Tab] 1 tab PO DAILY 05/20/24 [History Confirmed 05/20/24] Allergies/Adverse Reactions: Allergies Allergy/AdvReac Type Severity Reaction Status Date / Time lisinopril AdvReac Severe Swelling Verified 05/20/24 07:59 of Tongue and Lips bandaid Allergy Mild Rash Uncoded 05/20/24 03:53 - Past Medical History Past Medical History: Yes Neurological History: Seizures, Stroke ENT History: Cataracts Cardiac History: Coronary Artery Disease, Myocardial Infarction ([place]), Hypertension Respiratory History: Sleep Apnea, CHF Endocrine Medical History: No Pertinent History Musculoskelatal History: Arthritis GI Medical History: Hernia History: Other Pyscho-Social History: Depression Male Reproductive Disorders: No Pertinent History Comment: restless leg sydrome ,incont of urine, GALL STONES - Past Surgical History Past Surgical History: Yes Neuro Surgical History: No Pertinent History Cardiac History: Cardiac Catheterization Respiratory Surgery: No Pertinent History GI Surgical History: No Pertinent History Genitourinary Surgical Hx: Other Musculskeletal Surgical Hx: Orthopedic Surgery Male Surgical History: No Pertinent History Other Surgical History: kidney stone, bilat shoulder surgeries, thumb surgery Significant Family History: cancer, other (stroke) - Social History Smoking Status: Former smoker Exposure to second hand smoke: Yes Alcohol: None Drug Use: none - Social Determinants of Health Will the patient participate in the screening: Yes Do you worry about a steady place to live?: No Do you have any problems with any of the following?: No known problems In the past 12 months,have you had to go without utilities?: No Have you or anyone in your house had to go without enough: No Transportation Issues: No Has anyone in your support network made you feel unsafe?: No Does the patient want assistance with any of the above?: No - Physical Exam Vital Signs: Vital Signs - 24 hr Temp Pulse Pulse Resp BP BP Pulse Ox 05/20/24 07:51 97 F 52 L 18 150/87 93 L 05/20/24 07:50 98.7 F 52 L 18 150/89 93 L 05/20/24 07:30 62 17 111/68 96 05/20/24 07:15 58 L 19 112/62 96 05/20/24 07:14 97 05/20/24 07:00 75 18 111/56 93 L 05/20/24 06:45 60 116/62 93 L 05/20/24 06:30 59 L 126/81 96 05/20/24 06:00 58 L 133/83 97 05/20/24 05:45 60 140/87 95 05/20/24 05:34 60 138/90 97 05/20/24 05:00 61 18 134/82 05/20/24 04:45 57 L 20 140/76 96 05/20/24 04:32 54 L 21 139/76 96 05/20/24 04:30 138/78 96 05/20/24 04:08 97 05/20/24 04:00 54 L 20 151/96 96 05/20/24 03:42 55 L 154/93 97 05/20/24 03:39 97.1 F 53 L 54 L 16 154/93 97 General Appearance: no apparent distress Neurologic Exam: alert, oriented x 3, cooperative Eye Exam: PERRL/EOMI Ears, Nose, Throat Exam: normal ENT inspection Neck Exam: normal inspection Respiratory Exam: crackles/rales Cardiovascular Exam: regular rate/rhythm, normal heart sounds Gastrointestinal/Abdomen Exam: soft, normal bowel sounds Rectal Exam: deferred Back Exam: normal inspection Extremity Exam: normal inspection Skin Exam: normal color Results - Labs Lab/Micro Results: Lab Results-Last 24 Hours 05/20/24 05/20/24 05/20/24 Range/Units 03:38 04:20 04:20 WBC 9.9 H (4.23-9.07) x10^3/uL RBC 4.20 L (4.63-6.08) x10^6/uL Hgb 13.0 L (13.7-17.5) g/dL Hct 39.8 L (40.1-51.0) % MCV 94.8 H (79.0-92.2) fL MCH 31.0 (25.7-32.2) pg MCHC 32.7 (32.3-36.5) g/dL RDW 13.2 (11.6-14.4) % Plt Count 186 (163-337) x10^3/uL MPV 8.9 L (9.4-12.4) fL Gran % 71.4 H (34.0-67.9) % Immature Gran % (Auto) 0.4 (0.001-0.429) % Nucleat RBC Rel Count 0.0 (0.00-0.2) % Eos # (Auto) 0.43 (0.04-0.54) x10^3/uL Immature Gran # (Auto) 0.04 H (0.001-0.031) x10^3u/L Absolute Lymphs (auto) 1.23 L (1.32-3.57) x10^3/uL Absolute Monos (auto) 1.06 H (0.30-0.82) x10^3/uL Absolute Nucleated RBC 0.00 (0.00-0.012) x10^3u/L Lymphocytes % 12.5 L (21.8-53.1) % Monocytes % 10.8 (5.3-12.2) % Eosinophils % 4.4 (0.8-7.0) % Basophils % 0.5 (0.2-1.2) % Absolute Granulocytes 7.04 H (1.78-5.38) x10^3/uL Basophils # 0.05 (0.01-0.08) x10^3/uL D-Dimer (0.0-0.50) mg/L Sodium 141 (135-145) mmol/L Potassium 4.2 (3.5-5.1) mmol/L Chloride 104 (98-107) mmol/L Carbon Dioxide 36 H (22-30) mmol/L Anion Gap 5.2 (5-15) MEQ/L BUN 10 (9-20) mg/dL Creatinine 1.00 (0.66-1.25) mg/dL Estimated GFR 83.0 ML/MIN Glucose 104 (74-106) mg/dL Calcium 9.3 (8.4-10.2) mg/dL Total Bilirubin 0.50 (0.2-1.3) mg/dL AST 88 H (17-59) U/L ALT 40 (0-50) U/L Alkaline Phosphatase 62 (38-126) U/L Troponin I (0.000-0.033) ng/mL NT-Pro-B Natriuret Pep (<300) pg/mL Serum Total Protein 6.6 (6.3-8.2) g/dL Albumin 3.6 (3.5-5.0) g/dL Urine Color Yellow (Yellow) Urine Appearance Clear (Clear) Urine pH 7.0 (4.6-8.0) Ur Specific [place] 1.010 (1.005-1.030) Urine Protein Negative (Negative) Urine Glucose (UA) Negative (Negative) mg/dL Urine Ketones Negative (Negative) Urine Blood Negative (Negative) Urine Nitrite Negative (Negative) Urine Bilirubin Negative (Negative) Urine Urobilinogen 0.2 (0.2) mg/dL Ur Leukocyte Esterase Negative (Negative) U Hyaline Cast (Auto) NONE SEEN (0-2) /LPF Urine Microscopic RBC 0-2 (0-5) /HPF Urine Microscopic WBC 3-5 (0-5) /HPF Ur Epithelial Cells None Seen (None Seen) /HPF Urine Bacteria None Seen (None Seen) /HPF Urine Culture Reflexed NO (NO) 05/20/24 05/20/24 05/20/24 Range/Units 04:20 06:25 10:14 WBC (4.23-9.07) x10^3/uL RBC (4.63-6.08) x10^6/uL Hgb (13.7-17.5) g/dL Hct (40.1-51.0) % MCV (79.0-92.2) fL MCH (25.7-32.2) pg MCHC (32.3-36.5) g/dL RDW (11.6-14.4) % Plt Count (163-337) x10^3/uL MPV (9.4-12.4) fL Gran % (34.0-67.9) % Immature Gran % (Auto) (0.001-0.429) % Nucleat RBC Rel Count (0.00-0.2) % Eos # (Auto) (0.04-0.54) x10^3/uL Immature Gran # (Auto) (0.001-0.031) x10^3u/L Absolute Lymphs (auto) (1.32-3.57) x10^3/uL Absolute Monos (auto) (0.30-0.82) x10^3/uL Absolute Nucleated RBC (0.00-0.012) x10^3u/L Lymphocytes % (21.8-53.1) % Monocytes % (5.3-12.2) % Eosinophils % (0.8-7.0) % Basophils % (0.2-1.2) % Absolute Granulocytes (1.78-5.38) x10^3/uL Basophils # (0.01-0.08) x10^3/uL D-Dimer 1.21 H* (0.0-0.50) mg/L Sodium (135-145) mmol/L Potassium (3.5-5.1) mmol/L Chloride (98-107) mmol/L Carbon Dioxide (22-30) mmol/L Anion Gap (5-15) MEQ/L BUN (9-20) mg/dL Creatinine (0.66-1.25) mg/dL Estimated GFR ML/MIN Glucose (74-106) mg/dL Calcium (8.4-10.2) mg/dL Total Bilirubin (0.2-1.3) mg/dL AST (17-59) U/L ALT (0-50) U/L Alkaline Phosphatase (38-126) U/L Troponin I < 0.012 < 0.012 (0.000-0.033) ng/mL NT-Pro-B Natriuret Pep 468 (<300) pg/mL Serum Total Protein (6.3-8.2) g/dL Albumin (3.5-5.0) g/dL Urine Color (Yellow) Urine Appearance (Clear) Urine pH (4.6-8.0) Ur Specific [place] (1.005-1.030) Urine Protein (Negative) Urine Glucose (UA) (Negative) mg/dL Urine Ketones (Negative) Urine Blood (Negative) Urine Nitrite (Negative) Urine Bilirubin (Negative) Urine Urobilinogen (0.2) mg/dL Ur Leukocyte Esterase (Negative) U Hyaline Cast (Auto) (0-2) /LPF Urine Microscopic RBC (0-5) /HPF Urine Microscopic WBC (0-5) /HPF Ur Epithelial Cells (None Seen) /HPF Urine Bacteria (None Seen) /HPF Urine Culture Reflexed (NO) - Radiology Impressions Radiology Exams & Impressions: Radiology Procedures Category Date Time Status CHEST 1 VIEW (PORTABLE) Stat Exams 05/20/24 04:08 Completed CHEST WITH CONTRAST [CT] Stat Exams 05/20/24 10:49 Ordered ECHO W/2D AND DOPPLER [US] Stat Exams 05/20/24 10:49 Ordered Assessment/Plan (1) Chest pain Current Visit: Yes Status: Acute Assessment & Plan: -EKG NS in ED -Trops reviewed x 2 neg -pain control -cardiology consult, appreciate recs -echo -h/o [place] -cath with no stents -Follows with Dr. Soto OP -CTA -CXR reviewed demonstrating vascular congestion Code(s): R07.9 - CHEST PAIN, UNSPECIFIED (2) Elevated d-dimer Current Visit: Yes Status: Acute Assessment & Plan: -DDimer reviewed at 1.21- will obtain CTA to r/o PE Code(s): R79.89 - OTHER SPECIFIED ABNORMAL FINDINGS OF BLOOD CHEMISTRY (3) Macrocytic anemia Current Visit: Yes Status: Acute Assessment & Plan: -Hgb reviewed and stable at 13.0 Code(s): D53.9 - NUTRITIONAL ANEMIA, UNSPECIFIED (4) History of stroke Current Visit: Yes Status: Acute Assessment & Plan: -Noted, continue home asprin/atorvastatin Code(s): Z86.73 - PRSNL HX OF TIA (TIA), AND CEREB INFRC W/O RESID DEFICITS (5) History of seizure Current Visit: Yes Status: Acute Assessment & Plan: -Patient states with injury - does not take seizure meds Code(s): Z87.898 - PERSONAL HISTORY OF OTHER SPECIFIED CONDITIONS (6) HTN (hypertension) Current Visit: Yes Status: Acute Assessment & Plan: -stable continue home meds Code(s): I10 - ESSENTIAL (PRIMARY) HYPERTENSION (7) HLD (hyperlipidemia) Current Visit: Yes Status: Acute Assessment & Plan: -continue home statin Code(s): E78.5 - HYPERLIPIDEMIA, UNSPECIFIED (8) CHF (congestive heart failure) Current Visit: Yes Status: Acute Assessment & Plan: -No recent echo on file - will obtain -continue home medications -BNP reviewed at 468 -CXR with vascular congestion -lasix 40mg bid -cardiology consult pending -CTA pending -optimize electrolytes -elevated HOB/daily weights Code(s): I50.9 - HEART FAILURE, UNSPECIFIED (9) MT (obstructive sleep apnea) Current Visit: Yes Status: Acute Assessment & Plan: -continue home regimen Code(s): G47.33 - OBSTRUCTIVE SLEEP APNEA (ADULT) (PEDIATRIC) (10) RLS (restless legs syndrome) Current Visit: Yes Status: Acute Assessment & Plan: -continue home meds (11) History of kidney stones Current Visit: No Status: Chronic Assessment & Plan: -Patient states surgery was scheduled for this Sunday but cancelled due to weather - f/u OP -UA negative VTE: Lovenox PPI: Protonix Dispo: 1-2 days Code: full Code(s): Z87.442 - PERSONAL HISTORY OF URINARY CALCULI
[2024-05-20] MEDS: MORPHINE SULFATE 2 MG INJ IV PRN (11:07)
[2024-05-20] MEDS ORDERED: MEDICATION INTERVENTION MC SCH (11:45)
[2024-05-20] MEDS: Zofran 4 MG/2 ML VIAL IV PRN (12:07)
[2024-05-20 12:40] LABS: MAGNESIUM 1.9 mg/dL (1.6-2.3); TROPONIN < 0.012 ng/mL (0.000-0.033)
--- NOTE | 2024-05-20 12:48 | XRAY ---
Indication: Chest pain. Elevated d-dimer. Multiple contiguous axial images obtained through the chest using 80 cc Isovue 370 contrast and PE protocol. Comparison: None Good opacification pulmonary arteries to include the lobar and segmental branches. No pulmonary embolus. Heart borderline enlarged. Aorta is normal in course and caliber without aneurysm/dissection. No pathologic mediastinal/hilar lymphadenopathy. Lungs demonstrate mild bilateral dependent atelectasis. No suspicious pulmonary mass/nodule, infiltrate, or effusion. Bony thorax intact with minimal degenerative changes throughout spine. Limited upper abdomen demonstrates multiple hepatic cysts, largest 3.7 cm. Also mildly distended gallbladder and 5 mm nonobstructing right renal calculus. Impression: 1. Negative pulmonary embolus. No acute cardiopulmonary abnormalities. 2. Incidental distended gallbladder, multiple hepatic cysts, degenerative spondylosis, and nonobstructed right renal micro-calculus.
[2024-05-20] MEDS: Cozaar 50 MG PO SCH (13:11)
[2024-05-20] MEDS: ECOTRIN 81 MG PO SCH (13:12)
[2024-05-20] MEDS: Flomax 0.4 MG PO SCH (13:12)
[2024-05-20] MEDS: NORVASC 5 MG PO SCH (13:12)
[2024-05-20] MEDS: Lopressor 50 MG PO SCH (13:12)
[2024-05-20] MEDS: ZOCOR 20MG PO SCH (13:13)
[2024-05-20] MEDS: Tricor 145 MG PO SCH (13:13)
[2024-05-20] MEDS: Ocuvite Tablet PO SCH (13:13)
[2024-05-20] MEDS: ENOXAPARIN SODIUM SQ SCH (13:14)
[2024-05-20] MEDS: Lasix 40 MG/4 ML IV SCH (13:16)
[2024-05-20] MEDS: Klor Con PO SCH (13:20)
[2024-05-20] MEDS: Neurontin PO SCH (14:30)
--- NOTE | 2024-05-20 15:02 | PCM.CONS ---
History of Present Illness - Date of Consult Date of Encounter: 05/20/24 Consulting Principal Clerk Typist: JOSE MEZA MD Requesting Provider: Attending Provider: IKE DAILEY MD Primary Care Provider: PCP: EVAN MOISE, DO - Consult Narrative HPI: 64 yo male with hx of cad and chf presents with a one day hx of chest pain that woke him up from sleep at 1am last night. Pt states the chest pain was right sided and somewhat moved to his back. Chest pain has now resolved. Trop have been negative and ekg is non ischemic. Had a lhc last year which showed non obstructive disease. who denies fevers, chills, nausea, vomiting, diarrhea, syncope, presyncope, dysphagia,odynophagia, orthopnea, paroxysmal nocturnal dyspnea, shortness of breath, chest pain, refluxsymptoms, belly pain, dysuria, hematuria, melena, hematochezia, seizures, paralysis, or other neurological changes. All other systems have been reviewed and are negative. cc:: The requesting physician will be sent a copy of the consult. - Past Medical History Past Medical History: Yes Neurological History: Seizures, Stroke ENT History: Cataracts Cardiac History: Coronary Artery Disease, Myocardial Infarction ([place]), Hypertension Respiratory History: Sleep Apnea, CHF Endocrine Medical History: No Pertinent History Musculoskelatal History: Arthritis GI Medical History: Hernia History: Other Pyscho-Social History: Depression Male Reproductive Disorders: No Pertinent History Comment: restless leg sydrome ,incont of urine, GALL STONES - Past Surgical History Past Surgical History: Yes Neuro Surgical History: No Pertinent History Cardiac History: Cardiac Catheterization Respiratory Surgery: No Pertinent History GI Surgical History: No Pertinent History Genitourinary Surgical Hx: Other Musculskeletal Surgical Hx: Orthopedic Surgery Male Surgical History: No Pertinent History Other Surgical History: kidney stone, bilat shoulder surgeries, thumb surgery Significant Family History: cancer, other (stroke) - Social History Smoking Status: Former smoker Exposure to second hand smoke: Yes Alcohol: None Drug Use: none - Social Determinants of Health Will the patient participate in the screening: Yes Do you worry about a steady place to live?: No Do you have any problems with any of the following?: No known problems In the past 12 months,have you had to go without utilities?: No Have you or anyone in your house had to go without enough: No Transportation Issues: No Has anyone in your support network made you feel unsafe?: No Does the patient want assistance with any of the above?: No Medications & Allergies Home Medications: Home Medication List Atorvastatin Calcium [Lipitor 40Mg] 40 mg PO DAILY 01/28/24 [History Confirmed 05/20/24] Fenofibrate 54 mg PO DAILY 01/28/24 [History Confirmed 05/20/24] Furosemide 20 mg [Lasix 20 mg] 20 mg PO DAILY 01/28/24 [History Confirmed 05/20/24] Gabapentin [Neurontin] 800 mg PO TID 01/28/24 [History Confirmed 05/20/24] Tamsulosin HCl 0.4 mg [Flomax 0.4 MG] 0.4 mg PO DAILY 01/28/24 [History Confirmed 05/20/24] Trazodone HCl 50 mg [Desyrel 50 mg] 50 mg PO HS 01/28/24 [History Confirmed 05/20/24] Vibegron [Gemtesa] 75 mg PO HS 01/28/24 [History Confirmed 05/20/24] Losartan Potassium 100 mg PO DAILY 01/29/24 [History Confirmed 05/20/24] Potassium Chloride 20 meq PO DAILY 01/29/24 [History Confirmed 05/20/24] Hydrocodone/Acetaminophen [Hydrocodone-Acetamin 5-325 mg] 1 tab PO Q6HPRN PRN 3 Days #12 tablet MDD 4 01/31/24 [Rx Confirmed 05/20/24] Metoprolol Tartrate 50 mg [Lopressor 50 MG] 1 tab PO DAILY 05/20/24 [History Confirmed 05/20/24] Vit C/E/Zn/Coppr/Lutein/Zeaxan [Preservision Areds 2 Chew Tab] 1 tab PO DAILY 05/20/24 [History Confirmed 05/20/24] Allergies/Adverse Reactions: Allergies Allergy/AdvReac Type Severity Reaction Status Date / Time lisinopril AdvReac Severe Swelling Verified 05/20/24 07:59 of Tongue and Lips bandaid Allergy Mild Rash Uncoded 05/20/24 03:53 Exam - Vitals Vital Signs: Vital Signs - 24 hr Temp Pulse Pulse Resp BP BP Pulse Ox 05/20/24 11:54 98.0 F 53 L 18 138/63 93 L 05/20/24 07:51 97 F 52 L 18 150/87 93 L 05/20/24 07:50 98.7 F 52 L 18 150/89 93 L 05/20/24 07:30 62 17 111/68 96 05/20/24 07:15 58 L 19 112/62 96 05/20/24 07:14 97 05/20/24 07:00 75 18 111/56 93 L 05/20/24 06:45 60 116/62 93 L 05/20/24 06:30 59 L 126/81 96 05/20/24 06:00 58 L 133/83 97 05/20/24 05:45 60 140/87 95 05/20/24 05:34 60 138/90 97 05/20/24 05:00 61 18 134/82 05/20/24 04:45 57 L 20 140/76 96 05/20/24 04:32 54 L 21 139/76 96 05/20/24 04:30 138/78 96 05/20/24 04:08 97 05/20/24 04:00 54 L 20 151/96 96 05/20/24 03:42 55 L 154/93 97 05/20/24 03:39 97.1 F 53 L 54 L 16 154/93 97 General:: alert and oriented x 4 HEENT: PERRLA SpO2: 93 Results Vital Signs: Vital Signs - 24 hr Temp Pulse Pulse Resp BP BP Pulse Ox 05/20/24 11:54 98.0 F 53 L 18 138/63 93 L 05/20/24 07:51 97 F 52 L 18 150/87 93 L 05/20/24 07:50 98.7 F 52 L 18 150/89 93 L 05/20/24 07:30 62 17 111/68 96 05/20/24 07:15 58 L 19 112/62 96 05/20/24 07:14 97 05/20/24 07:00 75 18 111/56 93 L 05/20/24 06:45 60 116/62 93 L 05/20/24 06:30 59 L 126/81 96 05/20/24 06:00 58 L 133/83 97 05/20/24 05:45 60 140/87 95 05/20/24 05:34 60 138/90 97 01/07/25 05:00 61 18 134/82 05/20/24 04:45 57 L 20 140/76 96 05/20/24 04:32 54 L 21 139/76 96 05/20/24 04:30 138/78 96 05/20/24 04:08 97 05/20/24 04:00 54 L 20 151/96 96 05/20/24 03:42 55 L 154/93 97 05/20/24 03:39 97.1 F 53 L 54 L 16 154/93 97 Pain Assessment - Last Documented Pain Intensity 7 Pain Scale Used 0-10 Pain Scale Intake and Output: Intake & Output 05/18/24 05/19/24 05/20/24 05/21/24 11:59 11:59 11:59 11:59 Intake Total 120 400 Output Total 250 Balance -130 400 Weight 91.1 kg LAB: I have reviewed the Labs in [employer]. Radiology Exams: Radiology Procedures Category Date Time Status CHEST 1 VIEW (PORTABLE) Stat Exams 05/20/24 04:08 Completed CHEST WITH CONTRAST [CT] Stat Exams 05/20/24 10:49 Completed ECHO W/2D AND DOPPLER [US] Stat Exams 05/20/24 10:49 Taken GALLBLADDER [US] Urgent Exams 05/20/24 14:52 Ordered Assessment & Plan (1) Chest pain Current Visit: Yes Status: Acute Qualifiers: Chest pain type: unspecified Qualified Code(s): R07.9 - Chest pain, unspecified Assessment & Plan: atypical in nature. trop are negative and ekg is non ischemic. would cw his cardiac meds and recommend an outpt stress test. Code(s): R07.9 - CHEST PAIN, UNSPECIFIED - Encounter Encounter: "The entirety of this encounter was performed via Telemedicine using audio and visual "
[2024-05-20] MEDS: DESYREL 50 MG PO SCH (21:14)
[2024-05-20] MEDS ORDERED: NON-FORMULARY ITEM (Vibegron [Gemtesa] 75 MG Tablet) PO SCH (22:00)
--- NOTE | 2024-05-21 05:06 | PCM.NOTE ---
Date and Time: 05/21/24 1112 Subjective Assessment: Mr.MCMULLEN BRYSON is a 64 year old male with a pmhx of seizures, stroke, CAD, [place], HTN, HLD, CHF, MT, and RLS presented to ED 05/20/24 with complaints of left sided chest pain. Patient reports onset of 1 a.m. this morning. Pain is substernal with radiation to the back, constant, and dull/aching in characteristic. He reports laying flat and deep breathing aggravates the pain and laying on his side relieves the pain. He also reports relief with morphine given in ED. He has had associated shortness of breath, mostly with talking. Also has complaints of dysuria x 2 months and states he has kidney stones and was scheduled for surgery this Sunday but due to weather was cancelled. Upon arrival to ED patient mildly bradycardic with HR in the 50's and hypertensive. EKG NS. CXR suggestive of vascular congestion. Lab findings with mild leukocytosis, macrocytic anemia, elevated ddimer, and elevated AST. BNP and trops x 2 unremarkable. Nitro and morphine given in ED which has provided some relief. Plan for admission for ACS r/o. Will consult cardiology, obtain CTA and echo. Repeat EKG in the a.m. Pain control. Cardiology consulted -trops negative and EKG non-ischemic. [facility] last year with non obstructive disease. Recommendations for cardiac stress test as OP. CT abdomen with distended GB. US pending. Surgery consulted. 05/21/24: Met with pt bedside. Endorses continued abdominal pain with radiation to the back. Pain has improved. He does get some relief when laying on his left side. No n/v/d. No fever. Plan for GB US and surgical consult. Will add zosyn. - Review of Systems Constitutional: No Symptoms Eyes: No Symptoms Ears, Nose, & Throat: No Symptoms Respiratory: Short Of Breath Abdominal/Gastrointestinal: Abdominal Pain Genitourinary Symptoms: No Symptoms Musculoskeletal: Back Pain Skin: No Symptoms Neurological: No Symptoms Psychological: No Symptoms Endocrine: No Symptoms Hematologic/Lymphatic: No Symptoms Immunological/Allergic: No Symptoms Objective Exam General Appearance: no apparent distress Neurologic Exam: alert, oriented x 3, cooperative Skin Exam: normal color Eye Exam: PERRL Ears, Nose, Throat Exam: normal ENT inspection Neck Exam: normal inspection Respiratory Exam: normal breath sounds, lungs clear Cardiovascular Exam: regular rate/rhythm, normal heart sounds Gastrointestinal/Abdomen Exam: soft, normal bowel sounds, tenderness (LLQ) Extremity Exam: normal inspection Back Exam: normal inspection Male Genitalia Exam: deferred Rectal Exam: deferred Objective Data Vital Signs: Vital Signs - 24 hr Temp Pulse Resp BP BP Pulse Ox 05/21/24 03:54 97.9 F 58 L 18 133/76 91 L 05/21/24 03:53 97.7 F 56 L 18 141/84 94 L 05/21/24 00:00 97.9 F 58 L 18 133/76 91 L 05/20/24 19:42 98.5 F 54 L 15 134/74 93 L 05/20/24 16:00 98.2 F 60 18 130/83 92 L 05/20/24 15:23 93 L 05/20/24 11:54 98.0 F 53 L 18 138/63 93 L 05/20/24 07:51 97 F 52 L 18 150/87 93 L 05/20/24 07:50 98.7 F 52 L 18 150/89 93 L 05/20/24 07:30 62 17 111/68 96 05/20/24 07:15 58 L 19 112/62 96 05/20/24 07:14 97 05/20/24 07:00 75 18 111/56 93 L 05/20/24 06:45 60 116/62 93 L 05/20/24 06:30 59 L 126/81 96 05/20/24 06:00 58 L 133/83 97 05/20/24 05:45 60 140/87 95 05/20/24 05:34 60 138/90 97 Pain Assessment - Last Documented Pain Intensity 2 Pain Scale Used 0-10 Pain Scale Intake and Output: Intake & Output 05/18/24 05/19/24 05/20/24 05/21/24 11:59 11:59 11:59 11:59 Intake Total 120 1400 Output Total 250 3175 Balance -130 -1775 Weight 91.1 kg Lab Results: Lab Results-Last 24 Hours 05/20/24 05/20/24 05/20/24 Range/Units 03:38 06:25 10:14 D-Dimer 1.21 H* (0.0-0.50) mg/L Magnesium (1.6-2.3) mg/dL Troponin I < 0.012 (0.000-0.033) ng/mL NT-Pro-B Natriuret Pep 468 (<300) pg/mL Urine Color Yellow (Yellow) Urine Appearance Clear (Clear) Urine pH 7.0 (4.6-8.0) Ur Specific [place] 1.010 (1.005-1.030) Urine Protein Negative (Negative) Urine Glucose (UA) Negative (Negative) mg/dL Urine Ketones Negative (Negative) Urine Blood Negative (Negative) Urine Nitrite Negative (Negative) Urine Bilirubin Negative (Negative) Urine Urobilinogen 0.2 (0.2) mg/dL Ur Leukocyte Esterase Negative (Negative) U Hyaline Cast (Auto) NONE SEEN (0-2) /LPF Urine Microscopic RBC 0-2 (0-5) /HPF Urine Microscopic WBC 3-5 (0-5) /HPF Ur Epithelial Cells None Seen (None Seen) /HPF Urine Bacteria None Seen (None Seen) /HPF Urine Culture Reflexed NO (NO) 05/20/24 Range/Units 12:10 D-Dimer (0.0-0.50) mg/L Magnesium 1.9 (1.6-2.3) mg/dL Troponin I < 0.012 (0.000-0.033) ng/mL NT-Pro-B Natriuret Pep (<300) pg/mL Urine Color (Yellow) Urine Appearance (Clear) Urine pH (4.6-8.0) Ur Specific [place] (1.005-1.030) Urine Protein (Negative) Urine Glucose (UA) (Negative) mg/dL Urine Ketones (Negative) Urine Blood (Negative) Urine Nitrite (Negative) Urine Bilirubin (Negative) Urine Urobilinogen (0.2) mg/dL Ur Leukocyte Esterase (Negative) U Hyaline Cast (Auto) (0-2) /LPF Urine Microscopic RBC (0-5) /HPF Urine Microscopic WBC (0-5) /HPF Ur Epithelial Cells (None Seen) /HPF Urine Bacteria (None Seen) /HPF Urine Culture Reflexed (NO) Radiology Exams: Radiology Procedures Category Date Time Status CHEST 1 VIEW (PORTABLE) Stat Exams 05/20/24 04:08 Completed CHEST WITH CONTRAST [CT] Stat Exams 05/20/24 10:49 Completed ECHO W/2D AND DOPPLER [US] Stat Exams 05/20/24 10:49 Taken GALLBLADDER [US] Urgent Exams 05/21/24 08:00 Ordered Assessment/Plan (1) Chest pain Current Visit: Yes Status: Acute Qualifiers: Chest pain type: unspecified Qualified Code(s): R07.9 - Chest pain, unspecified Assessment & Plan: -EKG NS in ED -Trops reviewed x 2 neg -pain control -cardiology consult, appreciate recs -echo -h/o [place] -cath with no stents -Follows with Dr. Soto OP -CTA -CXR reviewed demonstrating vascular congestion 05/21/24: -CTA reviewed and negative for PE- no cardiopulmonary abnormalities. Incidental distended gallbladder noted - will order GB US- could be cause of chest pain with radiation to the back -Cardiology consult reviewed and discussed - patient to follow up with cardiology OP for stress test Code(s): R07.9 - CHEST PAIN, UNSPECIFIED ABnormal CT imaging -CT with distended GB as stated above -US GB and surgery consulted ordered - add zosyn (2) Elevated d-dimer Current Visit: Yes Status: Acute Assessment & Plan: -DDimer reviewed at 1.21- will obtain CTA to r/o PE 05/21/24: -CTA reviewed and negative for PE Code(s): R79.89 - OTHER SPECIFIED ABNORMAL FINDINGS OF BLOOD CHEMISTRY (3) Macrocytic anemia Current Visit: Yes Status: Acute Assessment & Plan: -Hgb reviewed and stable at 13.0 05/21/24: -Hgb reviewed and remains stable at 13.2 Code(s): D53.9 - NUTRITIONAL ANEMIA, UNSPECIFIED (4) History of stroke Current Visit: Yes Status: Acute Assessment & Plan: -Noted, continue home asprin/atorvastatin Code(s): Z86.73 - PRSNL HX OF TIA (TIA), AND CEREB INFRC W/O RESID DEFICITS (5) History of seizure Current Visit: Yes Status: Acute Assessment & Plan: -Patient states with injury - does not take seizure meds Code(s): Z87.898 - PERSONAL HISTORY OF OTHER SPECIFIED CONDITIONS (6) HTN (hypertension) Current Visit: Yes Status: Acute Assessment & Plan: -stable continue home meds Code(s): I10 - ESSENTIAL (PRIMARY) HYPERTENSION (7) HLD (hyperlipidemia) Current Visit: Yes Status: Acute Assessment & Plan: -continue home statin Code(s): E78.5 - HYPERLIPIDEMIA, UNSPECIFIED (8) CHF (congestive heart failure) Current Visit: Yes Status: Acute Assessment & Plan: -No recent echo on file - will obtain -continue home medications -BNP reviewed at 468 -CXR with vascular congestion -lasix 40mg bid -cardiology consult pending -CTA pending -optimize electrolytes -elevated HOB/daily weights 05/21/24: -CTA as stated above -will dc lasix as no vascular congestion shown on CTA - no edema on exam - creat starting to increase Code(s): I50.9 - HEART FAILURE, UNSPECIFIED (9) MT (obstructive sleep apnea) Current Visit: Yes Status: Acute Assessment & Plan: -continue home regimen Code(s): G47.33 - OBSTRUCTIVE SLEEP APNEA (ADULT) (PEDIATRIC) (10) RLS (restless legs syndrome) Current Visit: Yes Status: Acute Assessment & Plan: -continue home meds (11) History of kidney stones Current Visit: No Status: Chronic Assessment & Plan: -Patient states surgery was scheduled for this Sunday but cancelled due to weather - f/u OP -UA negative VTE: Lovenox PPI: Protonix Dispo: 1-2 days Code: full Code(s): R07.9 - CHEST PAIN, UNSPECIFIED (2) Elevated d-dimer Current Visit: Yes Status: Acute Code(s): R79.89 - OTHER SPECIFIED ABNORMAL FINDINGS OF BLOOD CHEMISTRY (3) Macrocytic anemia Current Visit: Yes Status: Acute Code(s): D53.9 - NUTRITIONAL ANEMIA, UNSPECIFIED (4) History of stroke Current Visit: Yes Status: Acute Code(s): Z86.73 - PRSNL HX OF TIA (TIA), AND CEREB INFRC W/O RESID DEFICITS (5) History of seizure Current Visit: Yes Status: Acute Code(s): Z87.898 - PERSONAL HISTORY OF OTHER SPECIFIED CONDITIONS (6) HTN (hypertension) Current Visit: Yes Status: Acute Code(s): I10 - ESSENTIAL (PRIMARY) HYPERTENSION (7) HLD (hyperlipidemia) Current Visit: Yes Status: Acute Code(s): E78.5 - HYPERLIPIDEMIA, UNSPECIFIED (8) CHF (congestive heart failure) Current Visit: Yes Status: Acute Code(s): I50.9 - HEART FAILURE, UNSPECIFIED (9) MT (obstructive sleep apnea) Current Visit: Yes Status: Acute Code(s): G47.33 - OBSTRUCTIVE SLEEP APNEA (ADULT) (PEDIATRIC) (10) RLS (restless legs syndrome) Current Visit: Yes Status: Acute (11) History of kidney stones Current Visit: No Status: Chronic Code(s): Z87.442 - PERSONAL HISTORY OF URINARY CALCULI (12) Abnormal CT of the abdomen Current Visit: Yes Status: Acute Code(s): R93.5 - ABN FINDINGS ON DX IMAGING OF ABD REGIONS, INC RETROPERITON
[2024-05-21 05:13] LABS: Absolute Neutrophil Ct (ANC) 5.27 x10^3/uL (1.78-5.38); BASOPHIL % 0.4 % (0.2-1.2); Basophil (Absolute #) 0.03 x10^3/uL (0.01-0.08); Eosinophil % 3.2 % (0.8-7.0); Eosinophil (Absolute #) 0.25 x10^3/uL (0.04-0.54); Hemoglobin 13.2 g/dL (13.7-17.5); IMMATURE GRAN # 0.02 x10^3u/L (0.001-0.031); IMMATURE GRAN % 0.3 % (0.001-0.429); Lymphocyte (Absolute #) 1.44 x10^3/uL (1.32-3.57); Lymphocytes % 18.3 % (21.8-53.1); Mean Cell Volume 92.4 fL (79.0-92.2); Mean Corpuscular Hemoglobin 30.5 pg (25.7-32.2); Mean Platelet Volume 9.2 fL (9.4-12.4); Monocyte (Absolute #) 0.87 x10^3/uL (0.30-0.82); Neutrophil % 66.8 % (34.0-67.9); Platelet Count 198 x10^3/uL (163-337); Red Blood Count 4.33 x10^6/uL (4.63-6.08); White Blood Count 7.9 x10^3/uL (4.23-9.07)
[2024-05-21 05:25] LABS: ALBUMIN 3.9 g/dL (3.5-5.0); ANION GAP 5.5 MEQ/L (5-15); BILIRUBIN,TOTAL 0.4 mg/dL (0.2-1.3); Creatinine 1 1.28 mg/dL (0.66-1.25); EST GLOMERULAR FILTRATION RATE 61.7 ML/MIN; MAGNESIUM 1.9 mg/dL (1.6-2.3); Potassium 3.6 mmol/L (3.5-5.1); Total Protein 7.2 g/dL (6.3-8.2)
--- NOTE | 2024-05-21 11:34 | XRAY ---
Indication: Distended gallbladder on CT. Two-dimensional gallbladder sonogram performed. Comparison: None Visualized gallbladder moderately distended with 6-7 mm gallstone near the neck. No abnormal gallbladder wall thickening or pericholecystic fluid. Common bile duct measures 7.1 mm. No intrahepatic biliary distention. Visualized liver demonstrates multiple cysts, largest 1.3 cm in right lobe. No hepatomegaly or free fluid. Right kidney measures 12.5 x 6.1 x 5.0 cm with 1.2 cm lower pole calculus. No hydronephrosis or evidence for obstructive uropathy. Remaining visualized pancreas sonographic unremarkable. Impression: 1. Distended gallbladder with tiny gallstone. Negative for acute cholecystitis. 2. Borderline prominent common bile duct without biliary tree distention. 3. Incidental hepatic cysts and nonobstructing right renal calculus.
[2024-05-21] MEDS: PIPERACILLIN/TAZOBACTAM 3.375 GM in Sodium Chloride 100ML MINI-BAG PLUS 100 ML IV SCH (12:42)
[2024-05-22 05:00] LABS: Absolute Neutrophil Ct (ANC) 3.87 x10^3/uL (1.78-5.38); BASOPHIL % 0.8 % (0.2-1.2); Basophil (Absolute #) 0.05 x10^3/uL (0.01-0.08); Eosinophil % 7.1 % (0.8-7.0); Eosinophil (Absolute #) 0.45 x10^3/uL (0.04-0.54); Hematocrit 38.4 % (40.1-51.0); Hemoglobin 12.7 g/dL (13.7-17.5); IMMATURE GRAN # 0.01 x10^3u/L (0.001-0.031); IMMATURE GRAN % 0.2 % (0.001-0.429); Lymphocyte (Absolute #) 1.23 x10^3/uL (1.32-3.57); Lymphocytes % 19.3 % (21.8-53.1); Mean Cell Volume 92.1 fL (79.0-92.2); Mean Corpuscular Hemoglobin 30.5 pg (25.7-32.2); Mean Corpuscular Hgb Concent. 33.1 g/dL (32.3-36.5); Mean Platelet Volume 9.4 fL (9.4-12.4); Monocyte (Absolute #) 0.76 x10^3/uL (0.30-0.82); Monocytes % 11.9 % (5.3-12.2); Neutrophil % 60.7 % (34.0-67.9); Platelet Count 193 x10^3/uL (163-337); Red Blood Count 4.17 x10^6/uL (4.63-6.08); Red Cell Distribution Width 13.4 % (11.6-14.4); White Blood Count 6.4 x10^3/uL (4.23-9.07)
--- NOTE | 2024-05-22 05:00 | PCM.NOTE ---
Date and Time: 05/22/24 0455 Subjective Assessment: Mr.MCMULLEN BRYSON is a 64 year old male with a pmhx of seizures, stroke, CAD, [place], HTN, HLD, CHF, MT, and RLS presented to ED 05/20/24 with complaints of left sided chest pain. Patient reports onset of 1 a.m. this morning. Pain is substernal with radiation to the back, constant, and dull/aching in characteristic. He reports laying flat and deep breathing aggravates the pain and laying on his side relieves the pain. He also reports relief with morphine given in ED. He has had associated shortness of breath, mostly with talking. Also has complaints of dysuria x 2 months and states he has kidney stones and was scheduled for surgery this Sunday but due to weather was cancelled. Upon arrival to ED patient mildly bradycardic with HR in the 50's and hypertensive. EKG NS. CXR suggestive of vascular congestion. Lab findings with mild leukocytosis, macrocytic anemia, elevated ddimer, and elevated AST. BNP and trops x 2 unremarkable. Nitro and morphine given in ED which has provided some relief. Plan for admission for ACS r/o. Will consult cardiology, obtain CTA and echo. Repeat EKG in the a.m. Pain control. Cardiology consulted -trops negative and EKG non-ischemic. [facility] last year with non obstructive disease. Recommendations for cardiac stress test as OP. CT abdomen with distended GB. GB US with distended GB and tiny stone. Prominent bile duct without biliary tree distention. Surgery consulted. 05/21/24: Met with pt bedside. Endorses continued abdominal pain with radiation to the back. Pain has improved. He does get some relief when laying on his left side. No n/v/d. No fever. Plan for GB US and surgical consult. Will add zosyn. 05/22/24: Patient still having substernal left chest to back pain as well as RUQ pain. He rates his pain 7/10 today on numerical pain scale. CT abdomen with distended GB. GB US with distended GB and tiny stone. Prominent bile duct without biliary tree distention. Surgery consulted and pending. - Review of Systems Constitutional: No Symptoms Eyes: No Symptoms Ears, Nose, & Throat: No Symptoms Respiratory: No Symptoms Cardiac: Chest Pain Abdominal/Gastrointestinal: Abdominal Pain Genitourinary Symptoms: No Symptoms Musculoskeletal: Back Pain Skin: No Symptoms Neurological: No Symptoms Psychological: No Symptoms Endocrine: No Symptoms Hematologic/Lymphatic: No Symptoms Immunological/Allergic: No Symptoms Objective Exam General Appearance: no apparent distress Neurologic Exam: alert, oriented x 3, cooperative Eye Exam: PERRL Ears, Nose, Throat Exam: normal ENT inspection Neck Exam: normal inspection Respiratory Exam: normal breath sounds, lungs clear Cardiovascular Exam: regular rate/rhythm, normal heart sounds Gastrointestinal/Abdomen Exam: soft, normal bowel sounds Extremity Exam: normal inspection Back Exam: normal inspection Male Genitalia Exam: deferred Rectal Exam: deferred Objective Data Vital Signs: Vital Signs - 24 hr Temp Pulse Resp BP Pulse Ox 05/22/24 04:00 97.5 F 48 L 18 129/76 99 05/21/24 23:37 97.7 F 56 L 18 122/72 93 L 05/21/24 19:40 97.7 F 53 L 17 127/77 93 L 05/21/24 15:19 97.6 F 56 L 18 137/82 92 L 05/21/24 12:00 97.3 F 50 L 19 144/86 95 05/21/24 07:30 97.5 F 57 L 16 136/84 93 L Pain Assessment - Last Documented Pain Intensity 2 Pain Scale Used 0-10 Pain Scale Intake and Output: Intake & Output 05/19/24 05/20/24 05/21/24 05/22/24 11:59 11:59 11:59 11:59 Intake Total 120 1500 1522 Output Total 250 3625 800 Balance -130 -2125 722 Weight 91.1 kg 91.3 kg Lab Results: Lab Results-Last 24 Hours 05/21/24 05/21/24 05/21/24 Range/Units 04:57 04:57 04:57 WBC 7.9 (4.23-9.07) x10^3/uL RBC 4.33 L (4.63-6.08) x10^6/uL Hgb 13.2 L (13.7-17.5) g/dL Hct 40.0 L (40.1-51.0) % MCV 92.4 H (79.0-92.2) fL MCH 30.5 (25.7-32.2) pg MCHC 33.0 (32.3-36.5) g/dL RDW 13.0 (11.6-14.4) % Plt Count 198 (163-337) x10^3/uL MPV 9.2 L (9.4-12.4) fL Gran % 66.8 (34.0-67.9) % Immature Gran % (Auto) 0.3 (0.001-0.429) % Nucleat RBC Rel Count 0.0 (0.00-0.2) % Eos # (Auto) 0.25 (0.04-0.54) x10^3/uL Immature Gran # (Auto) 0.02 (0.001-0.031) x10^3u/L Absolute Lymphs (auto) 1.44 (1.32-3.57) x10^3/uL Absolute Monos (auto) 0.87 H (0.30-0.82) x10^3/uL Absolute Nucleated RBC 0.00 (0.00-0.012) x10^3u/L Lymphocytes % 18.3 L (21.8-53.1) % Monocytes % 11.0 (5.3-12.2) % Eosinophils % 3.2 (0.8-7.0) % Basophils % 0.4 (0.2-1.2) % Absolute Granulocytes 5.27 (1.78-5.38) x10^3/uL Basophils # 0.03 (0.01-0.08) x10^3/uL Sodium 139 (135-145) mmol/L Potassium 3.6 (3.5-5.1) mmol/L Chloride 101 (98-107) mmol/L Carbon Dioxide 36 H (22-30) mmol/L Anion Gap 5.5 (5-15) MEQ/L BUN 17 (9-20) mg/dL Creatinine 1.28 H (0.66-1.25) mg/dL Estimated GFR 61.7 ML/MIN Glucose 101 (74-106) mg/dL Calcium 9.0 (8.4-10.2) mg/dL Magnesium 1.9 (1.6-2.3) mg/dL Total Bilirubin 0.40 (0.2-1.3) mg/dL AST 51 (17-59) U/L ALT 45 (0-50) U/L Alkaline Phosphatase 68 (38-126) U/L Serum Total Protein 7.2 (6.3-8.2) g/dL Albumin 3.9 (3.5-5.0) g/dL Lipase 249 (23-300) U/L Radiology Exams: Radiology Procedures Category Date Time Status CHEST 1 VIEW (PORTABLE) Stat Exams 05/20/24 04:08 Completed CHEST WITH CONTRAST [CT] Stat Exams 05/20/24 10:49 Completed ECHO W/2D AND DOPPLER [US] Stat Exams 05/20/24 10:49 Taken GALLBLADDER [US] Urgent Exams 05/21/24 08:00 Completed Multi-Disciplinary Progress Notes: Multi-Disciplinary Progress Notes 05/21/24 12:00 Case Management Note by Sherry Min S/W PATIENT- HE CONTINUES TO DENY ANY NEW NEEDS AT TIME OF DC. HE PLANS TO RETURN HOME TO HIS PLF AT TIME OF DC Initialized on 05/21/24 12:00 - END OF NOTE Assessment/Plan (1) Chest pain Current Visit: Yes Status: Acute Qualifiers: Chest pain type: unspecified Qualified Code(s): R07.9 - Chest pain, unspecified Assessment & Plan: -EKG NS in ED -Trops reviewed x 2 neg -pain control -cardiology consult, appreciate recs -echo -h/o [place] -cath with no stents -Follows with Dr. Soto OP -CTA -CXR reviewed demonstrating vascular congestion 05/21/24: -CTA reviewed and negative for PE- no cardiopulmonary abnormalities. Incidental distended gallbladder noted - will order GB US- could be cause of chest pain with radiation to the back -Cardiology consult reviewed and discussed - patient to follow up with cardiology OP for stress test Code(s): R07.9 - CHEST PAIN, UNSPECIFIED ABnormal CT imaging -CT with distended GB as stated above -US GB and surgery consulted ordered - add zosyn Cholelithiasis -CT abd/pelvis reviwed with distended GB -GB US with distended GB and tiny stones. Prominent biliary duct with no distention of the biliary tree (2) Elevated d-dimer Current Visit: Yes Status: Acute Assessment & Plan: -DDimer reviewed at 1.21- will obtain CTA to r/o PE 05/21/24: -CTA reviewed and negative for PE Code(s): R79.89 - OTHER SPECIFIED ABNORMAL FINDINGS OF BLOOD CHEMISTRY (3) Macrocytic anemia Current Visit: Yes Status: Acute Assessment & Plan: -Hgb reviewed and stable at 13.0 05/21/24: -Hgb reviewed and remains stable at 13.2 /02/05: -Hgb reviewed and stable at 12.7 Code(s): D53.9 - NUTRITIONAL ANEMIA, UNSPECIFIED (4) History of stroke Current Visit: Yes Status: Acute Assessment & Plan: -Noted, continue home asprin/atorvastatin Code(s): Z86.73 - PRSNL HX OF TIA (TIA), AND CEREB INFRC W/O RESID DEFICITS (5) History of seizure Current Visit: Yes Status: Acute Assessment & Plan: -Patient states with injury - does not take seizure meds Code(s): Z87.898 - PERSONAL HISTORY OF OTHER SPECIFIED CONDITIONS (6) HTN (hypertension) Current Visit: Yes Status: Acute Assessment & Plan: -stable continue home meds Code(s): I10 - ESSENTIAL (PRIMARY) HYPERTENSION (7) HLD (hyperlipidemia) Current Visit: Yes Status: Acute Assessment & Plan: -continue home statin Code(s): E78.5 - HYPERLIPIDEMIA, UNSPECIFIED (8) CHF (congestive heart failure) Current Visit: Yes Status: Acute Assessment & Plan: -No recent echo on file - will obtain -continue home medications -BNP reviewed at 468 -CXR with vascular congestion -lasix 40mg bid -cardiology consult pending -CTA pending -optimize electrolytes -elevated HOB/daily weights 05/21/24: -CTA as stated above -will dc lasix as no vascular congestion shown on CTA - no edema on exam - creat starting to increase Code(s): I50.9 - HEART FAILURE, UNSPECIFIED (9) MT (obstructive sleep apnea) Current Visit: Yes Status: Acute Assessment & Plan: -continue home regimen Code(s): G47.33 - OBSTRUCTIVE SLEEP APNEA (ADULT) (PEDIATRIC) (10) RLS (restless legs syndrome) Current Visit: Yes Status: Acute Assessment & Plan: -continue home meds (11) History of kidney stones Current Visit: No Status: Chronic Assessment & Plan: -Patient states surgery was scheduled for this Sunday but cancelled due to weather - f/u OP -UA negative VTE: Lovenox PPI: Protonix Dispo: 1-2 days Code: full Code(s): R07.9 - CHEST PAIN, UNSPECIFIED Code(s): R07.9 - CHEST PAIN, UNSPECIFIED (2) Elevated d-dimer Current Visit: Yes Status: Acute Code(s): R79.89 - OTHER SPECIFIED ABNORMAL FINDINGS OF BLOOD CHEMISTRY (3) Cholelithiases Current Visit: Yes Status: Acute (4) Macrocytic anemia Current Visit: Yes Status: Acute Code(s): D53.9 - NUTRITIONAL ANEMIA, UNSPECIFIED (5) History of stroke Current Visit: Yes Status: Acute Code(s): Z86.73 - PRSNL HX OF TIA (TIA), AND CEREB INFRC W/O RESID DEFICITS (6) History of seizure Current Visit: Yes Status: Acute Code(s): Z87.898 - PERSONAL HISTORY OF OTHER SPECIFIED CONDITIONS (7) HTN (hypertension) Current Visit: Yes Status: Acute Code(s): I10 - ESSENTIAL (PRIMARY) HYPERTENSION (8) HLD (hyperlipidemia) Current Visit: Yes Status: Acute Code(s): E78.5 - HYPERLIPIDEMIA, UNSPECIFIED (9) CHF (congestive heart failure) Current Visit: Yes Status: Acute Code(s): I50.9 - HEART FAILURE, UNSPECIFIED (10) MT (obstructive sleep apnea) Current Visit: Yes Status: Acute Code(s): G47.33 - OBSTRUCTIVE SLEEP APNEA (ADULT) (PEDIATRIC) (11) RLS (restless legs syndrome) Current Visit: Yes Status: Acute (12) History of kidney stones Current Visit: No Status: Chronic Code(s): Z87.442 - PERSONAL HISTORY OF URINARY CALCULI (13) Abnormal CT of the abdomen Current Visit: Yes Status: Acute Code(s): R93.5 - ABN FINDINGS ON DX IMAGING OF ABD REGIONS, INC RETROPERITON
[2024-05-22 05:10] LABS: ALBUMIN 3.5 g/dL (3.5-5.0); ANION GAP 4.4 MEQ/L (5-15); BILIRUBIN,TOTAL 0.3 mg/dL (0.2-1.3); Calcium 8.9 mg/dL (8.4-10.2); Creatinine 1 1.21 mg/dL (0.66-1.25); Potassium 3.7 mmol/L (3.5-5.1); Total Protein 6.6 g/dL (6.3-8.2)
[2024-05-22] MEDS: Lactated Ringers 1,000 ML IV SCH (11:10)
--- NOTE | 2024-05-22 13:06 | PCM.CONS ---
History of Present Illness - Reason for Consult Chief Complaint: ACS, Chest pain Requesting Provider: IKE DAILEY MD Consulting Provider: HUSEYIN CHAIDEZ MD History of Present Illness: Mr.MCMULLEN BRYSON is a 64 year old male. "hx per chart review and d/w pt pmh listed does have cad hx, stroke remotely. good functiona lstatus stable since. 05/20 0100 severe upper abdominal pain chest pain. to ED. radiates to back severe. constant. workup negative ct chest. distended sara. stones identified on US. mild nausea. no emesis. no bowel issues. no complaints otherwise. still with upper abdominal pain. did have prior biliar ycolic type episodes that always resolved. this is the first "bad one". no prior abdominal surgery. is up to date on c scope "History of Present Illness - Chief Complaint Chief Complaint: ACS, Chest pain Date: 05/20/24 History of Present Illness: Mr.MCMULLEN BRYSON is a 64 year old male with a pmhx of seizures, stroke, CAD, OR, HTN, HLD, CHF, MT, and RLS presented to ED 05/20/24 with complaints of left sided chest pain. Patient reports onset of 1 a.m. this morning. Pain is substernal with radiation to the back, constant, and dull/aching in characteristic. He reports laying flat and deep breathing aggravates the pain and laying on his side relieves the pain. He also reports relief with morphine given in ED. He has had associated shortness of breath, mostly with talking. Also has complaints of dysuria x 2 months and states he has kidney stones and was scheduled for surgery this Sunday but due to weather was cancelled. Upon arrival to ED patient mildly bradycardic with HR in the 50's and hypertensive. EKG NS. CXR suggestive of vascular congestion. Lab findings with mild leukocytosis, macrocytic anemia, elevated ddimer, and elevated AST. BNP and trops x 2 unremarkable. Nitro and morphine given in ED which has provided some relief. Plan for admission for ACS r/o. Will consult cardiology, obtain CTA and echo. Repeat EKG in the a.m. Pain control. - Review of Systems Constitutional: No Symptoms Eyes: No Symptoms Ears, Nose, & Throat: No Symptoms Respiratory: Short Of Breath Cardiac: Chest Pain Abdominal/Gastrointestinal: No Symptoms Genitourinary Symptoms: Dysuria Musculoskeletal: Back Pain Skin: No Symptoms Neurological: No Symptoms Psychological: No Symptoms Endocrine: No Symptoms Hematologic/Lymphatic: No Symptoms Immunological/Allergic: No Symptoms Medications & Allergies Home Medications: Home Medication List Amlodipine Besylate 5 mg [Norvasc 5 mg] 10 mg PO DAILY 01/28/24 [History Confirmed 05/20/24] Atorvastatin Calcium [Lipitor 40Mg] 40 mg PO DAILY 01/28/24 [History Confirmed 05/20/24] Fenofibrate 54 mg PO DAILY 01/28/24 [History Confirmed 05/20/24] Furosemide 20 mg [Lasix 20 mg] 20 mg PO DAILY 01/28/24 [History Confirmed 05/20/24] Gabapentin [Neurontin] 800 mg PO TID 01/28/24 [History Confirmed 05/20/24] Tamsulosin HCl 0.4 mg [Flomax 0.4 MG] 0.4 mg PO DAILY 01/28/24 [History Confirmed 05/20/24] Trazodone HCl 50 mg [Desyrel 50 mg] 50 mg PO HS 01/28/24 [History Confirmed 05/20/24] Vibegron [Gemtesa] 75 mg PO HS 01/28/24 [History Confirmed 05/20/24] Aspirin [Adult Low Dose Aspirin EC] 81 mg PO DAILY 01/29/24 [History Confirmed 05/20/24] Losartan Potassium 100 mg PO DAILY 01/29/24 [History Confirmed 05/20/24] Potassium Chloride 20 meq PO DAILY 01/29/24 [History Confirmed 05/20/24] Hydrocodone/Acetaminophen [Hydrocodone-Acetamin 5-325 mg] 1 tab PO Q6HPRN PRN 3 Days #12 tablet MDD 4 01/31/24 [Rx Confirmed 05/20/24] Metoprolol Tartrate 50 mg [Lopressor 50 MG] 1 tab PO BID 05/20/24 [History Confirmed 05/20/24] Vit C/E/Zn/Coppr/Lutein/Zeaxan [Preservision Areds 2 Chew Tab] 1 tab PO DAILY 05/20/24 [History Confirmed 05/20/24] Allergies/Adverse Reactions: Allergies Allergy/AdvReac Type Severity Reaction Status Date / Time lisinopril AdvReac Severe Swelling Verified 05/20/24 07:59 of Tongue and Lips bandaid Allergy Mild Rash Uncoded 05/20/24 03:53 - Past Medical History Past Medical History: Yes Neurological History: Seizures, Stroke ENT History: Cataracts Cardiac History: Coronary Artery Disease, Myocardial Infarction (OR), Hypertension Respiratory History: Sleep Apnea, CHF Endocrine Medical History: No Pertinent History Musculoskelatal History: Arthritis GI Medical History: Hernia History: Other Pyscho-Social History: Depression Male Reproductive Disorders: No Pertinent History Comment: restless leg sydrome ,incont of urine, GALL STONES - Past Surgical History Past Surgical History: Yes Neuro Surgical History: No Pertinent History Cardiac History: Cardiac Catheterization Respiratory Surgery: No Pertinent History GI Surgical History: No Pertinent History Genitourinary Surgical Hx: Other Musculskeletal Surgical Hx: Orthopedic Surgery Male Surgical History: No Pertinent History Other Surgical History: kidney stone, bilat shoulder surgeries, thumb surgery Significant Family History: cancer, other (stroke) - Social History Smoking Status: Former smoker Exposure to second hand smoke: Yes Alcohol: None Drug Use: none - Social Determinants of Health Will the patient participate in the screening: Yes Do you worry about a steady place to live?: No Do you have any problems with any of the following?: No known problems In the past 12 months,have you had to go without utilities?: No Have you or anyone in your house had to go without enough: No Transportation Issues: No Has anyone in your support network made you feel unsafe?: No Does the patient want assistance with any of the above?: No " Medications & Allergies Home Medications: Home Medication List Atorvastatin Calcium [Lipitor 40Mg] 40 mg PO DAILY 01/28/24 [History Confirmed 05/20/24] Fenofibrate 54 mg PO DAILY 01/28/24 [History Confirmed 05/20/24] Furosemide 20 mg [Lasix 20 mg] 20 mg PO DAILY 01/28/24 [History Confirmed 05/20/24] Gabapentin [Neurontin] 800 mg PO TID 01/28/24 [History Confirmed 05/20/24] Tamsulosin HCl 0.4 mg [Flomax 0.4 MG] 0.4 mg PO DAILY 01/28/24 [History Confirmed 05/20/24] Trazodone HCl 50 mg [Desyrel 50 mg] 50 mg PO HS 01/28/24 [History Confirmed 05/20/24] Vibegron [Gemtesa] 75 mg PO HS 01/28/24 [History Confirmed 05/20/24] Losartan Potassium 100 mg PO DAILY 01/29/24 [History Confirmed 05/20/24] Potassium Chloride 20 meq PO DAILY 01/29/24 [History Confirmed 05/20/24] Hydrocodone/Acetaminophen [Hydrocodone-Acetamin 5-325 mg] 1 tab PO Q6HPRN PRN 3 Days #12 tablet MDD 4 01/31/24 [Rx Confirmed 05/20/24] Metoprolol Tartrate 50 mg [Lopressor 50 MG] 1 tab PO DAILY 05/20/24 [History Confirmed 05/20/24] Vit C/E/Zn/Coppr/Lutein/Zeaxan [Preservision Areds 2 Chew Tab] 1 tab PO DAILY 05/20/24 [History Confirmed 05/20/24] Allergies/Adverse Reactions: Allergies Allergy/AdvReac Type Severity Reaction Status Date / Time lisinopril AdvReac Severe Swelling Verified 05/21/24 13:36 of Tongue and Lips bandaid Allergy Mild Rash Uncoded 05/21/24 13:36 - Past Medical History Past Medical History: Yes Neurological History: Seizures, Stroke ENT History: Cataracts Cardiac History: Coronary Artery Disease, Myocardial Infarction (OR), Hypertension Respiratory History: Sleep Apnea, CHF Endocrine Medical History: No Pertinent History Musculoskelatal History: Arthritis GI Medical History: Hernia History: Other Pyscho-Social History: Depression Male Reproductive Disorders: No Pertinent History Comment: restless leg sydrome ,incont of urine, GALL STONES - Past Surgical History Past Surgical History: Yes Neuro Surgical History: No Pertinent History Cardiac History: Cardiac Catheterization Respiratory Surgery: No Pertinent History GI Surgical History: No Pertinent History Genitourinary Surgical Hx: Other Musculskeletal Surgical Hx: Orthopedic Surgery Male Surgical History: No Pertinent History Other Surgical History: kidney stone, bilat shoulder surgeries, thumb surgery Significant Family History: cancer, other (stroke) - Social History Smoking Status: Former smoker Exposure to second hand smoke: Yes Alcohol: None Drug Use: none - Social Determinants of Health Will the patient participate in the screening: Yes Do you worry about a steady place to live?: No Do you have any problems with any of the following?: No known problems In the past 12 months,have you had to go without utilities?: No Have you or anyone in your house had to go without enough: No Transportation Issues: No Has anyone in your support network made you feel unsafe?: No Does the patient want assistance with any of the above?: No - Physical Exam Vital Signs: Vital Signs - 24 hr Temp Pulse Resp BP Pulse Ox 05/22/24 11:40 97.8 F 56 L 18 177/101 92 L 05/22/24 10:55 97.9 F 54 L 18 147/85 93 L 05/22/24 08:00 97.9 F 54 L 18 147/85 93 L 05/22/24 04:00 97.5 F 48 L 18 129/76 99 05/21/24 23:37 97.7 F 56 L 18 122/72 93 L 05/21/24 19:40 97.7 F 53 L 17 127/77 93 L 05/21/24 15:19 97.6 F 56 L 18 137/82 92 L Additional Findings: 05/22/24 13:04 nad no scleral icterus neck symmetric nonlabored resps rrr nd, soft, ttp ruq localized voluntary guarding no nuñez. minimal edema. Results - Labs Lab/Micro Results: Lab Results-Last 24 Hours 05/21/24 05/22/24 05/22/24 Range/Units 04:57 05:00 05:00 WBC 6.4 (4.23-9.07) x10^3/uL RBC 4.17 L (4.63-6.08) x10^6/uL Hgb 12.7 L (13.7-17.5) g/dL Hct 38.4 L (40.1-51.0) % MCV 92.1 (79.0-92.2) fL MCH 30.5 (25.7-32.2) pg MCHC 33.1 (32.3-36.5) g/dL RDW 13.4 (11.6-14.4) % Plt Count 193 (163-337) x10^3/uL MPV 9.4 (9.4-12.4) fL Gran % 60.7 (34.0-67.9) % Immature Gran % (Auto) 0.2 (0.001-0.429) % Nucleat RBC Rel Count 0.0 (0.00-0.2) % Eos # (Auto) 0.45 (0.04-0.54) x10^3/uL Immature Gran # (Auto) 0.01 (0.001-0.031) x10^3u/L Absolute Lymphs (auto) 1.23 L (1.32-3.57) x10^3/uL Absolute Monos (auto) 0.76 (0.30-0.82) x10^3/uL Absolute Nucleated RBC 0.00 (0.00-0.012) x10^3u/L Lymphocytes % 19.3 L (21.8-53.1) % Monocytes % 11.9 (5.3-12.2) % Eosinophils % 7.1 H (0.8-7.0) % Basophils % 0.8 (0.2-1.2) % Absolute Granulocytes 3.87 (1.78-5.38) x10^3/uL Basophils # 0.05 (0.01-0.08) x10^3/uL Sodium 140 (135-145) mmol/L Potassium 3.7 (3.5-5.1) mmol/L Chloride 106 (98-107) mmol/L Carbon Dioxide 34 H (22-30) mmol/L Anion Gap 4.4 L (5-15) MEQ/L BUN 17 (9-20) mg/dL Creatinine 1.21 (0.66-1.25) mg/dL Estimated GFR 66.0 ML/MIN Glucose 102 (74-106) mg/dL Calcium 8.9 (8.4-10.2) mg/dL Magnesium 2.0 (1.6-2.3) mg/dL Total Bilirubin 0.30 (0.2-1.3) mg/dL AST 39 (17-59) U/L ALT 34 (0-50) U/L Alkaline Phosphatase 57 (38-126) U/L Serum Total Protein 6.6 (6.3-8.2) g/dL Albumin 3.5 (3.5-5.0) g/dL Lipase 249 (23-300) U/L - Radiology Impressions Radiology Exams & Impressions: Radiology Procedures Category Date Time Status GALLBLADDER [US] Urgent Exams 05/21/24 08:00 Completed Assessment/Plan (1) Cholelithiases Current Visit: Yes Status: Acute Assessment & Plan: 64yo with what appears to be acute cholecystitis. typical sx exam, US with stones without wall thickening. labs nonobstructive. 2 days of pain. prior biliary colic sx. discussed with patient cholecystectomy vs hida and attempt at outpt tx. he wants cholecystectomy now. -lap sara gen.
[2024-05-22] MEDS ORDERED: DEXMEDETOMIDINE 80 MCG/20ML-NS IV ONE (15:09)
[2024-05-22] MEDS ORDERED: TORAdol 30 mg Injection ONE (15:09)
[2024-05-22] MEDS ORDERED: Xylocaine-Mpf 2% 5 Ml Vial ONE (15:09)
[2024-05-22] MEDS ORDERED: ROCURONIUM BROMIDE IV ONE (15:09)
[2024-05-22] MEDS ORDERED: Zofran 4 MG/2 ML VIAL ONE (15:09)
[2024-05-22] MEDS ORDERED: SUBLIMAZE 100 MCG/2 ML ONE (15:09)
[2024-05-22] MEDS ORDERED: propofoL IV ONE (15:09)
[2024-05-22] MEDS ORDERED: Versed 2 MG/2 ML Injection ONE (15:09)
[2024-05-22] MEDS ORDERED: Decadron 4 MG INJ ONE (15:09)
[2024-05-22] MEDS ORDERED: Sensorcaine 0.25% 10 ML ONE (15:23)
[2024-05-22] MEDS ORDERED: Sodium Chloride 0.9% 1000 ML 1,000 ML ONE (15:24)
[2024-05-22] MEDS ORDERED: Ephedrine Sulfate 50 MG/ML ONE (15:29)
[2024-05-22] MEDS ORDERED: BRIDION 200MG/2ML IV ONE (16:20)
[2024-05-22] MEDS ORDERED: ROBINUL ONE (16:37)
[2024-05-22] MEDS ORDERED: Lactated Ringers 1,000 ML IV ONE (16:40)
[2024-05-22] MEDS: MORPHINE SULFATE 4 MG INJ IV PRN (21:26)
[2024-05-23] MEDS: NORCO 10-325 MG PO PRN (03:35)
--- NOTE | 2024-05-23 05:07 | PCM.DS ---
Discharge Summary Date of Admission: 05/20/24 07:40 Date of Discharge: 05/23/24 Admitting Physician: IKE DAILEY MD Consults: Consults on Case 05/20/24 10:50 Consult Cardiology ROUTINE 05/21/24 09:42 Consult Surgery ROUTINE Primary Care Provider: EVAN MOISE DO Allergies Allergies lisinopril Adverse Reaction (Severe, Verified 05/21/24 13:36) Swelling of Tongue and Lips bandaid Allergy (Mild, Uncoded 05/21/24 13:36) Rash Hospital Summary - Hospital Course Hospital Course: Mr.MCMULLEN BRYSON is a 64 year old male with a pmhx of seizures, stroke, CAD, PR, HTN, HLD, CHF, MT, and RLS presented to ED 05/20/24 with complaints of left sided chest pain. Patient reports onset of 1 a.m. this morning. Pain is substernal with radiation to the back, constant, and dull/aching in characteristic. He reports laying flat and deep breathing aggravates the pain and laying on his side relieves the pain. He also reports relief with morphine given in ED. He has had associated shortness of breath, mostly with talking. Also has complaints of dysuria x 2 months and states he has kidney stones and was scheduled for surgery this Sunday but due to weather was cancelled. Upon arrival to ED patient mildly bradycardic with HR in the 50's and hypertensive. EKG NS. CXR suggestive of vascular congestion. Lab findings with mild leukocytosis, macrocytic anemia, elevated ddimer, and elevated AST. BNP and trops x 2 unremarkable. Nitro and morphine given in ED which has provided some relief. Plan for admission for ACS r/o. Will consult cardiology, obtain CTA and echo. Repeat EKG in the a.m. Pain control. Cardiology consulted -trops negative and EKG non-ischemic. [facility] last year with non obstructive disease. Recommendations for cardiac stress test as OP. CT abdomen with distended GB. GB US with distended GB and tiny stone. Prominent bile duct without biliary tree distention. Surgery consulted, unco mplicated lap cholecystecomy performed 05/22/24. Patient doing well s/p surgery. Follow up scheduled with surgery. Pain meds sent to pharmacy. Patient stable for discharge. Advised ambulation. Cardiology follow to evaluate need for stress test . Discharge Note Latest Assessment & Plan (1) Chest pain Current Visit: Yes Status: Acute Qualifiers: Chest pain type: unspecified Qualified Code(s): R07.9 - Chest pain, unspecified Assessment & Plan: -EKG NS in ED -Trops reviewed x 2 neg -pain control -cardiology consult, appreciate recs -echo -h/o PR -cath with no stents -Follows with Dr. Soto OP -CTA -CXR reviewed demonstrating vascular congestion 05/21/24: -CTA reviewed and negative for PE- no cardiopulmonary abnormalities. Incidental distended gallbladder noted - will order GB US- could be cause of chest pain with radiation to the back -Cardiology consult reviewed and discussed - patient to follow up with cardiology OP for stress test Code(s): R07.9 - CHEST PAIN, UNSPECIFIED ABnormal CT imaging -CT with distended GB as stated above -US GB and surgery consulted ordered - add zosyn Cholelithiasis -CT abd/pelvis reviwed with distended GB -GB US with distended GB and tiny stones. Prominent biliary duct with no distention of the biliary tree (2) Elevated d-dimer Current Visit: Yes Status: Acute Assessment & Plan: -DDimer reviewed at 1.21- will obtain CTA to r/o PE 05/21/24: -CTA reviewed and negative for PE Code(s): R79.89 - OTHER SPECIFIED ABNORMAL FINDINGS OF BLOOD CHEMISTRY (3) Macrocytic anemia Current Visit: Yes Status: Acute Assessment & Plan: -Hgb reviewed and stable at 13.0 05/21/24: -Hgb reviewed and remains stable at 13.2 : -Hgb reviewed and stable at 12.7 Code(s): D53.9 - NUTRITIONAL ANEMIA, UNSPECIFIED (4) History of stroke Current Visit: Yes Status: Acute Assessment & Plan: -Noted, continue home asprin/atorvastatin Code(s): Z86.73 - PRSNL HX OF TIA (TIA), AND CEREB INFRC W/O RESID DEFICITS (5) History of seizure Current Visit: Yes Status: Acute Assessment & Plan: -Patient states with injury - does not take seizure meds Code(s): Z87.898 - PERSONAL HISTORY OF OTHER SPECIFIED CONDITIONS (6) HTN (hypertension) Current Visit: Yes Status: Acute Assessment & Plan: -stable continue home meds Code(s): I10 - ESSENTIAL (PRIMARY) HYPERTENSION (7) HLD (hyperlipidemia) Current Visit: Yes Status: Acute Assessment & Plan: -continue home statin Code(s): E78.5 - HYPERLIPIDEMIA, UNSPECIFIED (8) CHF (congestive heart failure) Current Visit: Yes Status: Acute Assessment & Plan: -No recent echo on file - will obtain -continue home medications -BNP reviewed at 468 -CXR with vascular congestion -lasix 40mg bid -cardiology consult pending -CTA pending -optimize electrolytes -elevated HOB/daily weights 05/21/24: -CTA as stated above -will dc lasix as no vascular congestion shown on CTA - no edema on exam - creat starting to increase Code(s): I50.9 - HEART FAILURE, UNSPECIFIED (9) MT (obstructive sleep apnea) Current Visit: Yes Status: Acute Assessment & Plan: -continue home regimen Code(s): G47.33 - OBSTRUCTIVE SLEEP APNEA (ADULT) (PEDIATRIC) (10) RLS (restless legs syndrome) Current Visit: Yes Status: Acute Assessment & Plan: -continue home meds (11) History of kidney stones Current Visit: No Status: Chronic Assessment & Plan: -Patient states surgery was scheduled for this Sunday but cancelled due to weather - f/u OP -UA negative I spent 35 minutes [id number] with the patient on the day of discharge performing discharge exam, discussing hospital stay and discharge instructions with patient and caregivers, preparation of discharge records, prescriptions & referral forms and addressing any questions/concerns the patient had as documented above. - Vitals & Intake/Output Vital Signs: Vital Signs Temperature 97.5 F 05/23/24 03:44 Pulse Rate 64 05/23/24 03:44 Respiratory Rate 17 05/23/24 03:44 Blood Pressure 139/83 05/23/24 03:44 O2 Sat by Pulse Oximetry 94 L 05/23/24 03:44 Intake & Output: Intake & Output 05/20/24 05/21/24 05/22/24 05/23/24 11:59 11:59 11:59 11:59 Intake Total 120 1500 1522 1690 Output Total 250 3625 1300 650 Balance -130 -2125 222 1040 Weight 91.1 kg 91.3 kg - Lab Result Diagrams: 05/23/24 05:13 05/23/24 05:13 Lab Results-Last 24 Hrs: Lab Results-Last 24 Hours 05/22/24 Range/Units 05:00 Sodium 140 (135-145) mmol/L Potassium 3.7 (3.5-5.1) mmol/L Chloride 106 (98-107) mmol/L Carbon Dioxide 34 H (22-30) mmol/L Anion Gap 4.4 L (5-15) MEQ/L BUN 17 (9-20) mg/dL Creatinine 1.21 (0.66-1.25) mg/dL Estimated GFR 66.0 ML/MIN Glucose 102 (74-106) mg/dL Calcium 8.9 (8.4-10.2) mg/dL Magnesium 2.0 (1.6-2.3) mg/dL Total Bilirubin 0.30 (0.2-1.3) mg/dL AST 39 (17-59) U/L ALT 34 (0-50) U/L Alkaline Phosphatase 57 (38-126) U/L Serum Total Protein 6.6 (6.3-8.2) g/dL Albumin 3.5 (3.5-5.0) g/dL - Radiology Exams Ordered Rad Exams-Entire Visit: Radiology Procedures Category Date Time Status GALLBLADDER [US] Urgent Exams 05/21/24 08:00 Completed - Procedures and Test Procedures and Tests throughout Hospitalization: Therapy Orders & Screens 05/20/24 11:23 EKG REPEAT IN AM Comment: Diagnosis: ACS, Chest pain Discharge Exam General Appearance: no apparent distress Neurologic Exam: alert, oriented x 3, cooperative Eye Exam: PERRL Ears, Nose, Throat Exam: normal ENT inspection Neck Exam: normal inspection Respiratory Exam: normal breath sounds, lungs clear Cardiovascular Exam: regular rate/rhythm, normal heart sounds Gastrointestinal/Abdomen Exam: soft, normal bowel sounds Male Genitalia Exam: deferred Rectal Exam: deferred Back Exam: normal inspection Extremity Exam: normal inspection Skin Exam: other (4 surgical puncture sites covered in gauze and tegaderm CDI) Final Diagnosis/Problem List - Final Discharge Diagnosis/Problem (1) Chest pain Current Visit: Yes Status: Resolved Code(s): R07.9 - CHEST PAIN, UNSPECIFIED (2) Elevated d-dimer Current Visit: Yes Status: Acute Code(s): R79.89 - OTHER SPECIFIED ABNORMAL FINDINGS OF BLOOD CHEMISTRY (3) Cholelithiases Current Visit: Yes Status: Resolved (4) Macrocytic anemia Current Visit: Yes Status: Chronic Code(s): D53.9 - NUTRITIONAL ANEMIA, UNSPECIFIED (5) History of stroke Current Visit: Yes Status: Chronic Code(s): Z86.73 - PRSNL HX OF TIA (TIA), AND CEREB INFRC W/O RESID DEFICITS (6) History of seizure Current Visit: Yes Status: Chronic Code(s): Z87.898 - PERSONAL HISTORY OF OTHER SPECIFIED CONDITIONS (7) HTN (hypertension) Current Visit: Yes Status: Chronic Code(s): I10 - ESSENTIAL (PRIMARY) HYPERTENSION (8) HLD (hyperlipidemia) Current Visit: Yes Status: Chronic Code(s): E78.5 - HYPERLIPIDEMIA, UNSPECIFIED (9) CHF (congestive heart failure) Current Visit: Yes Status: Chronic Code(s): I50.9 - HEART FAILURE, UNSPECIFIED (10) MT (obstructive sleep apnea) Current Visit: Yes Status: Chronic Code(s): G47.33 - OBSTRUCTIVE SLEEP APNEA (ADULT) (PEDIATRIC) (11) RLS (restless legs syndrome) Current Visit: Yes Status: Chronic (12) History of kidney stones Current Visit: No Status: Chronic Code(s): Z87.442 - PERSONAL HISTORY OF URINARY CALCULI (13) Abnormal CT of the abdomen Current Visit: Yes Status: Chronic Code(s): R93.5 - ABN FINDINGS ON DX IMAGING OF ABD REGIONS, INC RETROPERITON - Discharge Discharge Date: 05/23/24 Disposition: Home, Self-Care Condition: Stable Prescriptions: New Hydrocodone/Acetaminophen [Hydrocodone-Acetamin 5-325 mg] 1 - 2 tab PO Q6HPRN PRN 7 Days #28 tablet MDD 8 PRN Reason: Pain Continue Trazodone HCl 50 mg [Desyrel 50 mg] 50 mg PO HS Furosemide 20 mg [Lasix 20 mg] 20 mg PO DAILY Atorvastatin Calcium [Lipitor 40Mg] 40 mg PO DAILY Gabapentin [Neurontin] 800 mg PO TID Tamsulosin HCl 0.4 mg [Flomax 0.4 MG] 0.4 mg PO DAILY Vibegron [Gemtesa] 75 mg PO HS Fenofibrate 54 mg PO DAILY Losartan Potassium 100 mg PO DAILY Potassium Chloride 20 meq PO DAILY Hydrocodone/Acetaminophen [Hydrocodone-Acetamin 5-325 mg] 1 tab PO Q6HPRN PRN 3 Days #12 tablet MDD 4 PRN Reason: Pain Metoprolol Tartrate 50 mg [Lopressor 50 MG] 1 tab PO DAILY Vit C/E/Zn/Coppr/Lutein/Zeaxan [Preservision Areds 2 Chew Tab] 1 tab PO DAILY Follow up with: EVAN MOISE DO [Primary Care Provider] - 05/26/24 3:30 pm HUSEYIN CHAIDEZ MD [ACTIVE STAFF] - 06/05/24 9:35 am (at [facility] ) MITCHELL GUERRA PA [NON-STAFF PHY W/O PRIVILEGES] - 06/10/24 9:45 am
[2024-05-23 05:20] LABS: Absolute Neutrophil Ct (ANC) 12.12 x10^3/uL (1.78-5.38); BASOPHIL % 0.1 % (0.2-1.2); Basophil (Absolute #) 0.02 x10^3/uL (0.01-0.08); Eosinophil % 0.1 % (0.8-7.0); Eosinophil (Absolute #) 0.02 x10^3/uL (0.04-0.54); Hematocrit 41.1 % (40.1-51.0); Hemoglobin 13.6 g/dL (13.7-17.5); IMMATURE GRAN # 0.05 x10^3u/L (0.001-0.031); IMMATURE GRAN % 0.4 % (0.001-0.429); Lymphocyte (Absolute #) 0.68 x10^3/uL (1.32-3.57); Lymphocytes % 4.9 % (21.8-53.1); Mean Cell Volume 93.2 fL (79.0-92.2); Mean Corpuscular Hemoglobin 30.8 pg (25.7-32.2); Mean Corpuscular Hgb Concent. 33.1 g/dL (32.3-36.5); Mean Platelet Volume 9.5 fL (9.4-12.4); Monocyte (Absolute #) 0.93 x10^3/uL (0.30-0.82); Monocytes % 6.7 % (5.3-12.2); Neutrophil % 87.8 % (34.0-67.9); Platelet Count 242 x10^3/uL (163-337); Red Blood Count 4.41 x10^6/uL (4.63-6.08); Red Cell Distribution Width 13.4 % (11.6-14.4); White Blood Count 13.8 x10^3/uL (4.23-9.07)
[2024-05-23 05:48] LABS: ANION GAP 9.8 MEQ/L (5-15); BILIRUBIN,TOTAL 0.6 mg/dL (0.2-1.3); Calcium 9.4 mg/dL (8.4-10.2); Creatinine 1 1.09 mg/dL (0.66-1.25); EST GLOMERULAR FILTRATION RATE 74.9 ML/MIN; Total Protein 7.4 g/dL (6.3-8.2)
[2024-05-23] MEDS: TYLENOL 325 MG PO PRN (10:18)
[2024-05-23 11:32] VITALS: BP 181/91; PULSE 62; RESP 20; TEMP 98.4; O2SAT 96
--- NOTE | 2024-05-23 15:17 | OP ---
SURGERY DATE/TIME: 05/22/2024 [id number] PREOPERATIVE DIAGNOSIS: Cholecystitis. POSTOPERATIVE DIAGNOSIS: Cholecystitis. PROCEDURE: Laparoscopic cholecystectomy. SURGEON: Cem Ye MD ANESTHESIA: General. ESTIMATED BLOOD LOSS: Minimal. PATIENT CONDITION: Stable. COMPLICATIONS: None. SPECIMENS: Gallbladder. INDICATIONS: The patient is a 64-year-old male that presents with acute abdominal pain imaging consistent with cholecystitis, though initially not with any wall thickening. He does have 2 days of constant pain. Tender on exam and nonobstructive labs. I had discussion with the patient. Risk of infection, bleeding, injury to nearby structure, hernia, negative examination. Option of pursuing a HIDA scan or maybe elective cholecystectomy but ultimately consistent with acute cholecystitis. Would recommend cholecystectomy and he wants to proceed with that. FINDINGS: Acutely edematous, inflamed gallbladder, friable, critical view. DESCRIPTION OF PROCEDURE AND FINDINGS: The patient was brought to the operating room. General anesthesia induced. Routinely positioned, prepped, and draped. Time-out performed. Received preoperative antibiotics. The Veress needle inserted left upper quadrant. Pneumoperitoneum established. A 5 mm Optiview trocar placed left upper quadrant. The 11 mm right paramedian trocar placed. Two additional 5 mm trocars placed in the right upper quadrant. The gallbladder was grasped and retracted. Immediately, there is perforation of the gallbladder. No spillage of stones grossly. The gallbladder is very edematous and friable but the cystic ducts and cystic artery are dissected out and the critical view is clearly obtained. The duct does appear wide, so the left upper quadrant was upsized to a 12 trocar site and then the white load RANDY stapler was then used to divide the cystic duct. The cystic artery taken with 5 mm metal clips. A couple of small branches were taken with the 5 mm clip tire builder operator but this is clearly the critical view. The gallbladder was taken off the liver bed. It was then placed in a specimen bag, removed through the 12 mm left upper quadrant trocar site. Right upper quadrant reinspected. There is good hemostasis. He was a little oozy during the case, so the Fibrillar is placed and it is totally dry and hemostatic. The 12 and 11 closed with 0 Vicryl interrupted suture passer. The right upper quadrant port was removed. The Marcaine had been injected to all the incision sites. The skin was closed with 4-0 Vicryl suture. Steri-Strips and sterile dressings applied. All counts were correct. The patient tolerated the procedure well. Plan was for extubation.
== END 2024-05-23 13:25 | disposition home or self-care (01) ==
LOC: ED 03:34 → MED SURG 07:40
PROVIDERS: ADMIT Internal Medicine; ATTEND Internal Medicine
DX: R07.9 Chest pain, unspecified (principal); K80.20 Calculus of gallbladder without cholecystitis without obstruction; R79.89 Other specified abnormal findings of blood chemistry; D53.9 Nutritional anemia, unspecified; Z86.73 Personal history of transient ischemic attack (TIA), and cerebral infarction without residual deficits; Z87.898 Personal history of other specified conditions; E78.5 Hyperlipidemia, unspecified; I11.0 Hypertensive heart disease with heart failure; I50.9 Heart failure, unspecified; G47.33 Obstructive sleep apnea (adult) (pediatric); G25.81 Restless legs syndrome; Z87.442 Personal history of urinary calculi; I25.2 Old myocardial infarction; R93.5 Abnormal findings on diagnostic imaging of other abdominal regions, including retroperitoneum; I25.10 Atherosclerotic heart disease of native coronary artery without angina pectoris; Z79.899 Other long term (current) drug therapy; I49.5 Sick sinus syndrome
CPT/HCPCS: 36415; 47562; 71045; 71260; 76705; 80053; 81001; 83690; 83735; 83880; 84484; 85025; 85379; 93005; 93041; 93306; 94760; 96374; 99285; Q3014; 93268; J1100; J1650; J1885; J1940; J2250; J2270; J2405; J2704; J3010; A9270-GY; G0378